=== PATIENT | female | born 1965 | race Caucasian/White ===

== ENCOUNTER 2016-04-20 17:24 | Emergency (ER) | payer OTHER ==
--- NOTE | 2016-04-20 18:55 | DIAGNOSTIC IMAGING REPORT ---
PROCEDURE: XR CHEST 1 VIEW INDICATION: CHEST PAIN, initial encounter TECHNIQUE: Portable AP view 06:23 p.m. COMPARISON: Chest x-ray 01/21/2014 FINDINGS: Lungs are clear. Heart and mediastinum are normal. Thorax is normal. No significant interval change. IMPRESSION: 1. Negative chest.
--- NOTE | 2016-04-20 20:21 | ED NURSING NOTES ---
Clinical Report - Nurses [facility] [address] [place] [address] 04/20/2016 17:28 Patient: MICHELLE JAY TRIAGE Triage time 1734 PM. Acuity: LEVEL 2. Chief Complaint: CHEST PAIN and SHORTNESS OF BREATH and DIFFICULTY BREATHING. Alert. No acute distress. SEPSIS SCREEN: Sepsis Screen. Negative (no infection suspected/documented). CALI COMA SCORE: Rawlins Coma Scale: 15- eyes open spontaneously (4); best verbal response- oriented x 4 (5); best motor response- obeys commands (6). --17:49 Caron Alvarado R.N. 17:33 04/20/16. BP: 180/74 (regular adult cuff) taken on the left arm, via an automated monitor, while sitting. HR: 74 (regular and normal rate). RR: 22. O2 saturation: 100%. Temp: 97.9 F (oral). Pain level now: 0/10. --17:49 Caron Alvarado R.N. Weight: 81.6 kg stated. Height/Length: 65 inches Per Patient. BMI: 30. --17:35 Caron Alvarado R.N. Medications Atenolol Oral 50 mg, 2x a day. --17:36 Caron Alvarado R.N. Tums Oral. --17:49 Caron Alvarado R.N. Allergies No Known Drug Allergy. --17:36 Caron Alvarado R.N. Medication/allergy information source: the patient. --17:49 Caron Alvarado R.N. History Arrived by private vehicle. Historian: patient. Accompanied by family. Primary physician (Dr. Black). Onset. (3 days). ( Pt states having these symptoms for about 5 days on and off, chest pain/right mid section, sweaty hands, and sweaty feet, denies n/v. Pt states last episode of CP about 1 hr ago, decided to come to ER to get evaluated.). She has had difficulty breathing. Reports experiencing sweating episodes. No nausea, vomiting, fever or cough. 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 PAST MEDICAL HX: Immunizations: status is unknown. ( Pt states having "fast heart rate, diagnosed in her 20's and takes Atenolol.). FAMILY HX: Heart disease in first-degree relative (mother, father and sibling); stroke in first-degree relative (mother). SOCIAL HX: Never smoker. No alcohol use. No infectious disease exposure. ABUSE ASSESSMENT: No report of abuse. SELF HARM ASSESSMENT: A self harm assessment was performed. The patient answered "no" to the question "Do you have thoughts of harming or killing yourself?" and "Have you recently had thoughts about harming or killing others?". FALL RISK ASSESSMENT: Fall risk assessment completed. No fall risk identified. NUTRITIONAL RISK ASSESSMENT: The nutritional risk assessment revealed no deficiencies. FUNCTIONAL ASSESSMENT: Functional assessment: no impairments noted. LEARNING NEEDS ASSESSMENT: The learning needs assessment revealed no barriers. SKIN INTEGRITY ASSESSMENT: Skin integrity risk assessment completed. No skin integrity risk identified. --17:49 Caron Alvarado R.N. PROBLEMS: Diarrhea. Chest Wall Pain. LNMP - Last Normal Menstrual Period. Arrhythmia. Immunizations. Palpitations. Gastroenteritis. Hypertension. --17:37 Caron Alvarado R.N. Factor IV. --17:45 Caron Alvarado R.N. Reflux. --17:49 Caron Alvarado R.N. ADDITIONAL SURGERIES: Cholecystectomy. . Ectopic . --17:37 Caron Alvarado R.N. Interventions ID band on patient. --17:49 Caron Alvarado R.N. PHYSICAL ASSESSMENT Ambulatory to room. GENERAL / NEURO / PSYCH: Alert. Oriented X 4. Appears in no acute distress. HEENT: Mucous membranes are pink. RESPIRATORY: Respirations not labored. Chest nontender. Breath sounds within normal limits. CVS: Normal sinus rhythm noted. Heart sounds within normal limits. Pulses within normal limits. Capillary refill less than 2 seconds. GI / : Abdomen soft and nontender. EXTREMITIES: No lower extremity edema. SKIN: Skin is warm and dry. Normal skin turgor. Skin is non-tender. --17:50 Caron Alvarado R.N. NURSING PROGRESS NOTES 17:47 04/20/2016 Site #1 started via IV in the left antecubital space with an 20g angiocath; one attempt. Blood drawn: rainbow set. Labeled in the presence of the patient and sent to the lab. --17:52 Caron Alvarado R.N. 17:45 04/20/16. BP: 145/75 (regular adult cuff) taken on the right arm, via an automated monitor, while lying. HR: 70. RR: 15. O2 saturation: 97% on room air. Pain level now: 0/10. --17:54 Caron Alvarado R.N. Cardiac rhythm: normal sinus rhythm. The initial plan of care for this patient has been created This plan of care was discussed with the patient. Monitoring of patient in place. EKG was performed by a fernando and shown to the ED physician. Patient gowned and refused to place gown on. Warming measures: blanket applied. Reassurance given and given. Two patient identifiers checked. Call light placed in reach. Side rails up x 1. Bed placed in lowest position. Brakes of bed on. Brakes of chair on. --17:54 Caron Alvarado R.N. 18:22 04/20/2016 Started bag #1 1000 mL IV Fluids IV NS (Saline); bolus of 1000 mL over 1 hour(s) then at 1000 mL/hr over 1 hour(s) via site #1 --18:22 Caron Alvarado R.N. 18:23 04/20/2016 Aspirin PO Tablets 325 mg given. Allergies verified and confirmed 5 rights. --18:23 Caron Alvarado R.N. Monitoring of patient in place. Portable chest x-ray performed. Reassurance given. The patient is calm. Overall patient status is improved- she states feels the same. GENERAL / NEURO / PSYCH: Denies anxiety. HEENT: Denies headache. RESPIRATORY: Denies difficulty breathing. Respiratory distress present. Breath sounds abnormal. CVS: Denies chest pain. Normal sinus rhythm noted. GI / : Denies nausea. SKIN: Skin is warm and dry. Skin color within normal limits. Two patient identifiers checked. Call light placed in reach. Side rails up x 1. Brakes of bed on. Brakes of chair on. --18:25 Caron Alvarado R.N. 18:15 04/20/16. BP: 122/78 (regular adult cuff) taken on the right arm, via an automated monitor, while lying. HR: 68 (regular). RR: 15. O2 saturation: 99% on room air. Pain level now: 010. --18:25 Caron Alvarado R.N. ( Cardiac rhythm: normal sinus rhythm. Reassurance given. Reassessment after fluids administered and medication administered. She is calm and resting quietly and has had no adverse reaction. Overall patient status is improved- she states feels better. ( Denies any CP or SOB, calm resting in bed.). GENERAL / NEURO / PSYCH: Denies pain or anxiety. RESPIRATORY: Denies difficulty breathing. No respiratory distress present. Respiratory distress present. Breath sounds normal. No decreased breath sounds. SKIN: Denies itching or swelling. Skin is warm and dry. Skin color within normal limits. Two patient identifiers checked. Call light placed in reach. Side rails up. Bed placed in lowest position. Brakes of bed on. Brakes of chair on. 19:20 Caron Alvarado R.N.). --19:22 Caron Alvarado R.N. 19:00 04/20/16. BP: 115/65. HR: 70. RR: 15. O2 saturation: 100% on room air. Temp: 97.9 F (oral). --19:23 Caron Alvarado R.N. Cardiac rhythm: normal sinus rhythm. --19:23 Caron Alvarado R.N. 19:37 04/20/2016 IV Fluids IV NS Discontinued: bag #1 completed. Total amount infused: 1000 mL. IV patency established. IV site checked: no pain, redness, or swelling. IV flushed thoroughly. --20:38 Sarahi García. DISPOSITION / DISCHARGE 20:36 04/20/16. BP: 122/71. HR: 66. RR: 20. O2 saturation: 100% on room air. Temp: deferred. Pain level now: 210. --20:37 Sarahi García 20:32 04/20/2016 Site #1 removed upon discharge. Catheter intact. Bandaid applied. --20:37 Sarahi García 20:37 04/20/16. Condition at departure: stable. No learning barriers present. Discharge instructions provided and reviewed with the patient and spouse. Patient and spouse verbalized understanding. Written instructions provided in Austrian. ( Follow up with PCP for next available appointment. Return if symptoms worsen.). The patient was discharged by the physician. She was discharged home and accompanied by spouse. She left the Emergency Department ambulatory and via private vehicle. Spouse driving. FALL RISK ASSESSMENT: Fall risk assessment completed. No fall risk identified. --20:37 Sarahi García. Locked/Released at 04/20/2016 21:08 by Sarahi García,
--- NOTE | 2016-04-20 20:21 | ED CLINICAL REPORT ---
Clinical Report - Physicians/Mid Levels [facility] [address] [place] [address] 04/20/2016 17:28 Patient: MICHELLE JAY Time Seen: 17:34. Arrived- By private vehicle. Historian- patient. HISTORY OF PRESENT ILLNESS Chief Complaint: CHEST DISCOMFORT. At its maximum, severity described as moderate. When seen in the E.D., it was almost gone. Modifying factors. Not worsened by anything. Not relieved by anything. It is described as sharp, "pain" and diffuse. No radiation. This started about 5 days ago and is still present. It has been intermittent. The patient cannot recall the circumstances at the onset. No nausea, vomiting or diaphoresis. She has had mild difficulty breathing. (Pt states she also has been having sweaty palms, but no diaphoresis otherwise. She states she saw her doctor recently, but her doctor did not seem concerned about this. Pt states she did have an in-depth cardiac work-up about 1 year ago, including CT coronary angiogram, which was negative. She sees a gui developer occasionally for dysrhythmia, but was cleared from the standpoint of CAD, she states. Pt states she is worried about blood clots, because she has a coagulopathy. However, she states she is not on anticoagulants, because she has 3 different clotting disorders that cancel each other out. Pt denies history of clots; she states she was worked up because a close relative had a clot. Pt denies pain or swelling in her lower extremities.). Similar symptoms previously: Recent medical care: The patient was seen recently at another facility in a clinic. REVIEW OF SYSTEMS No fever, chills, cough, pedal edema or calf pain. No fainting episodes, headache, sore throat, blurred vision or abdominal pain. No black stools, difficulty with urination, skin rash, enlarged lymph nodes or joint pain. No bloody stools. All systems otherwise negative, except as recorded above. PAST HISTORY Problems: Reflux. Factor IV. LNMP - Last Normal Menstrual Period. Arrhythmia. Immunizations. Palpitations. Gastroenteritis. Hypertension. Additional Surgeries: Cholecystectomy. . Ectopic . Medications: Tums Oral. Atenolol Oral 50 mg, 2x a day. Allergies: No Known Drug Allergy. SOCIAL HISTORY Never smoker. No alcohol use or drug use. ADDITIONAL NOTES The nursing notes have been reviewed. PHYSICAL EXAM Vital Signs: 04/20/2016 17:33 BP: 180/74. HR: 74. RR: 22. O2 saturation: 100%. Temp: 97.9 F. Pain level now: 0/10. Have been reviewed. Appearance: Alert. Oriented X3. No acute distress. Eyes: Pupils equal, round and reactive to light. Eyes normal inspection. ENT: Nose normal. Neck: Normal inspection. Neck supple. CVS: Normal heart rate and rhythm. Heart sounds normal. Pulses normal. Respiratory: No respiratory distress. Breath sounds normal. Chest nontender. Abdomen: Soft and nontender. Back: Normal external inspection. Skin: Skin warm and dry. Normal skin color. No rash. Normal skin turgor. Extremities: Extremities exhibit normal ROM. No calf tenderness. No lower extremity edema. (Calves are symmetrical bilaterally.). Neuro: Oriented X 3. No motor deficit. No sensory deficit. LABS, X-RAYS, AND EKG EKG: EKG time: (1740). No acute process. No acute ischemia. Normal EKG. Normal sinus rhythm. Rate: 74. Normal P waves. Normal CORKY. Normal QRS complex. Normal axis. Normal ST and T waves, QT and QTc. Prior EKG unavailable. The study has been interpreted contemporaneously by me. The study has been independently viewed by me. The EKG appears to be a good tracing. I agree with and confirm the computer reading of the EKG. Rhythm Strip #1: Time: (1747). Rate= 75. Normal sinus rhythm. Regular rhythm. Narrow QRS complexes. No ectopy. Conduction normal. Normal ST segments and T waves. The study was interpreted by me. Chest X-ray: No acute disease. Normal lung markings present. Normal heart size. Mediastinum normal. Great vessels normal. Soft tissues normal. No infiltrate. No fracture. No bony lesion present. Views: AP (portable). Technique: good. The X-rays were independently viewed by me, interpreted by the radiologist and contemporaneously by me and discussed with the radiologist. Prior films were not available for comparison. Laboratory Tests: CBC w Diff: (MARY: 04/20/2016 17:45) ( [facility] 18:22) Final results Test Result Flag Units (Reference) WHITE BLOOD COUNT 8.6 K/uL (4.5-11.5) RED BLOOD COUNT 4.57 M/uL (4.00-5.20) HEMOGLOBIN 13.7 gm/dL (12.0-16.0) HEMATOCRIT 42.0 % (36.0-46.0) MEAN CELL VOLUME 92 fL (80-100) MEAN CORPUSCULAR HGB 30 pg (26-34) MEAN CORPUSCULAR HGB CONC 33 g/dL (31-37) RED CELL DISTRIBUTION WIDTH 13.4 % (11.6-14.8) PLATELET COUNT 281 K/uL (150-400) NEUTROPHIL % 60.1 % (50-75) LYMPH % 29.4 % (25-40) MONO % 9.1 % (3-14) EOSINOPHIL % 0.9 % (0-4) BASOPHIL % 0.5 % (0-2) CHEM 13 PANEL: (MARY: 04/20/2016 17:45) ( [facility] 04/20/2016 18:48) Final results Test Result Flag Units (Reference) GLUCOSE 112 H mg/dL (70-110) BUN 18 mg/dL (7-18) CREATININE 0.9 mg/dL (0.6-1.3) Estimated GFR >60 mL/min Estimated GFR- >60 mL/min Note: Persistent reduction over 3 months in eGFR<60 mL/min/1.73 m2 defines CKD. Patients with eGFR values>=60 mL/min/1.73 m2 may also have CKD if evidence ofpersistent proteinuria. Additional information may be foundat www.kidney.org. SODIUM 142 mmol/L (136-145) POTASSIUM 3.7 mmol/L (3.5-5.1) CHLORIDE 104 mmol/L (98-107) CARBON DIOXIDE 28 mmol/L (21-32) CALCIUM 9.2 mg/dL (8.5-10.1) TOTAL PROTEIN 8.1 g/dL (6.4-8.2) ALBUMIN 3.8 g/dL (3.3-5.0) BILIRUBIN, TOTAL 0.6 mg/dL (0.0-1.0) ALKALINE PHOSPHATASE 95 U/L (46-116) AST (SGOT) 26 U/L (15-37) ALT (SGPT) 34 U/L (12-78) MAGNESIUM 2.3 mg/dL (1.8-2.4) CPK 82 U/L (24-260) TROPONIN I <0.05 L ng/mL (0.00-1.5) TROPONIN REFERENCE RANGE:<0.1 NEGATIVE0.1-1.5 INDETERMINANT>1.5 POSITIVE . Pulse Oximetry: 04/20/2016 17:33 O2 saturation: 100%. (FIO2 - room air). Interpretation: normal. PROGRESS AND PROCEDURES Course of Care: Pt was worked up for her sx, and given a liter of NS and a dose of ASA. Pt had atypical sx, which were waxing and waning, and additionally, did not have any signs or sx or DVT. However, she did have the reported history of coagulopathy (though the details were somewhat vague), and I did feel that she should have a CTA, to evaluate for a PE. I did discuss this with the pt, but she was resistant to the idea, stating that now she feels better, and does not think it is a clot, after all. After a lengthy discussion, pt declined the CTA. Pt did have a fairly recent, extensive, negative cardiac work-up, as well, and I felt that an impending coronary event was also unlikely at this time. Patient and spouse counseled in person regarding the patient's stable condition, test results, diagnosis and need for follow-up. Concerns were addressed. Old medical records reviewed. Disposition: Discharged. Condition: stable and improved. CLINICAL IMPRESSION Chest pain .12 lead EKG performed. INSTRUCTIONS Warnings: GENERAL WARNINGS: Return or contact your physician immediately if your condition worsens or changes unexpectedly, if not improving as expected, or if other problems arise. Your Current Medications: CONTINUE TAKING THE FOLLOWING MEDICATIONS: Atenolol Oral : 50 mg 2x a day. Tums Oral. Follow-up: Follow up with your doctor. Call for the next available appointment. Reason for referral: Follow up ER visit. Understanding of the discharge instructions verbalized by patient. (Electronically signed by Rebeca Schaeffer MD 04/24/2016 21:34)
--- NOTE | 2016-04-20 20:21 | ED ORDER SUMMARY ---
..... Patient: MICHELLE JAY OrderSheet [facility] VisitID: [id number] [address] [place] [address] 50y, F Registration Date/Time: 04/20/2016 ORDER SHEET Weight: 81.6 kg (stated) Allergies: No Known Drug Allergy GENERAL ORDERS: Chest 1V Urgent (18:15 04/20/2016 Katja LANZA) (Ack 18:31 LTapper) (18:56 MCampbell) Yard Spotter (Continuous) (18:15 04/20/2016 Katja LANZA) (18:16 EHassan R.N.) Cardiac Panel Stat (18:16 04/20/2016 Katja LANZA) (Ack 18:31 LTapper) (19:49 VASILEullard R.N.) Pulse oximeter (18:16 04/20/2016 Katja LANZA) (18:16 EHassan R.N.) EKG - ER Stat (18:16 04/20/2016 Katja LANZA) (18:17 EHassan R.N.) CTA Thorax w Cont (No) (Normal) Urgent (19:15 04/20/2016 Katja LANZA) (Ack 19:26 LMuller) MEDICATION ORDERS: Aspirin PO 325 mg (NOW) (18:22 04/20/2016 EHassan R.N. verbal order read back to Katja LANZA) (18:23 EHassan R.N.) IV FLUIDS: IV NS : initial bolus 1000 mL (1000 mL/hr), then none - (NOW) (18:15 04/20/2016 Katja LANZA) (18:22 EHassan R.N.) ORDER SHEET NOTES: [Electronically signed by Sarahi García (21:08 04/20/2016)] [Electronically signed by Rebeca Schaeffer MD (21:34 04/24/2016)] [Electronically locked/signed by Sarahi García (21:08 04/20/2016)]
--- NOTE | 2016-04-20 20:21 | ED ORDER SUMMARY ---
..... Patient: MICHELLE JAY OrderSheet [facility] VisitID: [id number] [address] [place] [address] 50y, F Registration Date/Time: 04/20/2016 ORDER SHEET Weight: 81.6 kg (stated) Allergies: No Known Drug Allergy GENERAL ORDERS: Chest 1V Urgent (18:15 04/20/2016 Katja LANZA) (Ack 18:31 LTapper) (18:56 MCampbell) Pedigree Tracer (Continuous) (18:15 04/20/2016 Katja LANZA) (18:16 EHassan R.N.) Cardiac Panel Stat (18:16 04/20/2016 Katja LANZA) (Ack 18:31 LTapper) (19:49 VASILEullard R.N.) Pulse oximeter (18:16 04/20/2016 Katja LANZA) (18:16 EHassan R.N.) EKG - ER Stat (18:16 04/20/2016 Katja LANZA) (18:17 EHassan R.N.) CTA Thorax w Cont (No) (Normal) Urgent (19:15 04/20/2016 Katja LANZA) (Ack 19:26 LMuller) MEDICATION ORDERS: Aspirin PO 325 mg (NOW) (18:22 04/20/2016 EHassan R.N. verbal order read back to Katja LANZA) (18:23 EHassan R.N.) IV FLUIDS: IV NS : initial bolus 1000 mL (1000 mL/hr), then none - (NOW) (18:15 04/20/2016 Katja LANZA) (18:22 EHassan R.N.) ORDER SHEET NOTES: [Electronically signed by Sarahi García (21:08 04/20/2016)] [Electronically signed by Rebeca Schaeffer MD (21:34 04/24/2016)] [Electronically locked/signed by Sarahi García (21:08 04/20/2016)]
--- NOTE | 2016-04-24 21:35 | ED MED RECONCILIATION SUMMARY ---
Patient: MICHELLE JAY Medication Reconciliation Report [facility] VisitID: [id number] [address] [place] [address] 50y, F Registration Date/Time: 04/20/2016 Weight: 81.6 kg Height/Length: 65 in. BMI: 30.0 ALLERGIES: No Known Drug Allergy The patient's Home Medications are listed below: CONTINUE TAKING THE FOLLOWING MEDICATIONS: Atenolol Oral 50 mg, 2x a day Tums Oral The source(s) of the original Home Medication information: patient The following Medications were given to the patient in the Emergency Department: IV NS IV Fluids bolus 1000 mL over 1 hour(s), then 1000 mL/hr, administered: 04/20/2016 6:22:00 PM Aspirin [PO] PO 325 mg, administered: 04/20/2016 6:23:00 PM The following Medications were prescribed to the patient: None.
--- NOTE | 2016-04-24 21:35 | ED DISCHARGE INSTRUCTIONS ---
Patient: MICHELLE JAY General Instructions [facility] VisitID: [id number] [address] [place] [address] 50y, F Registration Date/Time: 04/20/2016 Chest pain .12 lead EKG performed. INSTRUCTIONS Warnings: GENERAL WARNINGS: Return or contact your physician immediately if your condition worsens or changes unexpectedly, if not improving as expected, or if other problems arise. Your Current Medications: CONTINUE TAKING THE FOLLOWING MEDICATIONS: Atenolol Oral : 50 mg 2x a day. Tums Oral. Follow-up: Follow up with your doctor. Call for the next available appointment. Reason for referral: Follow up ER visit. Understanding of the discharge instructions verbalized by patient. ADDITIONAL INFORMATION Chest Pain, Uncertain Cause Chest pain can happen for a number of reasons. Sometimes the cause can not be determined. If yourcondition does not seem serious, and your pain does not appear to be coming from your heart, your doctor may recommend watching it closely. Sometimes the signs of a serious problem take more time to appear. Therefore, watch for the warning signs listed below. Home care After your visit, follow these recommendations: Rest today and avoid strenuous activity. Take any prescribed medicine as directed. Follow-up care Follow up with your doctor or this facility as instructed or if you do not start to feel better within 24 hours. Call 911 Get immediate medical attention if any of the following occur: A change in the type of pain: if it feels different, becomes more severe, lasts longer, or begins to spread into your shoulder, arm, neck, jaw or back Shortness of breath or increased pain with breathing Weakness, dizziness, or fainting Rapid heart beat Get prompt medical attention Call your doctor right away if any of the following occur: Cough with dark colored sputum (phlegm) or blood Fever of 100.4F(38C) or higher, or as directed by your health care provider Swelling, pain or redness in one leg You have been given the following additional information: Chest Pain, Uncertain Cause (Electronically signed by Rebeca Schaeffer MD 04/24/2016 21:34)
--- NOTE | 2016-04-24 21:35 | ED MAR SUMMARY ---
..... Medication Administration Record [facility] [address] [place] [address] Patient: MICHELLE JAY Visit ID: [id number] 50y, F Weight: 81.6 kg Height/Length: 65 in BMI: 30 ALLERGIES: No Known Drug Allergy Start 18:22 04/20/2016 Caron Alvarado R.N., Stop 19:37 04/20/2016 Sarhai García, Medication Administered: IV NS (SALINE), Dose: IV Fluids over 1 hour(s), Rate: 1000 mL/hr, Bolus: 1000 mL over 1 hour(s), Dispensed: 1000 mL bag, Site: #1 left . Medication Ordered: IV NS : initial bolus 1000 mL (1000 mL/hr), then none - (NOW). Given 18:23 04/20/2016 Caron Alvarado RTerrell Medication Administered: ASPIRIN [PO], Dose: 325 mg Tablets PO. Medication Ordered: Aspirin PO 325 mg (NOW).
--- NOTE | 2016-04-24 21:35 | ED MED RECONCILIATION SUMMARY ---
Patient: MICHELLE JAY Medication Reconciliation Report [facility] VisitID: [id number] [address] [place] [address] 50y, F Registration Date/Time: 04/20/2016 Weight: 81.6 kg Height/Length: 65 in. BMI: 30.0 ALLERGIES: No Known Drug Allergy The patient's Home Medications are listed below: CONTINUE TAKING THE FOLLOWING MEDICATIONS: Atenolol Oral 50 mg, 2x a day Tums Oral The source(s) of the original Home Medication information: patient The following Medications were given to the patient in the Emergency Department: IV NS IV Fluids bolus 1000 mL over 1 hour(s), then 1000 mL/hr, administered: 04/20/2016 6:22:00 PM Aspirin [PO] PO 325 mg, administered: 04/20/2016 6:23:00 PM The following Medications were prescribed to the patient: None.
--- NOTE | 2016-04-24 21:35 | ED MAR SUMMARY ---
..... Medication Administration Record [facility] [address] [place] [address] Patient: MICHELLE JAY Visit ID: [id number] 50y, F Weight: 81.6 kg Height/Length: 65 in BMI: 30 ALLERGIES: No Known Drug Allergy Start 18:22 04/20/2016 Caron Alvarado R.N., Stop 19:37 04/20/2016 Sarahi García, Medication Administered: IV NS (SALINE), Dose: IV Fluids over 1 hour(s), Rate: 1000 mL/hr, Bolus: 1000 mL over 1 hour(s), Dispensed: 1000 mL bag, Site: #1 left . Medication Ordered: IV NS : initial bolus 1000 mL (1000 mL/hr), then none - (NOW). Given 18:23 04/20/2016 Caron Alvarado RTerrell Medication Administered: ASPIRIN [PO], Dose: 325 mg Tablets PO. Medication Ordered: Aspirin PO 325 mg (NOW).
--- NOTE | 2016-04-24 21:35 | ED DISCHARGE INSTRUCTIONS ---
Patient: MICHELLE JAY General Instructions [facility] VisitID: [id number] [address] [place] [address] 50y, F Registration Date/Time: 04/20/2016 Chest pain .12 lead EKG performed. INSTRUCTIONS Warnings: GENERAL WARNINGS: Return or contact your physician immediately if your condition worsens or changes unexpectedly, if not improving as expected, or if other problems arise. Your Current Medications: CONTINUE TAKING THE FOLLOWING MEDICATIONS: Atenolol Oral : 50 mg 2x a day. Tums Oral. Follow-up: Follow up with your doctor. Call for the next available appointment. Reason for referral: Follow up ER visit. Understanding of the discharge instructions verbalized by patient. ADDITIONAL INFORMATION Chest Pain, Uncertain Cause Chest pain can happen for a number of reasons. Sometimes the cause can not be determined. If yourcondition does not seem serious, and your pain does not appear to be coming from your heart, your doctor may recommend watching it closely. Sometimes the signs of a serious problem take more time to appear. Therefore, watch for the warning signs listed below. Home care After your visit, follow these recommendations: Rest today and avoid strenuous activity. Take any prescribed medicine as directed. Follow-up care Follow up with your doctor or this facility as instructed or if you do not start to feel better within 24 hours. Call 911 Get immediate medical attention if any of the following occur: A change in the type of pain: if it feels different, becomes more severe, lasts longer, or begins to spread into your shoulder, arm, neck, jaw or back Shortness of breath or increased pain with breathing Weakness, dizziness, or fainting Rapid heart beat Get prompt medical attention Call your doctor right away if any of the following occur: Cough with dark colored sputum (phlegm) or blood Fever of 100.4F(38C) or higher, or as directed by your health care provider Swelling, pain or redness in one leg You have been given the following additional information: Chest Pain, Uncertain Cause (Electronically signed by Rebeca Schaeffer MD 04/24/2016 21:34)
== END 2016-04-20 20:30 | disposition home or self-care (01) ==
LOC: ED SRH 17:24
DX: R07.89 Other chest pain (principal); I10 Essential (primary) hypertension; K21.9 Gastro-esophageal reflux disease without esophagitis
CPT/HCPCS: 90100; 90616; 92610; 92720; 95059

== ENCOUNTER 2016-04-21 12:33 | Emergency (ER) | payer OTHER ==
--- NOTE | 2016-04-21 15:31 | DIAGNOSTIC IMAGING REPORT ---
PROCEDURE: CTA THORAX WITH CONTRAST INDICATION: SHORTNESS OF BREATH, initial encounter TECHNIQUE: 76 ml of Isovue 370 was injected intravenously and axial images were obtained of the entire thorax with 3D sagittal and coronal MIP reconstructions. COMPARISON: CTA thorax 01/27/2014 FINDINGS: No evidence of pulmonary emboli. Right upper lobe scarring. No adenopathy or effusion. Normal thoracic aorta without dissection or aneurysm. No coronary atherosclerosis. Mild cardiomegaly. Cholecystectomy. The bones are unremarkable. IMPRESSION: 1. No evidence of prior emboli 2. Mild cardiomegaly 3. Cholecystectomy 4. Results discussed with Dr. Mao
--- NOTE | 2016-04-21 16:15 | ED ORDER SUMMARY ---
..... Patient: MICHELLE JAY OrderSheet [facility] VisitID: [id number] [address] [place] [address] 50y, F Registration Date/Time: 04/21/2016 ORDER SHEET Weight: 81.6 kg (stated) Allergies: No Known Drug Allergy GENERAL ORDERS: Chest 1V Urgent (13:25 04/21/2016 Conor LANZA) (Ack 13:34 LTapper) (14:38 Conor LANZA) (Cancelled: Other14:38 Conor LANZA) Forklift Picker (Continuous) (13:04/21/2016 Conor LANZA) (13:57 EInderbitzen R.N.) CBC w Diff Urgent (13:04/21/2016 Conor LANZA) (Ack 13:34 LTapper) (13:57 EInderbitzen R.N.) CMP Urgent (13:04/21/2016 Conor LANZA) (Ack 13:34 LTapper) (13:57 EInderbitzen R.N.) Amylase Urgent (13:04/21/2016 Conor LANZA) (Ack 13:34 LTapper) (13:57 EInderbitzen R.N.) Lipase Urgent (13:04/21/2016 Conor LANZA) (Ack 13:34 LTapper) (13:57 EInderbitzen R.N.) CPK Urgent (13:04/21/2016 Conor LANZA) (Ack 13:34 LTapper) (13:57 EInderbitzen R.N.) Troponin-I Urgent (13:04/21/2016 Conor LANZA) (Ack 13:34 LTapper) (13:57 EInderbitzen R.N.) D-Dimer Urgent (13:04/21/2016 Conor LANZA) (Ack 13:34 LTapper) (13:57 EInderbitzen R.N.) BNP Urgent (13:04/21/2016 Conor LANZA) (Ack 13:34 LTapper) (13:57 EInderbitzen R.N.) Oxygen (2 L/min) (NC) (13:26 04/21/2016 Conor LANZA) (13:57 Ashley R.N.) Pulse oximeter (13:26 04/21/2016 Conor LANZA) (13:57 Ashley R.N.) EKG - ER Stat (13:26 04/21/2016 Conor LANZA) (Ack 13:34 LTapper) (13:37 Harris R.N.) (Cancelled: Physician Order13:38 Harris R.N.) CTA Thorax w Cont (No) (See report) Urgent (14:38 04/21/2016 Conor LANZA) (Ack 14:43 LTapper) (15:02 LTapper) PT with INR Urgent (14:45 04/21/2016 Conor LANZA) (Ack 15:03 LTapper) PTT Urgent (14:45 04/21/2016 Conor LANZA) (Ack 15:03 LTapper) MEDICATION ORDERS: IV FLUIDS: IV Saline Lock (13:26 04/21/2016 Conor LANZA) (13:58 Ashley R.N.) ORDER SHEET NOTES: [Electronically signed by Flor Hankins R.N. (00:04/22/2016)] [Electronically signed by Lalito Mao MD (17:04/28/2016)] [Electronically locked/signed by Flor Hankins R.N. (00:04/22/2016)]
--- NOTE | 2016-04-21 16:15 | ED CLINICAL REPORT ---
Clinical Report - Physicians/Mid Levels [facility] [address] [place] [address] 04/21/2016 12:33 Patient: MICHELLE JAY Time Seen: 13:25. Arrived- By private vehicle. Historian- patient. HISTORY OF PRESENT ILLNESS Chief Complaint: DYSPNEA. This started about 1 1/2 weeks ago and is still present. It was gradual in onset and has been waxing/waning. The dyspnea is described as moderate. No cough, sputum production, fever, chills or calf pain. No foot swelling. She has experienced sweating episodes (on her hands for 5 days). She has had wheezing (chronically). She has had dyspnea on exertion. She has had chest discomfort (about 1 week ago she had several events of sharp, stabbing CP that only lasted a few seconds). (the patient was seen here yesterday evening for similar symptoms. She underwent a workup and it was suggested that she have a CT scan of her chest. However, she declined it at that time. This morning she has changed her mind and would like to have this worked up further including the CT angiogram). Recent medical care: The patient was seen recently at this facility. REVIEW OF SYSTEMS No chills, fever, sweats, calf pain or pedal edema. No palpitations, abdominal pain, constipation, diarrhea or nausea. No vomiting or urinary problems. All systems otherwise negative, except as recorded above. PAST HISTORY PCP - Soraya. Problems: Prothrombin gene mutation. Protein C deficiency. Factor V Leiden mutation. Pulmonary Nodule. Chest Pain. Reflux. Diarrhea. Chest Wall Pain. Arrhythmia. Palpitations. Gastroenteritis. Hypertension. Additional Surgeries: Cholecystectomy. . Ectopic . Medications: [place]. Atenolol Oral. Allergies: No Known Drug Allergy. SOCIAL HISTORY Never smoker. FAMILY HISTORY Heart disease in multiple family members, first-degree relative (mother, father and sibling). her daughter has a history of a cardiac septal defect and clotting disorders. ADDITIONAL NOTES The nursing notes have been reviewed. PHYSICAL EXAM Vital Signs: 04/21/2016 13:21 BP: 118/87. HR: 94. RR: 16. O2 saturation: 98%. Temp: 98.1 F. Have been reviewed. Appearance: No acute distress. Eyes: Pupils equal, round and reactive to light. ENT: Pharynx normal. Neck: Normal inspection. CVS: Normal heart rate and rhythm. Respiratory: No respiratory distress. Breath sounds normal. LABS, X-RAYS, AND EKG EKG: No acute process. Rate: 58. The study has been independently viewed by me. Chest CT: No pulmonary embolism. (mild cardiomegaly status post cholecystectomy). The study was interpreted contemporaneously by me and discussed with the radiologist. Laboratory Tests: CBC w Diff: (MARY: 04/21/2016 13:50) ( MsgRcvd 04/21/2016 14:05) Final results Test Result Flag Units (Reference) WHITE BLOOD COUNT 6.8 K/uL (4.5-11.5) RED BLOOD COUNT 4.36 M/uL (4.00-5.20) HEMOGLOBIN 13.1 gm/dL (12.0-16.0) HEMATOCRIT 40.0 % (36.0-46.0) MEAN CELL VOLUME 92 fL (80-100) MEAN CORPUSCULAR HGB 30 pg (26-34) MEAN CORPUSCULAR HGB CONC 33 g/dL (31-37) RED CELL DISTRIBUTION WIDTH 13.2 % (11.6-14.8) PLATELET COUNT 271 K/uL (150-400) NEUTROPHIL % 67.3 % (50-75) LYMPH % 24.0 L % (25-40) MONO % 7.3 % (3-14) EOSINOPHIL % 1.0 % (0-4) BASOPHIL % 0.4 % (0-2) PT with INR: (MARY: 04/21/2016 13:50) ( MsgRcvd 04/21/2016 14:59) Final results Test Result Flag Units (Reference) INR 0.9 (0.8-1.2) Low Intensity Therapy: INR 1.5-2.0 PT range 18.5-23.1Mod.Intensity Therapy: INR 2.0-3.0 PT range 23.1-31.5High Intensity Therapy: INR 2.5-3.5 PT range 27.4-35.5High Intensity Therapy 2: INR 3.0-4.0 PT range 31.5-39.3 APTT 31 SECONDS (24-34) [id number]: (MARY: 04/21/2016 13:50) ( [facility] 04/21/2016 14:36) Final results Test Result Flag Units (Reference) D-DIMER QUANTITATIVE 1.21 H ug/mLFEU (0.27-0.52) The primary value of this quantitative assay relates toits negative predictive value (i.e. exclusion) of pulmonaryembolism/deep vein thrombosis/DIC.Elevated levels of d-dimer may also occur with:, age, cancer, inflammation, liver disease,post-op, infection, hematoma, coronary disease, peripheralarteriopathy, bleeding disorders and thrombolytic treatment.Results should be correlated with other clinical andradiological data.Testing Methodology: Latex Immunoassay BNP: (MARY: 04/21/2016 13:50) ( [facility] 04/21/2016 14:29) Final results Test Result Flag Units (Reference) B-TYPE NATRIURETIC PEPTIDE 116 H pg/ml (5-100) CMP: (MARY: 04/21/2016 13:50) ( [facility] [place] [place] 04/21/2016 14:36) Final results Test Result Flag Units (Reference) GLUCOSE 98 mg/dL (70-110) BUN 13 mg/dL (7-18) CREATININE 0.8 mg/dL (0.6-1.3) Estimated GFR >60 mL/min Estimated GFR- >60 mL/min Note: Persistent reduction over 3 months in eGFR<60 mL/min/1.73 m2 defines CKD. Patients with eGFR values>=60 mL/min/1.73 m2 may also have CKD if evidence ofpersistent proteinuria. Additional information may be foundat www.kidney.org. SODIUM 142 mmol/L (136-145) POTASSIUM 3.9 mmol/L (3.5-5.1) CHLORIDE 106 mmol/L (98-107) CARBON DIOXIDE 29 mmol/L (21-32) CALCIUM 9.6 mg/dL (8.5-10.1) TOTAL PROTEIN 7.8 g/dL (6.4-8.2) ALBUMIN 3.7 g/dL (3.3-5.0) BILIRUBIN, TOTAL 0.7 mg/dL (0.0-1.0) ALKALINE PHOSPHATASE 90 U/L (46-116) AST (SGOT) 25 U/L (15-37) ALT (SGPT) 32 U/L (12-78) LIPASE 140 U/L (73-393) AMYLASE 49 U/L (25-115) CPK 81 U/L (24-260) TROPONIN I <0.05 ng/mL (0.00-1.5) TROPONIN REFERENCE RANGE:<0.1 NEGATIVE0.1-1.5 INDETERMINANT>1.5 POSITIVE . PROGRESS AND PROCEDURES Course of Care: Patient is stable. Patient/family counseled. Old medical records reviewed. Disposition: Discharged. Condition: stable. CLINICAL IMPRESSION Dyspnea INSTRUCTIONS Warnings: Further evaluation is necessary. GENERAL WARNINGS: Return or contact your physician immediately if your condition worsens or changes unexpectedly, if not improving as expected, or if other problems arise. Your Current Medications: CONTINUE TAKING THE FOLLOWING MEDICATIONS: Atenolol Oral. Follow-up: Follow up with your doctor in seven days. Call for the next available appointment. Follow up with a malt liquors sales representative- as recommended by your primary care physician. Understanding of the discharge instructions verbalized by patient. (Electronically signed by Lalito Mao MD 04/28/2016 17:10)
--- NOTE | 2016-04-21 16:15 | ED NURSING NOTES ---
Clinical Report - Nurses [facility] [address] [place] [address] 04/21/2016 12:33 [id number] TRI[facility] Triage time 13:21 Apr 21 2016. Acuity: LEVEL 4. Chief Complaint: (FEELS SHORT OF BREATH, NOT FEELING RIGHT). SEPSIS SCREEN: Sepsis Screen. Negative (no infection suspected/documented). PAULO COMA SCORE: Paulo Coma Scale: 15- eyes open spontaneously (4); best verbal response- oriented x 4 (5); best motor response- obeys commands (6). --13:27 Flor Hankins R.N. 13:21 04/21/16. BP: 118/87. HR: 94. RR: 16. O2 saturation: 98%. Temp: 98.1 F. Pain level now 0/10. --13:27 Flor Hankins R.N. Weight: 81.6 kg stated. Height/Length: 65 inches Per Patient. BMI: 30. --13:21 Flor Hankins R.N. Medications Atenolol Oral. --13:22 Flor Hankins R.N. [place]. --13:22 Flor Hankins R.N. Medication/allergy information source: the patient. --13:27 Flor Hankins R.N. Allergies No Known Drug Allergy. --13:23 Flor Hankins R.N. History Arrived by private vehicle. Historian: patient. Primary physician (WILFRED NUNES). Onset. (6 DAYS AGO). She has had difficulty breathing. No fever, weakness, cough or skin rash. Denies muscle aches. Treatment HOUSING DIRECTOR: None. PAST MEDICAL HX: Immunizations: has received pneumonia vaccine. Has not received seasonal influenza immunization. SOCIAL HX: Never smoker. No alcohol use or drug use. No infectious disease exposure. ABUSE ASSESSMENT: No report of abuse. SELF HARM ASSESSMENT: A self harm assessment was performed. The patient answered "no" to the question "Have you recently felt down, depressed, or hopeless?", "Have you noticed less interest or pleasure in doing things?", "Do you have thoughts of harming or killing yourself?", "Are you here because you tried to hurt yourself?", "Have you ever tried to hurt yourself before today?", "Have you recently had thoughts about harming or killing others?" and "Do you have any dangerous items in your possession?". FALL RISK ASSESSMENT: Fall risk assessment completed. No fall risk identified. NUTRITIONAL RISK ASSESSMENT: The nutritional risk assessment revealed no deficiencies. FUNCTIONAL ASSESSMENT: Functional assessment: no impairments noted. LEARNING NEEDS ASSESSMENT: The learning needs assessment revealed no barriers. SKIN INTEGRITY ASSESSMENT: Skin integrity risk assessment completed. No skin integrity risk identified. --13:27 Flor Hankins R.N. PROBLEMS: Reflux. Arrhythmia. Palpitations. Hypertension. --13:24 Flor Hankins R.N. ADDITIONAL SURGERIES: Cholecystectomy. . Ectopic . --13:24 Flor Hankins R.N. Interventions ID band on patient. --13:27 Flor Hankins R.N. PHYSICAL ASSESSMENT 13:29 04/21/16. Ambulatory to room. GENERAL / NEURO / PSYCH: Alert. Oriented X 4. HEENT: Pupils equal, round and reactive to light. No facial asymmetry noted. Mucous membranes are pink. RESPIRATORY: Respirations not labored. CVS: Pulses within normal limits. GI / : ( normal appetite, no bowel or bladder problems). Abdomen soft. SKIN: Skin intact. Skin is warm and dry. Normal skin turgor. --13:29 Flor Hankins R.N. NURSING PROGRESS NOTES 13:21 04/21/16. The initial plan of care for this patient includes an assessment with efforts to address the patient's anxiety; impairment of the respiratory system. This plan of care was discussed with the patient. Patient gowned. Reassurance given. Two patient identifiers checked. Call light placed in reach. Bed placed in lowest position. Brakes of bed on. Patient ready for evaluation. --13:28 Flor Hankins R.N. 13:50 04/21/2016 Site #1 started via IV in the left antecubital space with an 20g angiocath, with aseptic technique and good blood return; one attempt. Blood drawn: rainbow set. Labeled in the presence of the patient and sent to the lab. Saline lock flushed with 10 mL saline. --13:56 Flor Hankins R.N. 14:57 04/21/16. ( waiting for ct scan to be completed). --14:57 Flor Hankins R.N. 14:57 04/21/16. BP: 118/58. HR: 59. RR: 16. O2 saturation: 100%. Pain level now 0/10. --14:57 Flor Hankins R.N. 15:17 04/21/16. Patient transported to CT by stretcher. (and returned). --15:17 Flor Hankins R.N. 15:24 04/21/16. The patient is calm and resting quietly. Overall patient status is the same- she states feels the same. Patient waiting for CT results and disposition. --15:24 Flor Hankins R.N. 16:33 04/21/16. BP: 123/74. HR: 68. RR: 20. O2 saturation: 100%. Temp: 98.2 F. Pain level now 0/10. --16:34 Kassi Fournier R.N. DISPOSITION / DISCHARGE 16:28 04/21/2016 Site #1 removed upon discharge. Catheter intact. Bandaid applied. --16:28 Flor Hankins R.N. 16:29 04/21/16. Condition at departure: improved and stable. The goals identified in the patient's plan of care were met. No learning barriers present. Discharge instructions provided and reviewed with the patient. Reviewed medication(s) side effects, precautions, dosing and course information. Prescription(s) given to the patient. Reviewed referral to a primary care physician for followup. Patient verbalized understanding. Written instructions provided in Hungarian. The patient was discharged home and unaccompanied at time of discharge. She left the Emergency Department ambulatory and via private vehicle. Patient driving. FALL RISK ASSESSMENT: Fall risk assessment completed. No fall risk identified. --16:29 Flor Hankins R.N. Departure time: 16:34 Apr 21 2016. --16:34 Kassi Fournier R.N. 16:33 04/21/16. BP: 123/74. HR: 68. RR: 20. O2 saturation: 100%. Temp: 98.2 F. Pain level now 0/10. --16:34 Kassi Fournier R.N. Locked/Released at 04/22/2016 0:10 by Flor Hankins R.N.
--- NOTE | 2016-04-21 16:15 | ED ORDER SUMMARY ---
..... Patient: MICHELLE JAY OrderSheet [facility] VisitID: [id number] [address] [place] [address] 50y, F Registration Date/Time: 04/21/2016 ORDER SHEET Weight: 81.6 kg (stated) Allergies: No Known Drug Allergy GENERAL ORDERS: Chest 1V Urgent (13:25 04/21/2016 Conor LANZA) (Ack 13:34 LTapper) (14:38 Conor LANZA) (Cancelled: Other14:38 Conor LANZA) Welt Cutter (Continuous) (13:04/21/2016 Conor LANZA) (13:57 EInderbitzen R.N.) CBC w Diff Urgent (13:04/21/2016 Conor LANZA) (Ack 13:34 LTapper) (13:57 EInderbitzen R.N.) CMP Urgent (13:04/21/2016 Conor LANZA) (Ack 13:34 LTapper) (13:57 EInderbitzen R.N.) Amylase Urgent (13:04/21/2016 Conor LANZA) (Ack 13:34 LTapper) (13:57 EInderbitzen R.N.) Lipase Urgent (13:04/21/2016 Conor LANZA) (Ack 13:34 LTapper) (13:57 EInderbitzen R.N.) CPK Urgent (13:04/21/2016 Conor LANZA) (Ack 13:34 LTapper) (13:57 EInderbitzen R.N.) Troponin-I Urgent (13:04/21/2016 Conor LANZA) (Ack 13:34 LTapper) (13:57 EInderbitzen R.N.) D-Dimer Urgent (13:04/21/2016 Conor LANZA) (Ack 13:34 LTapper) (13:57 EInderbitzen R.N.) BNP Urgent (13:04/21/2016 Conor LANZA) (Ack 13:34 LTapper) (13:57 EInderbitzen R.N.) Oxygen (2 L/min) (NC) (13:26 04/21/2016 Conor LANZA) (13:57 Ashley R.N.) Pulse oximeter (13:26 04/21/2016 Conor LANZA) (13:57 Ashley R.N.) EKG - ER Stat (13:26 04/21/2016 Conor LANZA) (Ack 13:34 LTapper) (13:37 Harris R.N.) (Cancelled: Physician Order13:38 Harris R.N.) CTA Thorax w Cont (No) (See report) Urgent (14:38 04/21/2016 Conor LANZA) (Ack 14:43 LTapper) (15:02 LTapper) PT with INR Urgent (14:45 04/21/2016 Conor LANZA) (Ack 15:03 LTapper) PTT Urgent (14:45 04/21/2016 Conor LANZA) (Ack 15:03 LTapper) MEDICATION ORDERS: IV FLUIDS: IV Saline Lock (13:26 04/21/2016 Conor LANZA) (13:58 Ashley R.N.) ORDER SHEET NOTES: [Electronically signed by Flor Hankins R.N. (00:04/22/2016)] [Electronically signed by Lalito Mao MD (17:04/28/2016)] [Electronically locked/signed by Flor Hankins R.N. (00:04/22/2016)]
--- NOTE | 2016-04-21 16:15 | ED NURSING NOTES ---
Clinical Report - Nurses [facility] [address] [place] [address] 04/21/2016 12:33 [id number] Triage time 13:21 Apr 21 2016. Acuity: LEVEL 4. Chief Complaint: (FEELS SHORT OF BREATH, NOT FEELING RIGHT). SEPSIS SCREEN: Sepsis Screen. Negative (no infection suspected/documented). PAULO COMA SCORE: Paulo Coma Scale: 15- eyes open spontaneously (4); best verbal response- oriented x 4 (5); best motor response- obeys commands (6). --13:27 Flor Hankins R.N. 13:21 04/21/16. BP: 118/87. HR: 94. RR: 16. O2 saturation: 98%. Temp: 98.1 F. Pain level now 0/10. --13:27 Flor Hankins R.N. Weight: 81.6 kg stated. Height/Length: 65 inches Per Patient. BMI: 30. --13:21 Flor Hankins R.N. Medications Atenolol Oral. --13:22 Flor Hankins R.N. [place]. --13:22 Flor Hankins R.N. Medication/allergy information source: the patient. --13:27 Flor Hankins R.N. Allergies No Known Drug Allergy. --13:23 Flor Hankins R.N. History Arrived by private vehicle. Historian: patient. Primary physician (WILFRED NUNES). Onset. (6 DAYS AGO). She has had difficulty breathing. No fever, weakness, cough or skin rash. Denies muscle aches. Treatment MECHANIC'S ASSISTANT: None. PAST MEDICAL HX: Immunizations: has received pneumonia vaccine. Has not received seasonal influenza immunization. SOCIAL HX: Never smoker. No alcohol use or drug use. No infectious disease exposure. ABUSE ASSESSMENT: No report of abuse. SELF HARM ASSESSMENT: A self harm assessment was performed. The patient answered "no" to the question "Have you recently felt down, depressed, or hopeless?", "Have you noticed less interest or pleasure in doing things?", "Do you have thoughts of harming or killing yourself?", "Are you here because you tried to hurt yourself?", "Have you ever tried to hurt yourself before today?", "Have you recently had thoughts about harming or killing others?" and "Do you have any dangerous items in your possession?". FALL RISK ASSESSMENT: Fall risk assessment completed. No fall risk identified. NUTRITIONAL RISK ASSESSMENT: The nutritional risk assessment revealed no deficiencies. FUNCTIONAL ASSESSMENT: Functional assessment: no impairments noted. LEARNING NEEDS ASSESSMENT: The learning needs assessment revealed no barriers. SKIN INTEGRITY ASSESSMENT: Skin integrity risk assessment completed. No skin integrity risk identified. --13:27 Flor Hankins R.N. PROBLEMS: Reflux. Arrhythmia. Palpitations. Hypertension. --13:24 Flor Hankins R.N. ADDITIONAL SURGERIES: Cholecystectomy. . Ectopic . --13:24 Flor Hankins R.N. Interventions ID band on patient. --13:27 Flor Hankins R.N. PHYSICAL ASSESSMENT 13:29 04/21/16. Ambulatory to room. GENERAL / NEURO / PSYCH: Alert. Oriented X 4. HEENT: Pupils equal, round and reactive to light. No facial asymmetry noted. Mucous membranes are pink. RESPIRATORY: Respirations not labored. CVS: Pulses within normal limits. GI / : ( normal appetite, no bowel or bladder problems). Abdomen soft. SKIN: Skin intact. Skin is warm and dry. Normal skin turgor. --13:29 Flor Hankins R.N. NURSING PROGRESS NOTES 13:21 04/21/16. The initial plan of care for this patient includes an assessment with efforts to address the patient's anxiety; impairment of the respiratory system. This plan of care was discussed with the patient. Patient gowned. Reassurance given. Two patient identifiers checked. Call light placed in reach. Bed placed in lowest position. Brakes of bed on. Patient ready for evaluation. --13:28 Flor Hankins R.N. 13:50 04/21/2016 Site #1 started via IV in the left antecubital space with an 20g angiocath, with aseptic technique and good blood return; one attempt. Blood drawn: rainbow set. Labeled in the presence of the patient and sent to the lab. Saline lock flushed with 10 mL saline. --13:56 Flor Hankins R.N. 14:57 04/21/16. ( waiting for ct scan to be completed). --14:57 Flor Hankins R.N. 14:57 04/21/16. BP: 118/58. HR: 59. RR: 16. O2 saturation: 100%. Pain level now 0/10. --14:57 Flor Hankins R.N. 15:17 04/21/16. Patient transported to CT by stretcher. (and returned). --15:17 Flor Hankins R.N. 15:24 04/21/16. The patient is calm and resting quietly. Overall patient status is the same- she states feels the same. Patient waiting for CT results and disposition. --15:24 Flor Hankins R.N. 16:33 04/21/16. BP: 123/74. HR: 68. RR: 20. O2 saturation: 100%. Temp: 98.2 F. Pain level now 0/10. --16:34 Kassi Fournier R.N. DISPOSITION / DISCHARGE 16:28 04/21/2016 Site #1 removed upon discharge. Catheter intact. Bandaid applied. --16:28 Flor Hankins R.N. 16:29 04/21/16. Condition at departure: improved and stable. The goals identified in the patient's plan of care were met. No learning barriers present. Discharge instructions provided and reviewed with the patient. Reviewed medication(s) side effects, precautions, dosing and course information. Prescription(s) given to the patient. Reviewed referral to a primary care physician for followup. Patient verbalized understanding. Written instructions provided in American. The patient was discharged home and unaccompanied at time of discharge. She left the Emergency Department ambulatory and via private vehicle. Patient driving. FALL RISK ASSESSMENT: Fall risk assessment completed. No fall risk identified. --16:29 Flor Hankins R.N. Departure time: 16:34 Apr 21 2016. --16:34 Kassi Fournier R.N. 16:33 04/21/16. BP: 123/74. HR: 68. RR: 20. O2 saturation: 100%. Temp: 98.2 F. Pain level now 0/10. --16:34 Kassi Fournier R.N. Locked/Released at 04/22/2016 0:10 by Flor Hankins R.N.
--- NOTE | 2016-04-21 16:15 | ED CLINICAL REPORT ---
Clinical Report - Physicians/Mid Levels [facility] [address] [place] [place] [address] 04/21/2016 12:33 Patient: MICHELLE JAY Time Seen: 13:25. Arrived- By private vehicle. Historian- patient. HISTORY OF PRESENT ILLNESS Chief Complaint: DYSPNEA. This started about 1 1/2 weeks ago and is still present. It was gradual in onset and has been waxing/waning. The dyspnea is described as moderate. No cough, sputum production, fever, chills or calf pain. No foot swelling. She has experienced sweating episodes (on her hands for 5 days). She has had wheezing (chronically). She has had dyspnea on exertion. She has had chest discomfort (about 1 week ago she had several events of sharp, stabbing CP that only lasted a few seconds). (the patient was seen here yesterday evening for similar symptoms. She underwent a workup and it was suggested that she have a CT scan of her chest. However, she declined it at that time. This morning she has changed her mind and would like to have this worked up further including the CT angiogram). Recent medical care: The patient was seen recently at this facility. REVIEW OF SYSTEMS No chills, fever, sweats, calf pain or pedal edema. No palpitations, abdominal pain, constipation, diarrhea or nausea. No vomiting or urinary problems. All systems otherwise negative, except as recorded above. PAST HISTORY PCP - Soraya. Problems: Prothrombin gene mutation. Protein C deficiency. Factor V Leiden mutation. Pulmonary Nodule. Chest Pain. Reflux. Diarrhea. Chest Wall Pain. Arrhythmia. Palpitations. Gastroenteritis. Hypertension. Additional Surgeries: Cholecystectomy. . Ectopic . Medications: [place]. Atenolol Oral. Allergies: No Known Drug Allergy. SOCIAL HISTORY Never smoker. FAMILY HISTORY Heart disease in multiple family members, first-degree relative (mother, father and sibling). her daughter has a history of a cardiac septal defect and clotting disorders. ADDITIONAL NOTES The nursing notes have been reviewed. PHYSICAL EXAM Vital Signs: 04/21/2016 13:21 BP: 118/87. HR: 94. RR: 16. O2 saturation: 98%. Temp: 98.1 F. Have been reviewed. Appearance: No acute distress. Eyes: Pupils equal, round and reactive to light. ENT: Pharynx normal. Neck: Normal inspection. CVS: Normal heart rate and rhythm. Respiratory: No respiratory distress. Breath sounds normal. LABS, X-RAYS, AND EKG EKG: No acute process. Rate: 58. The study has been independently viewed by me. Chest CT: No pulmonary embolism. (mild cardiomegaly status post cholecystectomy). The study was interpreted contemporaneously by me and discussed with the radiologist. Laboratory Tests: CBC w Diff: (MARY: 04/21/2016 13:50) ( MsgRcvd 04/21/2016 14:05) Final results Test Result Flag Units (Reference) WHITE BLOOD COUNT 6.8 K/uL (4.5-11.5) RED BLOOD COUNT 4.36 M/uL (4.00-5.20) HEMOGLOBIN 13.1 gm/dL (12.0-16.0) HEMATOCRIT 40.0 % (36.0-46.0) MEAN CELL VOLUME 92 fL (80-100) MEAN CORPUSCULAR HGB 30 pg (26-34) MEAN CORPUSCULAR HGB CONC 33 g/dL (31-37) RED CELL DISTRIBUTION WIDTH 13.2 % (11.6-14.8) PLATELET COUNT 271 K/uL (150-400) NEUTROPHIL % 67.3 % (50-75) LYMPH % 24.0 L % (25-40) MONO % 7.3 % (3-14) EOSINOPHIL % 1.0 % (0-4) BASOPHIL % 0.4 % (0-2) PT with INR: (MARY: 04/21/2016 13:50) ( MsgRcvd 04/21/2016 14:59) Final results Test Result Flag Units (Reference) INR 0.9 (0.8-1.2) Low Intensity Therapy: INR 1.5-2.0 PT range 18.5-23.1Mod.Intensity Therapy: INR 2.0-3.0 PT range 23.1-31.5High Intensity Therapy: INR 2.5-3.5 PT range 27.4-35.5High Intensity Therapy 2: INR 3.0-4.0 PT range 31.5-39.3 APTT 31 SECONDS (24-34) [id number]: (MARY: 04/21/2016 13:50) ( [facility] 04/21/2016 14:36) Final results Test Result Flag Units (Reference) D-DIMER QUANTITATIVE 1.21 H ug/mLFEU (0.27-0.52) The primary value of this quantitative assay relates toits negative predictive value (i.e. exclusion) of pulmonaryembolism/deep vein thrombosis/DIC.Elevated levels of d-dimer may also occur with:, age, cancer, inflammation, liver disease,post-op, infection, hematoma, coronary disease, peripheralarteriopathy, bleeding disorders and thrombolytic treatment.Results should be correlated with other clinical andradiological data.Testing Methodology: Latex Immunoassay BNP: (MARY: 04/21/2016 13:50) ( [facility] 04/21/2016 14:29) Final results Test Result Flag Units (Reference) B-TYPE NATRIURETIC PEPTIDE 116 H pg/ml (5-100) CMP: (MARY: 04/21/2016 13:50) ( [facility] [place] [place] 04/21/2016 14:36) Final results Test Result Flag Units (Reference) GLUCOSE 98 mg/dL (70-110) BUN 13 mg/dL (7-18) CREATININE 0.8 mg/dL (0.6-1.3) Estimated GFR >60 mL/min Estimated GFR- >60 mL/min Note: Persistent reduction over 3 months in eGFR<60 mL/min/1.73 m2 defines CKD. Patients with eGFR values>=60 mL/min/1.73 m2 may also have CKD if evidence ofpersistent proteinuria. Additional information may be foundat www.kidney.org. SODIUM 142 mmol/L (136-145) POTASSIUM 3.9 mmol/L (3.5-5.1) CHLORIDE 106 mmol/L (98-107) CARBON DIOXIDE 29 mmol/L (21-32) CALCIUM 9.6 mg/dL (8.5-10.1) TOTAL PROTEIN 7.8 g/dL (6.4-8.2) ALBUMIN 3.7 g/dL (3.3-5.0) BILIRUBIN, TOTAL 0.7 mg/dL (0.0-1.0) ALKALINE PHOSPHATASE 90 U/L (46-116) AST (SGOT) 25 U/L (15-37) ALT (SGPT) 32 U/L (12-78) LIPASE 140 U/L (73-393) AMYLASE 49 U/L (25-115) CPK 81 U/L (24-260) TROPONIN I <0.05 ng/mL (0.00-1.5) TROPONIN REFERENCE RANGE:<0.1 NEGATIVE0.1-1.5 INDETERMINANT>1.5 POSITIVE . PROGRESS AND PROCEDURES Course of Care: Patient is stable. Patient/family counseled. Old medical records reviewed. Disposition: Discharged. Condition: stable. CLINICAL IMPRESSION Dyspnea INSTRUCTIONS Warnings: Further evaluation is necessary. GENERAL WARNINGS: Return or contact your physician immediately if your condition worsens or changes unexpectedly, if not improving as expected, or if other problems arise. Your Current Medications: CONTINUE TAKING THE FOLLOWING MEDICATIONS: Atenolol Oral. Follow-up: Follow up with your doctor in seven days. Call for the next available appointment. Follow up with a accounting intern- as recommended by your primary care physician. Understanding of the discharge instructions verbalized by patient. (Electronically signed by Lalito Mao MD 04/28/2016 17:10)
--- NOTE | 2016-04-28 17:11 | ED DISCHARGE INSTRUCTIONS ---
Patient: MICHELLE JAY General Instructions [facility] VisitID: [id number] [address] [place] [place] [address] 50y, F Registration Date/Time: 04/21/2016 Dyspnea INSTRUCTIONS Warnings: Further evaluation is necessary. GENERAL WARNINGS: Return or contact your physician immediately if your condition worsens or changes unexpectedly, if not improving as expected, or if other problems arise. Your Current Medications: CONTINUE TAKING THE FOLLOWING MEDICATIONS: Atenolol Oral. Follow-up: Follow up with your doctor in seven days. Call for the next available appointment. Follow up with a director of content marketing- as recommended by your primary care physician. Understanding of the discharge instructions verbalized by patient. ADDITIONAL INFORMATION Dyspnea (Shortness Of Breath) Shortness of Breath (also known as "Dyspnea") is the sense that you can't catch your breath or can't get enough air. Dyspnea can be caused by many different conditions such as: Acute asthma attack Worsening of emphysema (also called "COPD") -- a lung diseasethat is caused by smoking A mucus plug blocks a large air passage in the lung -- this can occur with emphysema or chronic bronchitis Congestive Heart Failure ("CHF") -- when a weak heart muscle allows excess fluid to collect inthe lungs Panic attacks, anxiety -- fear can cause rapid breathing ("hyperventilation") Pneumonia -- infection in the lung tissue Exposure to toxic fumes or smoke Pulmonary embolus (blood clot to the lung) Based on your visit today, the exact cause of your shortness of breath is not certain. Your tests do not show any of the serious causes of dyspnea. Sometimes, further testing is needed to find out if a serious problem exists. Therefore, it is important for you to watch for any new symptoms or worsening of your condition and follow up with your doctor as directed. Home Care: When your symptoms are better, resume your usual activities. If you smoke, you need to stop. Join a stop-smoking program or ask your doctor for help. Follow Up with your doctor or as advised by our staff. Get Prompt Medical Attention if any of the following occur: Increasing shortness of breath or wheezing Redness, pain or swelling in one leg Swelling in both legs or ankles Unexpected weight gain Chest, arm, shoulder, neck or upper back pain Dizziness, weakness or fainting Palpitations (the sense that your heart is fluttering, beating fast or hard) Fever of 100.4F (38C) or higher, or as directed by your healthcare provider Cough with dark colored or bloody sputum (mucus) You have been given the following additional information: Dyspnea (Electronically signed by Lalito Mao MD 04/28/2016 17:10)
--- NOTE | 2016-04-28 17:11 | ED DISCHARGE INSTRUCTIONS ---
Patient: MICHELLE JAY General Instructions [facility] VisitID: [id number] [address] [place] [address] 50y, F Registration Date/Time: 04/21/2016 Dyspnea INSTRUCTIONS Warnings: Further evaluation is necessary. GENERAL WARNINGS: Return or contact your physician immediately if your condition worsens or changes unexpectedly, if not improving as expected, or if other problems arise. Your Current Medications: CONTINUE TAKING THE FOLLOWING MEDICATIONS: Atenolol Oral. Follow-up: Follow up with your doctor in seven days. Call for the next available appointment. Follow up with a appraiser real estate- as recommended by your primary care physician. Understanding of the discharge instructions verbalized by patient. ADDITIONAL INFORMATION Dyspnea (Shortness Of Breath) Shortness of Breath (also known as "Dyspnea") is the sense that you can't catch your breath or can't get enough air. Dyspnea can be caused by many different conditions such as: Acute asthma attack Worsening of emphysema (also called "COPD") -- a lung diseasethat is caused by smoking A mucus plug blocks a large air passage in the lung -- this can occur with emphysema or chronic bronchitis Congestive Heart Failure ("CHF") -- when a weak heart muscle allows excess fluid to collect inthe lungs Panic attacks, anxiety -- fear can cause rapid breathing ("hyperventilation") Pneumonia -- infection in the lung tissue Exposure to toxic fumes or smoke Pulmonary embolus (blood clot to the lung) Based on your visit today, the exact cause of your shortness of breath is not certain. Your tests do not show any of the serious causes of dyspnea. Sometimes, further testing is needed to find out if a serious problem exists. Therefore, it is important for you to watch for any new symptoms or worsening of your condition and follow up with your doctor as directed. Home Care: When your symptoms are better, resume your usual activities. If you smoke, you need to stop. Join a stop-smoking program or ask your doctor for help. Follow Up with your doctor or as advised by our staff. Get Prompt Medical Attention if any of the following occur: Increasing shortness of breath or wheezing Redness, pain or swelling in one leg Swelling in both legs or ankles Unexpected weight gain Chest, arm, shoulder, neck or upper back pain Dizziness, weakness or fainting Palpitations (the sense that your heart is fluttering, beating fast or hard) Fever of 100.4F (38C) or higher, or as directed by your healthcare provider Cough with dark colored or bloody sputum (mucus) You have been given the following additional information: Dyspnea (Electronically signed by Lalito Mao MD 04/28/2016 17:10)
--- NOTE | 2016-04-28 17:11 | ED MAR SUMMARY ---
..... Medication Administration Record [facility] [address] [place] [address] Patient: MICHELLE JAY Visit ID: [id number] 50y, F Weight: 81.6 kg Height/Length: 65 in BMI: 30 ALLERGIES: No Known Drug Allergy
--- NOTE | 2016-04-28 17:11 | ED MED RECONCILIATION SUMMARY ---
Patient: MICHELLE JAY Medication Reconciliation Report [facility] VisitID: [id number] [address] [place] [address] 50y, F Registration Date/Time: 04/21/2016 Weight: 81.6 kg Height/Length: 65 in. BMI: 30.0 ALLERGIES: No Known Drug Allergy The patient's Home Medications are listed below: CONTINUE TAKING THE FOLLOWING MEDICATIONS: Atenolol Oral THE FOLLOWING MEDICATIONS NEED TO BE RECONCILED: [place] The source(s) of the original Home Medication information: patient The following Medications were given to the patient in the Emergency Department: None. The following Medications were prescribed to the patient: None.
--- NOTE | 2016-04-28 17:11 | ED MAR SUMMARY ---
..... Medication Administration Record [facility] [address] [place] [address] Patient: MICHELLE JAY Visit ID: [id number] 50y, F Weight: 81.6 kg Height/Length: 65 in BMI: 30 ALLERGIES: No Known Drug Allergy
--- NOTE | 2016-04-28 17:11 | ED MED RECONCILIATION SUMMARY ---
Patient: MICHELLE JAY Medication Reconciliation Report [facility] VisitID: [id number] [address] [place] [address] 50y, F Registration Date/Time: 04/21/2016 Weight: 81.6 kg Height/Length: 65 in. BMI: 30.0 ALLERGIES: No Known Drug Allergy The patient's Home Medications are listed below: CONTINUE TAKING THE FOLLOWING MEDICATIONS: Atenolol Oral THE FOLLOWING MEDICATIONS NEED TO BE RECONCILED: [place] The source(s) of the original Home Medication information: patient The following Medications were given to the patient in the Emergency Department: None. The following Medications were prescribed to the patient: None.
== END 2016-04-21 16:34 | disposition home or self-care (01) ==
LOC: ED SRH 12:33
DX: R06.00 Dyspnea, unspecified (principal); I10 Essential (primary) hypertension; K52.9 Noninfective gastroenteritis and colitis, unspecified; Z79.899 Other long term (current) drug therapy
CPT/HCPCS: 90100; 90616; 91320; 91556; 92235; 92530; 92610; 94001; 94060; 95059

== ENCOUNTER 2016-05-05 15:20 | Emergency (ER) | payer OTHER ==
--- NOTE | 2016-05-05 17:30 | ED CLINICAL REPORT ---
Clinical Report - Physicians/Mid Levels [facility] [address] [place] [place] [address] 05/05/2016 15:20 Patient: MICHELLE JAY Time Seen: 15:34; initial patient contact. Arrived- By private vehicle. Historian- patient. HISTORY OF PRESENT ILLNESS Chief Complaint: CHEST DISCOMFORT. This started about 3 weeks ago. Onset during rest. It is described as indigestion and diffuse and it is described as located in the left chest area and epigastric area. No radiation. At its maximum, severity described as mild. When seen in the E.D., severity described as mild. Modifying factors. Not worsened by anything. Not relieved by anything. No nausea, vomiting or difficulty breathing. She has experienced diaphoresis. Similar symptoms previously: Many times. Recent medical care: The patient was seen recently at this facility in the emergency department (Neg w/u 3 weeks ago, pos D dimer, neg CTA.). REVIEW OF SYSTEMS No fever, chills, pedal edema or calf pain. All systems otherwise negative, except as recorded above. PAST HISTORY Dyspnea. Prothrombin gene mutation. Factor V Leiden mutation. Pulmonary Nodule. Chest Pain. Reflux. Diarrhea. Chest Wall Pain. Arrhythmia. Palpitations. Gastroenteritis. Hypertension. SURGERIES: Cholecystectomy. . Ectopic . Medications: Atenolol Oral. Allergies: Adhesive Tape. No Known Drug Allergy. SOCIAL HISTORY Never smoker. No alcohol use or drug use. ADDITIONAL NOTES The nursing notes have been reviewed with agreement regarding the chief complaint, PMH and patient medications and allergies. PHYSICAL EXAM Vital Signs: 05/05/2016 15:31 BP: 133/86. HR: 81. RR: 16. O2 saturation: 98%. Temp: 98.0 F. Have been reviewed as normal. Appearance: Alert. Oriented X3. No acute distress. Eyes: Eyes normal inspection. ENT: Pharynx normal. Neck: Normal inspection. No thyromegaly. CVS: Bradycardia. Heart sounds normal. Rhythm normal. Respiratory: No respiratory distress. Breath sounds normal. Chest nontender. Abdomen: Soft. Mild tenderness in the epigastric area and left upper quadrant. No guarding or rebound tenderness. Bowel sounds normal. No organomegaly. No mass. Skin: Skin warm and dry. Normal skin color. No rash. Extremities: Extremities exhibit normal ROM. No calf tenderness. No lower extremity edema. Neuro: Oriented X 3. No motor deficit. LABS, X-RAYS, AND EKG EKG: EKG time: (1634). No acute ischemia. Bradycardia (ventricular rate 56). Sinus bradycardia. Normal P waves. Normal CORKY. Normal QRS complex. Normal axis. Normal ST and T waves, QT and QTc. Prior EKG unavailable. The study has been interpreted contemporaneously by me. The study has been independently viewed by me. The EKG appears to be a good tracing. Interpretation time: 1634. Laboratory Tests: UA-Culture if indicated: (MARY: 05/05/2016 17:05) ( MsgRcvd 05/05/2016 17:23) Final results Test Result Flag Units (Reference) URINE COLOR YELLOW URINE APPEARANCE CLEAR URINE GLUCOSE NEGATIVE (NEGATIVE) URINE BILIRUBIN NEGATIVE (NEGATIVE) URINE KETONE NEGATIVE (NEGATIVE) URINE SPECIFIC GRAVITY <= 1.005 L (1.010-1.030) URINE PH 7.0 (5.0-8.0) URINE PROTEIN NEGATIVE (NEGATIVE) URINE UROBILINOGEN 0.2 EU/dL (0.2-1.0) URINE NITRITE NEGATIVE (NEGATIVE) URINE BLOOD TRACE-INTACT (NEGATIVE) URINE LEUK ESTERASE NEGATIVE (NEGATIVE) URINE RBC 1-3 rbc/hpf (0-1) URINE WBC 1-3 wbc/hpf (0-1) URINE EPITHELIAL CELLS 3-5 EPI/hpf (0-5) URINE BACTERIA TRACE (<1+) (NONE SEEN) URINE COMMENT CULT NOT INDICATED URINE CULTURES ARE SET-UP BASED ON THE FOLLOWING CRITERIA:POSITIVE NITRITEPOSITIVE LEUKOCYTE ESTERASEGREATER THAN 10 WHITE BLOOD CELLSMODERATE (2+) OR GREATER BACTERIA Monoscreen: (MARY: 05/05/2016 16:15) ( MsgRcvd 05/05/2016 17:23) Final results Test Result Flag Units (Reference) MONOSCREEN NEGATIVE (NEGATIVE) CBC w Diff: (MARY: 05/05/2016 16:15) ( MsgRcvd 05/05/2016 16:33) Final results Test Result Flag Units (Reference) WHITE BLOOD COUNT 6.3 K/uL (4.5-11.5) RED BLOOD COUNT 4.45 M/uL (4.00-5.20) HEMOGLOBIN 13.3 gm/dL (12.0-16.0) HEMATOCRIT 40.7 % (36.0-46.0) MEAN CELL VOLUME 91 fL (80-100) MEAN CORPUSCULAR HGB 30 pg (26-34) MEAN CORPUSCULAR HGB CONC 33 g/dL (31-37) RED CELL DISTRIBUTION WIDTH 12.7 % (11.6-14.8) PLATELET COUNT 268 K/uL (150-400) NEUTROPHIL % 56.1 % (50-75) LYMPH % 34.3 % (25-40) MONO % 7.7 % (3-14) EOSINOPHIL % 1.3 % (0-4) BASOPHIL % 0.6 % (0-2) CMP: (MARY: 05/05/2016 16:15) ( MsgRcvd 05/05/2016 17:01) Final results Test Result Flag Units (Reference) GLUCOSE 98 mg/dL (70-110) BUN 11 mg/dL (7-18) CREATININE 1.0 mg/dL (0.6-1.3) Estimated GFR >60 mL/min Estimated GFR- >60 mL/min Note: Persistent reduction over 3 months in eGFR<60 mL/min/1.73 m2 defines CKD. Patients with eGFR values>=60 mL/min/1.73 m2 may also have CKD if evidence ofpersistent proteinuria. Additional information may be foundat www.kidney.org. SODIUM 141 mmol/L (136-145) POTASSIUM 3.7 mmol/L (3.5-5.1) CHLORIDE 104 mmol/L (98-107) CARBON DIOXIDE 30 mmol/L (21-32) CALCIUM 9.1 mg/dL (8.5-10.1) TOTAL PROTEIN 7.6 g/dL (6.4-8.2) ALBUMIN 3.7 g/dL (3.3-5.0) BILIRUBIN, TOTAL 0.6 mg/dL (0.0-1.0) ALKALINE PHOSPHATASE 85 U/L (46-116) AST (SGOT) 21 U/L (15-37) ALT (SGPT) 28 U/L (12-78) THYROID STIMULATING HORMONE 1.298 uIU/mL (0.34-3.74) . PROGRESS AND PROCEDURES Course of Care: 05/05/2016 15:31 BP: 133/86. HR: 81. RR: 16. O2 saturation: 98%. Temp: 98.0 F. Vital Signs: have been reviewed as normal. Disposition: Discharged home in good and improved condition. Condition: good. CLINICAL IMPRESSION Gastroesophageal reflux disease with esophagitis. INSTRUCTIONS Prescription Medications: Zantac 150 mg: take 1 orally every 12 hours. Dispense sixty (60). No refills. Substitution is permissible. Follow-up: Follow up with your doctor in about three days. Call for an appointment. (Electronically signed by Nicholas Ribeiro Dr. 05/05/2016 17:44)
--- NOTE | 2016-05-05 17:30 | ED ORDER SUMMARY ---
..... Patient: MICHELLE JAY OrderSheet [facility] VisitID: [id number] [address] [place] [address] 50y, F Registration Date/Time: 05/05/2016 ORDER SHEET Weight: 81.6 kg (stated) Allergies: No Known Drug Allergy, Adhesive Tape GENERAL ORDERS: CBC w Diff Urgent (16:02 05/05/2016 Rin Medrano) (Ack 16:24 Angie) (16:58 Zuleyka Álvarez.N.) CMP Urgent (16:02 05/05/2016 Rin Medrano) (Ack 16:24 Angie) (16:58 Zuleyka Corbin.) UA-Culture if indicated Urgent (16:02 05/05/2016 Rin Medrano) (Ack 16:24 Angie) (17:10 Angie) TSH Urgent (16:02 05/05/2016 Rin Medrano) (Ack 16:24 Angie) (16:58 Zuleyka Álvarez.N.) Monoscreen Urgent (16:02 05/05/2016 Rin Medrano) (Ack 16:24 Angie) (17:00 Zuleyka De Anda) EKG - ER Stat (16:02 05/05/2016 Rin Medrano) (16:33 LTapper) MEDICATION ORDERS: IV FLUIDS: IV Saline Lock (16:02 05/05/2016 Rin Medrano) (16:19 EBonham) ORDER SHEET NOTES: [Electronically signed by Nicholas Ribeiro Dr. (17:44 05/05/2016)] [Electronically signed by Nickie Ortiz R.N. (22:45 05/05/2016)] [Electronically locked/signed by Nickie Ortiz R.N. (22:45 05/05/2016)]
--- NOTE | 2016-05-05 17:30 | ED ORDER SUMMARY ---
..... Patient: MICHELLE JAY OrderSheet [facility] VisitID: [id number] [address] [address] 50y, F Registration Date/Time: 05/05/2016 ORDER SHEET Weight: 81.6 kg (stated) Allergies: No Known Drug Allergy, Adhesive Tape GENERAL ORDERS: CBC w Diff Urgent (16:02 05/05/2016 Rin Medrano) (Ack 16:24 Angie) (16:58 Zuleyka Álvarez.N.) CMP Urgent (16:02 05/05/2016 Rin Medrano) (Ack 16:24 Angie) (16:58 Zuleyka Corbin.) UA-Culture if indicated Urgent (16:02 05/05/2016 Rin Medrano) (Ack 16:24 Angie) (17:10 Angie) TSH Urgent (16:02 05/05/2016 Rin Medrano) (Ack 16:24 Angie) (16:58 Zuleyka Álvarez.N.) Monoscreen Urgent (16:02 05/05/2016 Rin Medrano) (Ack 16:24 Angie) (17:00 Zuleyka De Anda) EKG - ER Stat (16:02 05/05/2016 Rin Medrano) (16:33 LTapper) MEDICATION ORDERS: IV FLUIDS: IV Saline Lock (16:02 05/05/2016 Rin Medrano) (16:19 EBonham) ORDER SHEET NOTES: [Electronically signed by Nicholas Ribeiro Dr. (17:44 05/05/2016)] [Electronically signed by Nickie Ortiz R.N. (22:45 05/05/2016)] [Electronically locked/signed by Nickie Ortiz R.N. (22:45 05/05/2016)]
--- NOTE | 2016-05-05 17:30 | ED NURSING NOTES ---
Clinical Report - Nurses [facility] [address] [place] [address] 05/05/2016 15:20 Patient: MICHELLE JAY TRIAGE Triage time 15:30. Acuity: LEVEL 3. Chief Complaint: ("weakness, sweaty, and shaky"). Alert. No acute distress. ( Pt. states she has an appt. with her PCP for this but she is not able to get in until 1 week.). SEPSIS SCREEN: Sepsis Screen. Negative (no infection suspected/documented). CALI COMA SCORE: [place] Coma Scale: 15- eyes open spontaneously (4); best verbal response- oriented x 4 (5); best motor response- obeys commands (6). --15:36 Nickie Ortiz R.N. 15:31 05/05/16. BP: 133/86. HR: 81. RR: 16. O2 saturation: 98%. Temp: 98.0 F. Pain level now 0/10. --15:36 Nickie Ortiz R.N. Acuity: LEVEL 4. --15:36 Nickie Ortiz R.N. Weight: 81.6 kg stated. Height/Length: 65 inches Per Patient. BMI: 30. --15:33 Nickie Ortiz R.N. Medications Atenolol Oral. --15:35 Nickie Ortiz R.N. Allergies No Known Drug Allergy. --15:35 Nickie Ortiz R.N. Adhesive Tape. --15:35 Nickie Ortiz R.N. History Arrived by private vehicle. Historian: patient. Unaccompanied. Primary physician (Arlin Ashby). Onset. (I have been suffering from this for a week and a half and it has just gotten worse). Treatment SPOOL SORTER: (none). PAST MEDICAL HX: Immunizations: up-to-date. SOCIAL HX: Never smoker. No alcohol use or drug use. She has not traveled outside the [place] ABUSE ASSESSMENT: Abuse assessment: The patient was asked "Do you feel safe in your home?" and "Has anyone hurt you or threatened to hurt you?". No report of abuse. SELF HARM ASSESSMENT: A self harm assessment was performed. The patient answered "no" to the question "Do you have thoughts of harming or killing yourself?" and "Have you recently had thoughts about harming or killing others?". NUTRITIONAL RISK ASSESSMENT: The nutritional risk assessment revealed no deficiencies. FUNCTIONAL ASSESSMENT: Functional assessment: no impairments noted. LEARNING NEEDS ASSESSMENT: The learning needs assessment revealed no barriers. --15:36 Nickie Ortiz R.N. PROBLEMS: Dyspnea. Prothrombin gene mutation. Factor V Leiden mutation. Pulmonary Nodule. Chest Pain. Reflux. Diarrhea. Chest Wall Pain. Arrhythmia. Palpitations. Gastroenteritis. Hypertension. --15:35 Nickie Ortiz R.N. ADDITIONAL SURGERIES: Cholecystectomy. . Ectopic . --15:36 Nickie Ortiz R.N. Interventions ID band on patient. Ambulatory. --15:36 Nickie Ortiz R.N. PHYSICAL ASSESSMENT Ambulatory to room. GENERAL / NEURO / PSYCH: Alert. Appears in no acute distress. HEENT: Mucous membranes are pink. RESPIRATORY: Respirations not labored. CVS: Pulses within normal limits. Capillary refill less than 2 seconds. GI / : Abdomen soft and nontender. SKIN: Skin is warm and dry. --15:36 Nickie Ortiz R.N. NURSING PROGRESS NOTES Patient gowned. Head of bed elevated. Two patient identifiers checked. Call light placed in reach. Side rails up x 2. Bed placed in lowest position. Brakes of bed on. Patient ready for evaluation- chart flagged. --15:36 Nickie Ortiz R.N. 16:19 05/05/2016 Site #1 started via IV in the left antecubital space with an 20g angiocath, with aseptic technique and good blood return; one attempt. Blood drawn: rainbow set. Labeled in the presence of the patient and sent to the lab. Saline lock flushed with 10 mL saline. --16:19 Flor Lawler EKG time: (16:34). EKG was performed by a tech and shown to the ED physician. --16:34 Gaurav [place] 17:05. Patient ID band checked for patient name and birthdate: patient confirmed urine collected with return of yellow-colored clear urine; sample sent to lab for urinalysis and culture. Specimen labeled in the presence of the patient. --17:11 Merline Wetzel. DISPOSITION / DISCHARGE Condition at departure: stable. No learning barriers present. Discharge instructions provided and reviewed with the patient. Reviewed medication(s) side effects, precautions, dosing and course information. Prescription(s) given to the patient. Reviewed referral to family practice for followup. Patient verbalized understanding. Written instructions provided in Mongolian. The patient was discharged home and unaccompanied at time of discharge. She left the Emergency Department ambulatory and via private vehicle. Patient driving. Medication list reviewed and validated. --18:07 Nickie Ortiz R.N. 18:04 05/05/16. BP: 134/80. HR: 60. RR: 16. O2 saturation: 100%. Temp: 98.7 F. Pain level now 10. --18:07 Nickie Ortiz R.N. Departure time: 18:07. --18:07 Nickie Ortiz R.N. Locked/Released at 05/05/2016 22:45 by Nickie Ortiz R.N.
--- NOTE | 2016-05-05 22:45 | ED MAR SUMMARY ---
..... Medication Administration Record [facility] [address], [place] [id number] Patient: MICHELLE JAY Visit ID: [id number] 50y, F Weight: 81.6 kg Height/Length: 65 in BMI: 30 ALLERGIES: No Known Drug Allergy, Adhesive Tape
--- NOTE | 2016-05-05 22:45 | ED MAR SUMMARY ---
..... Medication Administration Record [facility] [address], [place] [id number] Patient: MICHELLE JAY Visit ID: [id number] 50y, F Weight: 81.6 kg Height/Length: 65 in BMI: 30 ALLERGIES: No Known Drug Allergy, Adhesive Tape
--- NOTE | 2016-05-05 22:45 | ED MED RECONCILIATION SUMMARY ---
Patient: MICHELLE JAY Medication Reconciliation Report [facility] VisitID: [id number] [address] [place] [address] 50y, F Registration Date/Time: 05/05/2016 Weight: 81.6 kg Height/Length: 65 in. BMI: 30.0 ALLERGIES: Adhesive Tape, No Known Drug Allergy The patient's Home Medications are listed below: THE FOLLOWING MEDICATIONS NEED TO BE RECONCILED: Atenolol Oral The source(s) of the original Home Medication information: Not obtained. The following Medications were given to the patient in the Emergency Department: None. The following Medications were prescribed to the patient: Zantac 150 mg: take 1 orally every 12 hours. Dispense sixty (60). No refills. Substitution is permissible. -- Nicholas Ribeiro Dr.
--- NOTE | 2016-05-05 22:45 | ED DISCHARGE INSTRUCTIONS ---
Patient: MICHELLE JAY General Instructions [facility] VisitID: [id number] [place] [address] 50y, F Registration Date/Time: 05/05/2016 Gastroesophageal reflux disease with esophagitis. INSTRUCTIONS Prescription Medications: Zantac 150 mg: take 1 orally every 12 hours. Dispense sixty (60). No refills. Substitution is permissible. Follow-up: Follow up with your doctor in about three days. Call for an appointment. ADDITIONAL INFORMATION GERD (Adult) The esophagus is a tube that carries food from the mouth to the stomach. A valve at the lower end of the esophagus prevents stomach acid from flowing upward. If this valve does not work properly, acid from the stomach enters the esophagus. If this occurs over and over, the acid will injure the lining of the esophagus. This condition is called GERD (gastroesophageal reflux disease) or acid reflux. When stomach acid flows upward into the esophagus, it causes burning, pressure or sharp pain in the upper abdomen or mid to lower chest. The pain can spread to the neck, back, or shoulder, similar to heart pain (angina). There may be belching, an acid taste in the back of the throat, chronic cough, or sore throat or hoarseness. GERD symptoms often occur during the day after a big meal, but it can also occur at night when lying down. Smoking,as well as drinking alcohol, increases the risk of GERD. GERD is a chronic condition. Once it begins, it is often lifelong. Treatment includes changes in eating habits and the use of acid nehal medications to decrease the amount of acid in the stomach. Symptoms often improve with treatment, but if treatment is stopped, the symptoms usually return after a few months. So most persons with GERD will need to continue treatment. Home Care: Take the prescribed acid nehal medication for the full course of treatment even if you begin to feel better sooner. This medication can take up to several days to fully control your symptoms. If you cant afford the prescribed medication, you can try [id number]-[id number]-ghasgup acid blockers, such as Pepcid AC, Tagamet, Zantac, or Aciphex. If these do not relieve your symptoms, a stronger acid-nehal can be tried, such as Prilosec OTC. You can use antacids, such as Tums, Rolaids, Mylanta, or Maalox, for pain. This will be useful the first few days after starting acid blockers when the blockers havent started working yet. Follow the directions on the label. Liquid antacids may work better than tablets. Note that antacids can interfere with absorption of certain medications. Specifically, do not take Tagamet (cimetidine), Zantac (ranitidine), or Carafate (sucralfate) within 1 hour of taking an antacid. Talk with your pharmacist if you have any questions. Limit or avoid fatty, fried, and spicy foods, as well as coffee, chocolate, mint, and foods with high acid content such as tomatoes and citrus fruit and juices (orange, grapefruit, lemon). Avoid alcohol and smoking. Dont eat large meals, especially at night. Frequent, smaller meals are best. Do not lie down right after eating. And dont eat anything 3 hours before going to bed. If you are overweight, losing weight will reduce symptoms. Women should not wear corsets or girdles because this increases pressure on the stomach and worsens reflux. If your symptoms occur during sleep, use a foam wedge to elevate your upper body (not just your head.) Or, place 4" blocks under the head of your bed. Follow Up with your doctor or as advised by our staff. Further testing may be needed. If you do not begin to improve over the next 4 days, contact your doctor. If you had an x-ray, CT scan, or ECG (electrocardiogram), it will be reviewed by a specialist. Youll be notified of any new findings that affect your care. Get Prompt Medical Attention if any of the following occur: Stomach pain gets worse or moves to the lower right abdomen (appendix area) Chest pain appears or gets worse, or spreads to the back, neck, shoulder, or arm Frequent vomiting (cant keep down liquids) Blood in the stool or vomit (red or black in color) Feeling weak or dizzy, fainting, or trouble breathing Fever of 100.4F (38C) or higher, or as directed by your healthcare provider Ranitidine Hydrochloride Oral tablet What is this medicine? RANITIDINE (ra GIANNI gaxiola) is a type of antihistamine that blocks the release of stomach acid. It is used to treat stomach or intestinal ulcers. It can relieve ulcer pain and discomfort, and the heartburn from acid reflux. How should I use this medicine? Take this medicine by mouth with a glass of water. Follow the directions on the prescription label. If you only take this medicine once a day, take it at bedtime. Take your medicine at regular intervals. Do not take your medicine more often than directed. Do not stop taking except on your doctor's advice. Talk to your juvenile justice officer regarding the use of this medicine in children. Special care may be needed. What side effects may I notice from receiving this medicine? Side effects that you should report to your doctor or health health care facilities inspector as soon as possible: agitation, nervousness, depression, hallucinations allergic reactions like skin rash, itching or hives, swelling of the face, lips, or tongue breast enlargement in both males and females breathing problems redness, blistering, peeling or loosening of the skin, including inside the mouth unusual bleeding or bruising unusually weak or tired vomiting yellowing of the skin or eyes Side effects that usually do not require medical attention (report to your doctor or health health care facilities inspector if they continue or are bothersome): constipation or diarrhea dizziness headache nausea What may interact with this medicine? atazanavir delavirdine gefitinib glipizide ketoconazole midazolam procainamide propantheline triazolam warfarin What if I miss a dose? If you miss a dose, take it as soon as you can. If it is almost time for your next dose, take only that dose. Do not take double or extra doses. Where should I keep my medicine? Keep out of the reach of children. Store at room temperature between 15 and 30 degrees C (59 and 86 degrees F). Protect from light and moisture. Keep container tightly closed. Throw away any unused medicine after the expiration date. What should I tell my health care provider before I take this medicine? They need to know if you have any of these conditions: kidney disease liver disease porphyria an unusual or allergic reaction to ranitidine, other medicines, foods, dyes, or preservatives or trying to get breast-feeding What should I watch for while using this medicine? Tell your doctor or health health care facilities inspector if your condition does not start to get better or gets worse. You may need to take this medicine for several days as prescribed before your symptoms get better. Finish the full course of tablets prescribed, even if you feel better. Do not smoke cigarettes or drink alcohol. These increase irritation in your stomach and can lengthen the time it will take for ulcers to heal. Cigarettes and alcohol can also make acid reflux or heartburn worse. If you get black, tarry stools or vomit up what looks like coffee grounds, call your doctor or health health care facilities inspector at once. You may have a bleeding ulcer. You have been given the following additional information: GERD (Adult) Ranitidine Hydrochloride Oral tablet (Electronically signed by Nicholas Ribeiro Dr. 05/05/2016 17:44)
--- NOTE | 2016-05-05 22:45 | ED DISCHARGE INSTRUCTIONS ---
Patient: MICHELLE JAY General Instructions [facility] VisitID: [id number] [place] [address] 50y, F Registration Date/Time: 05/05/2016 Gastroesophageal reflux disease with esophagitis. INSTRUCTIONS Prescription Medications: Zantac 150 mg: take 1 orally every 12 hours. Dispense sixty (60). No refills. Substitution is permissible. Follow-up: Follow up with your doctor in about three days. Call for an appointment. ADDITIONAL INFORMATION GERD (Adult) The esophagus is a tube that carries food from the mouth to the stomach. A valve at the lower end of the esophagus prevents stomach acid from flowing upward. If this valve does not work properly, acid from the stomach enters the esophagus. If this occurs over and over, the acid will injure the lining of the esophagus. This condition is called GERD (gastroesophageal reflux disease) or acid reflux. When stomach acid flows upward into the esophagus, it causes burning, pressure or sharp pain in the upper abdomen or mid to lower chest. The pain can spread to the neck, back, or shoulder, similar to heart pain (angina). There may be belching, an acid taste in the back of the throat, chronic cough, or sore throat or hoarseness. GERD symptoms often occur during the day after a big meal, but it can also occur at night when lying down. Smoking,as well as drinking alcohol, increases the risk of GERD. GERD is a chronic condition. Once it begins, it is often lifelong. Treatment includes changes in eating habits and the use of acid nehal medications to decrease the amount of acid in the stomach. Symptoms often improve with treatment, but if treatment is stopped, the symptoms usually return after a few months. So most persons with GERD will need to continue treatment. Home Care: Take the prescribed acid nehal medication for the full course of treatment even if you begin to feel better sooner. This medication can take up to several days to fully control your symptoms. If you cant afford the prescribed medication, you can try iaye-euh-xqrzqhw acid blockers, such as Pepcid AC, Tagamet, Zantac, or Aciphex. If these do not relieve your symptoms, a stronger acid-nehal can be tried, such as Prilosec OTC. You can use antacids, such as Tums, Rolaids, Mylanta, or Maalox, for pain. This will be useful the first few days after starting acid blockers when the blockers havent started working yet. Follow the directions on the label. Liquid antacids may work better than tablets. Note that antacids can interfere with absorption of certain medications. Specifically, do not take Tagamet (cimetidine), Zantac (ranitidine), or Carafate (sucralfate) within 1 hour of taking an antacid. Talk with your pharmacist if you have any questions. Limit or avoid fatty, fried, and spicy foods, as well as coffee, chocolate, mint, and foods with high acid content such as tomatoes and citrus fruit and juices (orange, grapefruit, lemon). Avoid alcohol and smoking. Dont eat large meals, especially at night. Frequent, smaller meals are best. Do not lie down right after eating. And dont eat anything 3 hours before going to bed. If you are overweight, losing weight will reduce symptoms. Women should not wear corsets or girdles because this increases pressure on the stomach and worsens reflux. If your symptoms occur during sleep, use a foam wedge to elevate your upper body (not just your head.) Or, place 4" blocks under the head of your bed. Follow Up with your doctor or as advised by our staff. Further testing may be needed. If you do not begin to improve over the next 4 days, contact your doctor. If you had an x-ray, CT scan, or ECG (electrocardiogram), it will be reviewed by a specialist. Youll be notified of any new findings that affect your care. Get Prompt Medical Attention if any of the following occur: Stomach pain gets worse or moves to the lower right abdomen (appendix area) Chest pain appears or gets worse, or spreads to the back, neck, shoulder, or arm Frequent vomiting (cant keep down liquids) Blood in the stool or vomit (red or black in color) Feeling weak or dizzy, fainting, or trouble breathing Fever of 100.4F (38C) or higher, or as directed by your healthcare provider Ranitidine Hydrochloride Oral tablet What is this medicine? RANITIDINE (ra GIANNI gaxiola) is a type of antihistamine that blocks the release of stomach acid. It is used to treat stomach or intestinal ulcers. It can relieve ulcer pain and discomfort, and the heartburn from acid reflux. How should I use this medicine? Take this medicine by mouth with a glass of water. Follow the directions on the prescription label. If you only take this medicine once a day, take it at bedtime. Take your medicine at regular intervals. Do not take your medicine more often than directed. Do not stop taking except on your doctor's advice. Talk to your deputy director regarding the use of this medicine in children. Special care may be needed. What side effects may I notice from receiving this medicine? Side effects that you should report to your doctor or health career orientation teacher as soon as possible: agitation, nervousness, depression, hallucinations allergic reactions like skin rash, itching or hives, swelling of the face, lips, or tongue breast enlargement in both males and females breathing problems redness, blistering, peeling or loosening of the skin, including inside the mouth unusual bleeding or bruising unusually weak or tired vomiting yellowing of the skin or eyes Side effects that usually do not require medical attention (report to your doctor or health career orientation teacher if they continue or are bothersome): constipation or diarrhea dizziness headache nausea What may interact with this medicine? atazanavir delavirdine gefitinib glipizide ketoconazole midazolam procainamide propantheline triazolam warfarin What if I miss a dose? If you miss a dose, take it as soon as you can. If it is almost time for your next dose, take only that dose. Do not take double or extra doses. Where should I keep my medicine? Keep out of the reach of children. Store at room temperature between 15 and 30 degrees C (59 and 86 degrees F). Protect from light and moisture. Keep container tightly closed. Throw away any unused medicine after the expiration date. What should I tell my health care provider before I take this medicine? They need to know if you have any of these conditions: kidney disease liver disease porphyria an unusual or allergic reaction to ranitidine, other medicines, foods, dyes, or preservatives or trying to get breast-feeding What should I watch for while using this medicine? Tell your doctor or health career orientation teacher if your condition does not start to get better or gets worse. You may need to take this medicine for several days as prescribed before your symptoms get better. Finish the full course of tablets prescribed, even if you feel better. Do not smoke cigarettes or drink alcohol. These increase irritation in your stomach and can lengthen the time it will take for ulcers to heal. Cigarettes and alcohol can also make acid reflux or heartburn worse. If you get black, tarry stools or vomit up what looks like coffee grounds, call your doctor or health career orientation teacher at once. You may have a bleeding ulcer. You have been given the following additional information: GERD (Adult) Ranitidine Hydrochloride Oral tablet (Electronically signed by Nicholas Ribeiro Dr. 05/05/2016 17:44)
--- NOTE | 2016-05-05 22:45 | ED MED RECONCILIATION SUMMARY ---
Patient: MICHELLE JAY Medication Reconciliation Report [facility] VisitID: [id number] [address] [place] [address] 50y, F Registration Date/Time: 05/05/2016 Weight: 81.6 kg Height/Length: 65 in. BMI: 30.0 ALLERGIES: Adhesive Tape, No Known Drug Allergy The patient's Home Medications are listed below: THE FOLLOWING MEDICATIONS NEED TO BE RECONCILED: Atenolol Oral The source(s) of the original Home Medication information: Not obtained. The following Medications were given to the patient in the Emergency Department: None. The following Medications were prescribed to the patient: Zantac 150 mg: take 1 orally every 12 hours. Dispense sixty (60). No refills. Substitution is permissible. -- Nicholas Ribeiro Dr.
== END 2016-05-05 18:10 | disposition home or self-care (01) ==
LOC: ED SRH 15:20
DX: K21.0 Gastro-esophageal reflux disease with esophagitis (principal); I10 Essential (primary) hypertension; Z91.048 Other nonmedicinal substance allergy status
CPT/HCPCS: 90004; 90100; 93140; 95059; 98370

== ENCOUNTER 2016-05-25 19:56 | Emergency (ER) | payer OTHER ==
--- NOTE | 2016-05-25 23:42 | ED ORDER SUMMARY ---
..... Patient: MICHELLE JAY OrderSheet [facility] VisitID: [id number] [address] [place] [place] [address] 50y, F Registration Date/Time: 05/25/2016 ORDER SHEET Weight: 83.4 kg (stated) Allergies: Adhesive Tape, No Known Drug Allergy GENERAL ORDERS: US Venous Right Urgent (22:20 05/25/2016 Deandra LANZA) ([facility] 22[facility] (23:52 Fauzia) MEDICATION ORDERS: IV FLUIDS: ORDER SHEET NOTES: [Electronically signed by Yao Hsieh R.N. (23:59 05/25/2016)] [Electronically signed by Jay Cunningham MD (10:35 05/27/2016)] [Electronically locked/signed by Yao Hsieh R.N. (23:59 05/25/2016)]
--- NOTE | 2016-05-25 23:42 | ED NURSING NOTES ---
Clinical Report - Nurses [facility] [address] [place] [address] 05/25/2016 19:57 Patient: MICHELLE JAY TRIAGE Triage time 2004. Acuity: LEVEL 4. Chief Complaint: RIGHT LOWER EXTREMITY PAIN. Location of symptoms- (right calf pain x 2 days, pt worried about a DVT, states she has "3 clotting factor problems" --has not had a DVT before). --20:15 Kiki Yen R.N. 20:05 05/25/16. BP: 134/78. HR: 60. RR: 18. O2 saturation: 100%. Temp: 98.2 F. Pain level now: 07/24. --20:15 Kiki Yen R.N. Weight: 83.4 kg stated. Height/Length: 65.5 inches Per Patient. BMI: 30.2. --20:14 Kiki Yen R.N. Medications Atenolol Oral. --20:12 Kiki Yen R.N. Allergies Adhesive Tape. --20:12 Kiki Yen R.N. No Known Drug Allergy. --20:12 Kiki Yen R.N. History Arrived by private vehicle. Historian: patient. Unaccompanied. Primary physician (heidi). This occurred (2 days ago- after taking a nap). PAST MEDICAL HX: The patient is post-menopausal. SOCIAL HX: Never smoker. No alcohol use or drug use. --20:15 Kiki Yen R.N. PROBLEMS: Gastroesophageal Reflux Disease. Dyspnea. Prothrombin gene mutation. Protein C deficiency. Factor V Leiden mutation. Pulmonary Nodule. Chest Pain. Reflux. Chest Wall Pain. Arrhythmia. Gastroenteritis. Hypertension. --20:13 Kiki Yen R.N. ADDITIONAL SURGERIES: Cholecystectomy. . Ectopic . --20:13 Kiki Yen R.N. Interventions ID band on patient. To treatment room. --20:15 Kiki Yen R.N. DISPOSITION / DISCHARGE Departure time: 2353. Condition at departure: unchanged. No learning barriers present. Discharge instructions provided and reviewed with the patient. Reviewed medication(s) information. Patient verbalized understanding. Written instructions provided in Moldovan. The patient was discharged by the physician. She was discharged home. She left the Emergency Department ambulatory and via private vehicle. Patient driving. --23:58 Yao Hsieh R.N. 23:57 05/25/16. HR: 80. RR: 18. O2 saturation: 98%. --23:58 Yao Hsieh R.N. Locked/Released at 05/25/2016 23:59 by Yao Hsieh R.N.
--- NOTE | 2016-05-25 23:42 | ED NURSING NOTES ---
Clinical Report - Nurses [facility] [address] [place] [address] 05/25/2016 19:57 Patient: MICHELLE JAY TRIAGE Triage time 2004. Acuity: LEVEL 4. Chief Complaint: RIGHT LOWER EXTREMITY PAIN. Location of symptoms- (right calf pain x 2 days, pt worried about a DVT, states she has "3 clotting factor problems" --has not had a DVT before). --20:15 Kiki Yen R.N. 20:05 05/25/16. BP: 134/78. HR: 60. RR: 18. O2 saturation: 100%. Temp: 98.2 F. Pain level now: 07/24. --20:15 Kiki Yen R.N. Weight: 83.4 kg stated. Height/Length: 65.5 inches Per Patient. BMI: 30.2. --20:14 Kiki Yen R.N. Medications Atenolol Oral. --20:12 Kiki Yen R.N. Allergies Adhesive Tape. --20:12 Kiki Yen R.N. No Known Drug Allergy. --20:12 Kiki Yen R.N. History Arrived by private vehicle. Historian: patient. Unaccompanied. Primary physician (heidi). This occurred (2 days ago- after taking a nap). PAST MEDICAL HX: The patient is post-menopausal. SOCIAL HX: Never smoker. No alcohol use or drug use. --20:15 Kiki Yen R.N. PROBLEMS: Gastroesophageal Reflux Disease. Dyspnea. Prothrombin gene mutation. Protein C deficiency. Factor V Leiden mutation. Pulmonary Nodule. Chest Pain. Reflux. Chest Wall Pain. Arrhythmia. Gastroenteritis. Hypertension. --20:13 Kiki Yen R.N. ADDITIONAL SURGERIES: Cholecystectomy. . Ectopic . --20:13 Kiki Yen R.N. Interventions ID band on patient. To treatment room. --20:15 Kiki Yen R.N. DISPOSITION / DISCHARGE Departure time: 2353. Condition at departure: unchanged. No learning barriers present. Discharge instructions provided and reviewed with the patient. Reviewed medication(s) information. Patient verbalized understanding. Written instructions provided in German. The patient was discharged by the physician. She was discharged home. She left the Emergency Department ambulatory and via private vehicle. Patient driving. --23:58 Yao Hsieh R.N. 23:57 05/25/16. HR: 80. RR: 18. O2 saturation: 98%. --23:58 Yao Hsieh R.N. Locked/Released at 05/25/2016 23:59 by Yao Hsieh R.N.
--- NOTE | 2016-05-25 23:42 | ED CLINICAL REPORT ---
Clinical Report - Physicians/Mid Levels [facility] [address] [place] [address] 05/25/2016 19:57 [id number] Time Seen: 22:21 May 25 2016. Arrived- By private vehicle. Historian- patient. CPT: ER phys charges level 3 (#[id number]). HISTORY OF PRESENT ILLNESS Chief Complaint: LOWER EXTREMITY PAIN. The quality is noted to be aching and "pain". 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 Symptoms located in the area of the right leg. The patient has not had redness. No swelling. She has had difficulty walking. Patient notes the possibility of an injury. Similar symptoms previously: None. Recent medical care: Not recently seen/assessed. REVIEW OF SYSTEMS No cough, chest pain, difficulty breathing, fever or skin rash. No enlarged lymph nodes, sore throat, abdominal pain, vomiting or diarrhea. All systems otherwise negative, except as recorded above. PAST HISTORY ( hx of 2 clotting disorders. Gastroesophageal Reflux Disease. Dyspnea. Prothrombin gene mutation. Protein C deficiency. Factor V Leiden mutation. Pulmonary Nodule. Chest Pain. Reflux. Chest Wall Pain. Arrhythmia. Gastroenteritis. Hypertension. --20:13 Kiki Yen R.N. ADDITIONAL SURGERIES: Cholecystectomy. . Ectopic .). Medications: Atenolol Oral. Allergies: Adhesive Tape. No Known Drug Allergy. SOCIAL HISTORY Never smoker. No alcohol use or drug use. ADDITIONAL NOTES The nursing notes have been reviewed. PHYSICAL EXAM Vital Signs: 05/25/2016 20:05 BP: 134/78. HR: 60. RR: 18. O2 saturation: 100%. Temp: 98.2 F. Pain level now: 4/10. Appearance: Alert. Patient in mild distress. Eyes: Eyes normal inspection. ENT: Pharynx normal. CVS: Normal heart rate and rhythm. Heart sounds normal. Respiratory: No respiratory distress. Breath sounds normal. Abdomen: Soft and nontender. Back: No tenderness. Skin: Skin intact. Skin warm. Normal skin color. Extremities: Right leg: moderate tenderness located in the mid leg. Limited weight bearing secondary to pain. Neurovascular intact distally. No swelling, laceration or ecchymosis. Extremities otherwise negative. Neuro, Vascular and Tendons: No pulse deficit present. Neuro: Oriented X 3. No motor deficit. No sensory deficit. Reflexes normal. LABS, X-RAYS, AND EKG Lower Extremity Sonography: Negative study. PROGRESS AND PROCEDURES Patient/family counseled. Disposition: Discharged. Condition: stable. CLINICAL IMPRESSION Right calf strain due to plantar fasciitis and guarding. INSTRUCTIONS Apply moist heat for 15-20 minutes three times a day for five days until better. Warnings: Further evaluation is necessary. GENERAL WARNINGS: Return or contact your physician immediately if your condition worsens or changes unexpectedly, if not improving as expected, or if other problems arise. Your Current Medications: CONTINUE TAKING THE FOLLOWING MEDICATIONS: Atenolol Oral. OTC Medications: Motrin (available over the counter): take according to label instructions. Follow-up: Follow up with a casino beverage server. Call for the next available appointment. Understanding of the discharge instructions verbalized by patient. (Electronically signed by Jay Cunningham MD 05/27/2016 10:35)
--- NOTE | 2016-05-25 23:42 | ED CLINICAL REPORT ---
Clinical Report - Physicians/Mid Levels [facility] [address] [place] [address] 05/25/2016 19:57 [id number] Time Seen: 22:21 May 25 2016. Arrived- By private vehicle. Historian- patient. CPT: ER phys charges level 3 (#[id number]). HISTORY OF PRESENT ILLNESS Chief Complaint: LOWER EXTREMITY PAIN. The quality is noted to be aching and "pain". 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 Symptoms located in the area of the right leg. The patient has not had redness. No swelling. She has had difficulty walking. Patient notes the possibility of an injury. Similar symptoms previously: None. Recent medical care: Not recently seen/assessed. REVIEW OF SYSTEMS No cough, chest pain, difficulty breathing, fever or skin rash. No enlarged lymph nodes, sore throat, abdominal pain, vomiting or diarrhea. All systems otherwise negative, except as recorded above. PAST HISTORY ( hx of 2 clotting disorders. Gastroesophageal Reflux Disease. Dyspnea. Prothrombin gene mutation. Protein C deficiency. Factor V Leiden mutation. Pulmonary Nodule. Chest Pain. Reflux. Chest Wall Pain. Arrhythmia. Gastroenteritis. Hypertension. --20:13 Kiki Yen R.N. ADDITIONAL SURGERIES: Cholecystectomy. . Ectopic .). Medications: Atenolol Oral. Allergies: Adhesive Tape. No Known Drug Allergy. SOCIAL HISTORY Never smoker. No alcohol use or drug use. ADDITIONAL NOTES The nursing notes have been reviewed. PHYSICAL EXAM Vital Signs: 05/25/2016 20:05 BP: 134/78. HR: 60. RR: 18. O2 saturation: 100%. Temp: 98.2 F. Pain level now: 4/10. Appearance: Alert. Patient in mild distress. Eyes: Eyes normal inspection. ENT: Pharynx normal. CVS: Normal heart rate and rhythm. Heart sounds normal. Respiratory: No respiratory distress. Breath sounds normal. Abdomen: Soft and nontender. Back: No tenderness. Skin: Skin intact. Skin warm. Normal skin color. Extremities: Right leg: moderate tenderness located in the mid leg. Limited weight bearing secondary to pain. Neurovascular intact distally. No swelling, laceration or ecchymosis. Extremities otherwise negative. Neuro, Vascular and Tendons: No pulse deficit present. Neuro: Oriented X 3. No motor deficit. No sensory deficit. Reflexes normal. LABS, X-RAYS, AND EKG Lower Extremity Sonography: Negative study. PROGRESS AND PROCEDURES Patient/family counseled. Disposition: Discharged. Condition: stable. CLINICAL IMPRESSION Right calf strain due to plantar fasciitis and guarding. INSTRUCTIONS Apply moist heat for 15-20 minutes three times a day for five days until better. Warnings: Further evaluation is necessary. GENERAL WARNINGS: Return or contact your physician immediately if your condition worsens or changes unexpectedly, if not improving as expected, or if other problems arise. Your Current Medications: CONTINUE TAKING THE FOLLOWING MEDICATIONS: Atenolol Oral. OTC Medications: Motrin (available over the counter): take according to label instructions. Follow-up: Follow up with a line fixer. Call for the next available appointment. Understanding of the discharge instructions verbalized by patient. (Electronically signed by Jay Cunningham MD 05/27/2016 10:35)
--- NOTE | 2016-05-25 23:42 | ED ORDER SUMMARY ---
..... Patient: MICHELLE JAY OrderSheet [facility] VisitID: [id number] [address] [place] [place] [address] 50y, F Registration Date/Time: 05/25/2016 ORDER SHEET Weight: 83.4 kg (stated) Allergies: Adhesive Tape, No Known Drug Allergy GENERAL ORDERS: US Venous Right Urgent (22:20 05/25/2016 Deandra LANZA) ([facility] (23:52 Fauzia) MEDICATION ORDERS: IV FLUIDS: ORDER SHEET NOTES: [Electronically signed by Yao Hsieh R.N. (23:59 05/25/2016)] [Electronically signed by Jay Cunningham MD (10:35 05/27/2016)] [Electronically locked/signed by Yao Hsieh R.N. (23:59 05/25/2016)]
--- NOTE | 2016-05-26 00:17 | DIAGNOSTIC IMAGING REPORT ---
PROCEDURE: US VENOUS - RIGHT EXT INDICATION: Right lower extremity swelling and pain, initial encounter TECHNIQUE: Duplex sonography of the deep venous system in the right lower extremity was performed. Compression and augmentation techniques were used. COMPARISON: None. FINDINGS: Normal compression of the greater saphenous, common femoral, superficial femoral, popliteal, peroneal, and posterior tibial veins. Normal augmentation. There is no evidence of superficial or deep venous thrombosis. IMPRESSION: 1. Negative venous ultrasound of the right lower extremity.
--- NOTE | 2016-05-27 10:35 | ED MAR SUMMARY ---
..... Medication Administration Record [facility] [address], [place] [id number] Patient: MICHELLE JAY Visit ID: [id number] 50y, F Weight: 83.4 kg Height/Length: 65.5 in BMI: 30.2 ALLERGIES: No Known Drug Allergy, Adhesive Tape
--- NOTE | 2016-05-27 10:35 | ED MED RECONCILIATION SUMMARY ---
Patient: MICHELLE JAY Medication Reconciliation Report [facility] VisitID: [id number] [address] [place] [address] 50y, F Registration Date/Time: 05/25/2016 Weight: 83.4 kg Height/Length: (not available) BMI: 30.2 ALLERGIES: Adhesive Tape, No Known Drug Allergy The patient's Home Medications are listed below: CONTINUE TAKING THE FOLLOWING MEDICATIONS: Atenolol Oral The source(s) of the original Home Medication information: Not obtained. The following Medications were given to the patient in the Emergency Department: None. The following Medications were prescribed to the patient: Motrin (available over the counter): take according to label instructions. -- Jay Cunningham MD
--- NOTE | 2016-05-27 10:35 | ED DISCHARGE INSTRUCTIONS ---
Patient: MICHELLE JAY General Instructions [facility] VisitID: [id number] [address] [place] [address] 50y, F Registration Date/Time: 05/25/2016 Right calf strain due to plantar fasciitis and guarding. INSTRUCTIONS Apply moist heat for 15-20 minutes three times a day for five days until better. Warnings: Further evaluation is necessary. GENERAL WARNINGS: Return or contact your physician immediately if your condition worsens or changes unexpectedly, if not improving as expected, or if other problems arise. Your Current Medications: CONTINUE TAKING THE FOLLOWING MEDICATIONS: Atenolol Oral. OTC Medications: Motrin (available over the counter): take according to label instructions. Follow-up: Follow up with a endband cutter hand. Call for the next available appointment. Understanding of the discharge instructions verbalized by patient. (Electronically signed by Jay Cunningham MD 05/27/2016 10:35)
--- NOTE | 2016-05-27 10:35 | ED MED RECONCILIATION SUMMARY ---
Patient: MICHELLE JAY Medication Reconciliation Report [facility] VisitID: [id number] [address] [place] [address] 50y, F Registration Date/Time: 05/25/2016 Weight: 83.4 kg Height/Length: (not available) BMI: 30.2 ALLERGIES: Adhesive Tape, No Known Drug Allergy The patient's Home Medications are listed below: CONTINUE TAKING THE FOLLOWING MEDICATIONS: Atenolol Oral The source(s) of the original Home Medication information: Not obtained. The following Medications were given to the patient in the Emergency Department: None. The following Medications were prescribed to the patient: Motrin (available over the counter): take according to label instructions. -- Jay Cunningham MD
--- NOTE | 2016-05-27 10:35 | ED DISCHARGE INSTRUCTIONS ---
Patient: MICHELLE JAY General Instructions [facility] VisitID: [id number] [address] [place] [address] 50y, F Registration Date/Time: 05/25/2016 Right calf strain due to plantar fasciitis and guarding. INSTRUCTIONS Apply moist heat for 15-20 minutes three times a day for five days until better. Warnings: Further evaluation is necessary. GENERAL WARNINGS: Return or contact your physician immediately if your condition worsens or changes unexpectedly, if not improving as expected, or if other problems arise. Your Current Medications: CONTINUE TAKING THE FOLLOWING MEDICATIONS: Atenolol Oral. OTC Medications: Motrin (available over the counter): take according to label instructions. Follow-up: Follow up with a group counselor. Call for the next available appointment. Understanding of the discharge instructions verbalized by patient. (Electronically signed by Jay Cunningham MD 05/27/2016 10:35)
--- NOTE | 2016-05-27 10:35 | ED MAR SUMMARY ---
..... Medication Administration Record [facility] [address], [place] [id number] Patient: MICHELLE JAY Visit ID: [id number] 50y, F Weight: 83.4 kg Height/Length: 65.5 in BMI: 30.2 ALLERGIES: No Known Drug Allergy, Adhesive Tape
== END 2016-05-25 23:54 | disposition home or self-care (01) ==
LOC: ED SRH 19:56
DX: S86.111A Strain of other muscle(s) and tendon(s) of posterior muscle group at lower leg level, right leg, initial encounter (principal); X58.XXXA Exposure to other specified factors, initial encounter; Y92.9 Unspecified place or not applicable; Y99.9 Unspecified external cause status; M72.2 Plantar fascial fibromatosis; D68.51 Activated protein C resistance; I10 Essential (primary) hypertension; K21.9 Gastro-esophageal reflux disease without esophagitis; Z79.899 Other long term (current) drug therapy

== ENCOUNTER 2016-05-31 09:00 | Emergency (ER) | payer OTHER ==
--- NOTE | 2016-05-31 09:34 | DIAGNOSTIC IMAGING REPORT ---
PROCEDURE: XR CHEST 1 VIEW INDICATION: CHEST PAIN, initial encounter TECHNIQUE: Portable AP view 09:19 a.m. COMPARISON: Chest x-ray 04/20/2016 FINDINGS: Lungs are clear. Mild cardiomegaly. Mediastinum and pulmonary vessels are normal. Thorax is normal. IMPRESSION: 1. Mild cardiomegaly
--- NOTE | 2016-05-31 10:29 | DIAGNOSTIC IMAGING REPORT ---
PROCEDURE: US VENOUS - RIGHT EXT INDICATION: PAIN TECHNIQUE: Duplex sonography of the deep venous system in the right lower extremity was performed. Compression and augmentation techniques were used. COMPARISON: Ultrasound 05/25/2016 FINDINGS: Each interrogated segment of deep vein from the common femoral vein into the calf veins demonstrates normal compressibility, augmentation and/or color Doppler flow without filling defect. No evidence of significant soft-tissue edema, soft-tissue mass or cyst. IMPRESSION: 1. No deep venous thrombosis in the right lower extremity.
--- NOTE | 2016-05-31 15:57 | ED NURSING NOTES ---
Clinical Report - Nurses [facility] [address] [place] [address] 05/31/2016 9:00 Patient: MICHELLE JAY TRIAGE Triage time 09:04. Acuity: LEVEL 3. Chief Complaint: CHEST PAIN. 09:04 05/31/16. 09:04 05/31/16. Alert. No acute distress. SEPSIS SCREEN: Sepsis Screen. Negative (no infection suspected/documented). --09:09 Hair Hernandez R.N. 09:04 05/31/16. BP: 122/63. HR: 58. RR: 18. O2 saturation: 100% on room air. Temp: 97.8 F (oral). Pain level now: 310. --09:09 Hair Hernandez R.N. ( Chest pain that started yesterday with rapid heart rate and palpations). --09:12 Hair Hernandez R.N. Weight: 81.6 kg stated. Height/Length: 65 inches Per Patient. BMI: 30. --09:04 Hair Hernandez R.N. Medications Atenolol Oral 100 mg, daily. --09:06 Hair Hernandez R.N. Medication/allergy information source: the patient. --09:09 Hair Hernandez R.N. Allergies Adhesive Tape. --09:06 Hair Hernandez R.N. History Arrived by private vehicle. Historian: patient. Primary physician (WILFRED NUNES). 09:04 05/31/16. This started yesterday. No nausea. 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 PAST MEDICAL HX: The patient is post-menopausal. Immunizations not up to date. SOCIAL HX: Never smoker. No alcohol use or drug use. No infectious disease exposure. ABUSE ASSESSMENT: No report of abuse. FALL RISK ASSESSMENT: Fall risk assessment completed. No fall risk identified. NUTRITIONAL RISK ASSESSMENT: The nutritional risk assessment revealed no deficiencies. FUNCTIONAL ASSESSMENT: Functional assessment: no impairments noted. LEARNING NEEDS ASSESSMENT: The learning needs assessment revealed no barriers. SKIN INTEGRITY ASSESSMENT: Skin integrity risk assessment completed. No skin integrity risk identified. --09:09 Hair Hernandez R.N. PROBLEMS: Gastroesophageal Reflux Disease. Dyspnea. Prothrombin gene mutation. Protein C deficiency. Factor V Leiden mutation. Pulmonary Nodule. Chest Pain. Reflux. Diarrhea. Chest Wall Pain. Arrhythmia. Immunizations. Palpitations. Gastroenteritis. Hypertension. --09:07 Hair Hernandez R.N. ADDITIONAL SURGERIES: Cholecystectomy. . Ectopic . --09:07 Hair Hernandez R.N. Assessment 09:04 05/31/16. --09:09 Hair Hernandez R.N. Interventions 09:05/31/16. 09:05/31/16. ID and allergy band on patient. To treatment room. --09:09 Hair Hernandez R.N. PHYSICAL ASSESSMENT 09:05/31/16. Ambulatory to room. GENERAL / NEURO / PSYCH: Alert. Oriented X 4. Appears in no acute distress. RESPIRATORY: Respirations not labored. CVS: Pulses within normal limits. SKIN: Skin is warm and dry. --09:07 Hair Hernandez R.N. NURSING PROGRESS NOTES The plan of care for this patient has been created. pvc monitor, pulse oximeter and NIBP monitor placed on patient; monitor alarms on. Patient gowned. Head of bed elevated. Two patient identifiers checked. Call light placed in reach. Side rails up x 2. Bed placed in lowest position. Brakes of bed on. Brakes of chair on. --09:08 Hair Hernandez R.N. 09:08 05/31/16. Patient ready for evaluation- chart flagged and notification provided. --09:08 Hair Hernandez R.N. 09:14 05/31/2016 Aspirin PO 325 mg given. Allergies verified and confirmed 5 rights. --09:14 Hair Hernandez R.N. 09:18 05/31/16. EKG time: (0918 AM). EKG was ordered, performed by a tech and shown to the ED physician. --09:18 Hair Hernandez R.N. 09:39 05/31/2016 Site #1 started via IV in the right hand with an 22g angiocath, with aseptic technique and good blood return; two attempts. Blood drawn: rainbow set. Labeled in the presence of the patient and sent to the lab. Saline lock flushed with 10 mL saline. --09:39 Hair Hernandez R.N. 10:04 05/31/16. ( US here). --10:04 Hair Hernandez R.N. 11:04 05/31/16. ( Lab redraw). --11:04 Hair Hernandez R.N. 12:32 05/31/16. Cardiac rhythm: sinus bradycardia. --12:32 Hair Hernandez R.N. 12:32 05/31/16. BP: 118/70. HR: 56. RR: 12. O2 saturation: 100% on room air. --12:32 Hair Hernandez R.N. 13:30 05/31/16. Cardiac rhythm: sinus bradycardia. --13:30 Hair Hernandez R.N. 13:28 05/31/16. BP: 113/78. HR: 57. RR: 14. O2 saturation: 99%. --13:30 Hair Hernandez R.N. 13:48 05/31/16. Patient and family informed about reason for wait and about plan of care. --13:48 Hair Hernandez R.N. 13:48 05/31/16. Patient waiting for disposition. --13:48 Hair Hernandez R.N. ( called Dr. Castañeda - cardiology. [phone]). --14:21 Gely Deal, Tech1 14:43 05/31/16. Patient informed about reason for wait and about plan of care (Cardiology to call back for consult). --14:43 Hair Hernandez R.N. 14:43 05/31/16. Cardiac rhythm: normal sinus rhythm. --14:43 Hair Hernandez R.N. 14:43 05/31/16. BP: 119/81. HR: 68. RR: 12. O2 saturation: 98% on room air. --14:43 Hair Hernandez R.N. 15:12 05/31/16. Patient informed about reason for wait and about plan of care (Transfer). --15:12 Hair Hernandez R.N. ( face sheet faxed to Prov. Rad. sent x-ray to Prov.). --15:26 Gely Deal, ER Tech1. DISPOSITION / DISCHARGE 15:12 05/31/16. Patient's personal items include, all given to patient on transfer, purse, glasses, pants. --15:12 Hair Hernandez R.N. 15:49 05/31/2016 Site #[address] upon transfer; patent. Good blood return present; flushes easily. --15:49 Hair Hernandez R.N. 15:50 05/31/16. The goals identified in the patient's plan of care were met. Transported via ambulance. Bed obtained. FALL RISK ASSESSMENT: Fall risk assessment completed. No fall risk identified. --15:50 Hair Hernandez R.N. 15:49 05/31/16. BP: 114/72. HR: 72. RR: 14. O2 saturation: 100% on room air. Temp: 98.1 F (oral). --15:50 Hair Hernandez R.N. 16:16 05/31/16. Report was given to a nurse. Report included patient's care, treatment, medications, reviewed medication reconcilliation, and condition (including any recent changes or anticipated changes). All questions were answered. Care was transferred. ( Ambulance RN). --16:16 Hair Hernandez R.N. 16:18 05/31/16. Departure time: 16:18. --16:18 Hair Hernandez R.N. 16:30 05/31/16. Report was given to a nurse via a phone call. Report included patient's care, treatment, medications, reviewed medication reconcilliation, and condition (including any recent changes or anticipated changes). All questions were answered. Report was acknowledged and care was transferred. (Suzy RN). --16:30 Hair Hernandez R.N. Locked/Released at 05/31/2016 17:45 by Hair Hernandez R.N.
--- NOTE | 2016-05-31 15:57 | ED ORDER SUMMARY ---
..... Patient: MICHELLE JAY OrderSheet [facility] VisitID: [id number] [address] [place] [address] 50y, F Registration Date/Time: 05/31/2016 ORDER SHEET Weight: 81.6 kg (stated) Allergies: Adhesive Tape GENERAL ORDERS: Chest 1V Urgent (09:05/31/2016 JBoardley R.N. per protocol) (Ack 9:15 LNations ER Tech1) (9:18 JBoardley R.N.) Hospitality Manager (Continuous) (09:05/31/2016 JBoardley R.N. per protocol) (9:13 JBoardley R.N.) (Ack 9:14 LNations ER Tech1) Cardiac Panel Stat (:05/31/2016 JBoardley R.N. per protocol) (Ack 9:15 LNations ER Tech1) (9:39 JBoardley R.N.) Oxygen (2 L/min) (NC) (09:13 05/31/2016 JBoardley R.N. per protocol) (9:13 JBoardley R.N.) (Ack 9:14 LNations ER Tech1) Pulse oximeter (09:05/31/2016 JBoardley R.N. per protocol) (9:13 JBoardley R.N.) (Ack 9:15 LNations ER Tech1) EKG - ER Stat (09:05/31/2016 JBoardley R.N. per protocol) (Ack 9:15 LNations ER Tech1) (9:17 JBoardley R.N.) US Venous Right Urgent (09:45 05/31/2016 Deandra LANZA) (Ack 9:47 LNations ER Tech1) (10:37 JBoardley R.N.) D-Dimer Urgent (09:45 05/31/2016 Deandra LANZA) (Ack 9:47 LNations ER Tech1) (11:04 JBoardley R.N.) MEDICATION ORDERS: Aspirin PO 325 mg (Do not crush or chew, NOW) (09:05/31/2016 JBoardley R.N. per protocol) (9:14 JBoardley R.N.) IV FLUIDS: IV Saline Lock (09:13 05/31/2016 JBoardley R.N. per protocol) (Ack 9:13 JBoardley R.N.) (9:39 JBoardley R.N.) ORDER SHEET NOTES: [Electronically signed by Hair Hernandez R.N. (17:45 05/31/2016)] [Electronically signed by Jay Cunningham MD (15:51 06/01/2016)] [Electronically locked/signed by Hair Hernandez R.N. (17:45 05/31/2016)]
--- NOTE | 2016-05-31 15:57 | ED ORDER SUMMARY ---
..... Patient: MICHELLE JAY OrderSheet [facility] VisitID: [id number] [address] [place] [address] 50y, F Registration Date/Time: 05/31/2016 ORDER SHEET Weight: 81.6 kg (stated) Allergies: Adhesive Tape GENERAL ORDERS: Chest 1V Urgent (09:05/31/2016 JBoardley R.N. per protocol) (Ack 9:15 LNations ER Tech1) (9:18 JBoardley R.N.) Analysis Intern (Continuous) (09:05/31/2016 JBoardley R.N. per protocol) (9:13 JBoardley R.N.) (Ack 9:14 LNations ER Tech1) Cardiac Panel Stat (:05/31/2016 JBoardley R.N. per protocol) (Ack 9:15 LNations ER Tech1) (9:39 JBoardley R.N.) Oxygen (2 L/min) (NC) (09:13 05/31/2016 JBoardley R.N. per protocol) (9:13 JBoardley R.N.) (Ack 9:14 LNations ER Tech1) Pulse oximeter (09:05/31/2016 JBoardley R.N. per protocol) (9:13 JBoardley R.N.) (Ack 9:15 LNations ER Tech1) EKG - ER Stat (09:05/31/2016 JBoardley R.N. per protocol) (Ack 9:15 LNations ER Tech1) (9:17 JBoardley R.N.) US Venous Right Urgent (09:45 05/31/2016 Deandra LANZA) (Ack 9:47 LNations ER Tech1) (10:37 JBoardley R.N.) D-Dimer Urgent (09:45 05/31/2016 Deandra LANZA) (Ack 9:47 LNations ER Tech1) (11:04 JBoardley R.N.) MEDICATION ORDERS: Aspirin PO 325 mg (Do not crush or chew, NOW) (09:05/31/2016 JBoardley R.N. per protocol) (9:14 JBoardley R.N.) IV FLUIDS: IV Saline Lock (09:13 05/31/2016 JBoardley R.N. per protocol) (Ack 9:13 JBoardley R.N.) (9:39 JBoardley R.N.) ORDER SHEET NOTES: [Electronically signed by Hair Hernandez R.N. (17:45 05/31/2016)] [Electronically signed by Jay Cunningham MD (15:51 06/01/2016)] [Electronically locked/signed by Hair Hernandez R.N. (17:45 05/31/2016)]
--- NOTE | 2016-05-31 15:57 | ED NURSING NOTES ---
Clinical Report - Nurses [facility] [address] [place] [address] 05/31/2016 9:00 Patient: MICHELLE JAY TRIAGE Triage time 09:04. Acuity: LEVEL 3. Chief Complaint: CHEST PAIN. 09:04 05/31/16. 09:04 05/31/16. Alert. No acute distress. SEPSIS SCREEN: Sepsis Screen. Negative (no infection suspected/documented). --09:09 Hair Hernandez R.N. 09:04 05/31/16. BP: 122/63. HR: 58. RR: 18. O2 saturation: 100% on room air. Temp: 97.8 F (oral). Pain level now: 310. --09:09 Hair Hernandez R.N. ( Chest pain that started yesterday with rapid heart rate and palpations). --09:12 Hair Hernandez R.N. Weight: 81.6 kg stated. Height/Length: 65 inches Per Patient. BMI: 30. --09:04 Hair Hernandez R.N. Medications Atenolol Oral 100 mg, daily. --09:06 Hair Hernandez R.N. Medication/allergy information source: the patient. --09:09 Hair Hernandez R.N. Allergies Adhesive Tape. --09:06 Hair Hernandez R.N. History Arrived by private vehicle. Historian: patient. Primary physician (WILFRED NUNES). 09:04 05/31/16. This started yesterday. No nausea. 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 PAST MEDICAL HX: The patient is post-menopausal. Immunizations not up to date. SOCIAL HX: Never smoker. No alcohol use or drug use. No infectious disease exposure. ABUSE ASSESSMENT: No report of abuse. FALL RISK ASSESSMENT: Fall risk assessment completed. No fall risk identified. NUTRITIONAL RISK ASSESSMENT: The nutritional risk assessment revealed no deficiencies. FUNCTIONAL ASSESSMENT: Functional assessment: no impairments noted. LEARNING NEEDS ASSESSMENT: The learning needs assessment revealed no barriers. SKIN INTEGRITY ASSESSMENT: Skin integrity risk assessment completed. No skin integrity risk identified. --09:09 Hair Hernandez R.N. PROBLEMS: Gastroesophageal Reflux Disease. Dyspnea. Prothrombin gene mutation. Protein C deficiency. Factor V Leiden mutation. Pulmonary Nodule. Chest Pain. Reflux. Diarrhea. Chest Wall Pain. Arrhythmia. Immunizations. Palpitations. Gastroenteritis. Hypertension. --09:07 Hair Hernandez R.N. ADDITIONAL SURGERIES: Cholecystectomy. . Ectopic . --09:07 Hair Hernandez R.N. Assessment 09:04 05/31/16. --09:09 Hair Hernandez R.N. Interventions 09:05/31/16. 09:05/31/16. ID and allergy band on patient. To treatment room. --09:09 Hair Hernandez R.N. PHYSICAL ASSESSMENT 09:05/31/16. Ambulatory to room. GENERAL / NEURO / PSYCH: Alert. Oriented X 4. Appears in no acute distress. RESPIRATORY: Respirations not labored. CVS: Pulses within normal limits. SKIN: Skin is warm and dry. --09:07 Hair Hernandez R.N. NURSING PROGRESS NOTES The plan of care for this patient has been created. monitoring engineer, pulse oximeter and NIBP monitor placed on patient; monitor alarms on. Patient gowned. Head of bed elevated. Two patient identifiers checked. Call light placed in reach. Side rails up x 2. Bed placed in lowest position. Brakes of bed on. Brakes of chair on. --09:08 Hair Hernandez R.N. 09:08 05/31/16. Patient ready for evaluation- chart flagged and notification provided. --09:08 Hair Hernandez R.N. 09:14 05/31/2016 Aspirin PO 325 mg given. Allergies verified and confirmed 5 rights. --09:14 Hair Hernandez R.N. 09:18 05/31/16. EKG time: (0918 AM). EKG was ordered, performed by a tech and shown to the ED physician. --09:18 Hair Hernandez R.N. 09:39 05/31/2016 Site #1 started via IV in the right hand with an 22g angiocath, with aseptic technique and good blood return; two attempts. Blood drawn: rainbow set. Labeled in the presence of the patient and sent to the lab. Saline lock flushed with 10 mL saline. --09:39 Hair Hernandez R.N. 10:04 05/31/16. ( US here). --10:04 Hair Hernandez R.N. 11:04 05/31/16. ( Lab redraw). --11:04 Hair Hernandez R.N. 12:32 05/31/16. Cardiac rhythm: sinus bradycardia. --12:32 Hair Hernandez R.N. 12:32 05/31/16. BP: 118/70. HR: 56. RR: 12. O2 saturation: 100% on room air. --12:32 Hair Hernandez R.N. 13:30 05/31/16. Cardiac rhythm: sinus bradycardia. --13:30 Hair Hernandez R.N. 13:28 05/31/16. BP: 113/78. HR: 57. RR: 14. O2 saturation: 99%. --13:30 Hair Hernandez R.N. 13:48 05/31/16. Patient and family informed about reason for wait and about plan of care. --13:48 Hair Hernandez R.N. 13:48 05/31/16. Patient waiting for disposition. --13:48 Hair Hernandez R.N. ( called Dr. Castañeda - cardiology. [phone]). --14:21 Gely Deal, Tech1 14:43 05/31/16. Patient informed about reason for wait and about plan of care (Cardiology to call back for consult). --14:43 Hair Hernandez R.N. 14:43 05/31/16. Cardiac rhythm: normal sinus rhythm. --14:43 Hair Hernandez R.N. 14:43 05/31/16. BP: 119/81. HR: 68. RR: 12. O2 saturation: 98% on room air. --14:43 Hair Hernandez R.N. 15:12 05/31/16. Patient informed about reason for wait and about plan of care (Transfer). --15:12 Hair Hernandez R.N. ( face sheet faxed to Prov. Rad. sent x-ray to Prov.). --15:26 Gely Deal, ER Tech1. DISPOSITION / DISCHARGE 15:12 05/31/16. Patient's personal items include, all given to patient on transfer, purse, glasses, pants. --15:12 Hair Hernandez R.N. 15:49 05/31/2016 Site #[address] upon transfer; patent. Good blood return present; flushes easily. --15:49 Hair Hernandez R.N. 15:50 05/31/16. The goals identified in the patient's plan of care were met. Transported via ambulance. Bed obtained. FALL RISK ASSESSMENT: Fall risk assessment completed. No fall risk identified. --15:50 Hair Hernandez R.N. 15:49 05/31/16. BP: 114/72. HR: 72. RR: 14. O2 saturation: 100% on room air. Temp: 98.1 F (oral). --15:50 Hair Hernandez R.N. 16:16 05/31/16. Report was given to a nurse. Report included patient's care, treatment, medications, reviewed medication reconcilliation, and condition (including any recent changes or anticipated changes). All questions were answered. Care was transferred. ( Ambulance RN). --16:16 Hair Hernandez R.N. 16:18 05/31/16. Departure time: 16:18. --16:18 Hair Hernandez R.N. 16:30 05/31/16. Report was given to a nurse via a phone call. Report included patient's care, treatment, medications, reviewed medication reconcilliation, and condition (including any recent changes or anticipated changes). All questions were answered. Report was acknowledged and care was transferred. (Suzy RN). --16:30 Hair Hernandez R.N. Locked/Released at 05/31/2016 17:45 by Hair Hernandez R.N.
--- NOTE | 2016-05-31 15:57 | ED CLINICAL REPORT ---
Clinical Report - Physicians/Mid Levels [facility] [address] [place] [address] 05/31/2016 9:00 Patient: MICHELLE JAY Time Seen: 09:29 May 31 2016. Arrived- By private vehicle. Historian- patient. CPT: ER phys charges level 5 plus (#[id number]). EKG interpretation (#[id number]). HISTORY OF PRESENT ILLNESS Chief Complaint: CHEST PAIN. It is described as burning and "pain" and it is described as located in the right chest area and radiating to the upper back. At its maximum, severity described as moderate. When seen in the E.D., it was gone. Modifying factors. Not worsened by anything. Not relieved by anything. This started yesterday Had intermittent palpitations and right , anterior CP . The two did not necessarily happen together. Pt notes short spells of CP lasting minutes, but had several spells that in total added up to an hour of symptoms over the past 24 hours. Pt does have a hx of PSVT diagnosed 30 years ago and takes a B-nehal for this. Had an ETT 6 months ago in [place] with slight but not concerning abnormalities. Has no significant cardiovascular history. Does have protein C, 5 Leiden and prothrombin mutation resulting in hypercoagulable state but has never had a clot or DVT. and is still present. Onset during light activity. No nausea, vomiting, difficulty breathing or diaphoresis. Similar symptoms previously: None. Recent medical care: Not recently seen/assessed. REVIEW OF SYSTEMS No fever, chills, cough, pedal edema or calf pain. No headache, sore throat, abdominal pain, black stools or difficulty with urination. No skin rash, enlarged lymph nodes or bloody stools. All systems otherwise negative, except as recorded above. PAST HISTORY Gastroesophageal Reflux Disease associated with chest pain up to the throat. Dyspnea. Prothrombin gene mutation. Protein C deficiency. Factor V Leiden mutation. Pulmonary Nodule. Chest Pain. Chest Wall Pain. Arrhythmia:PSVT Palpitations. Gastroenteritis. Hypertension. ADDITIONAL SURGERIES: Cholecystectomy. . Ectopic . Hyperlipidemia. Depression. Medications: Atenolol Oral 100 mg, daily. Allergies: Adhesive Tape. SOCIAL HISTORY Never smoker. No alcohol use or drug use. ADDITIONAL NOTES The nursing notes have been reviewed. PHYSICAL EXAM Vital Signs: 05/31/2016 09:04 BP: 122/63. HR: 58. RR: 18. O2 saturation: 100%. Temp: 97.8 F. Pain level now: 3/10. Appearance: Alert. No acute distress. Anxious. Eyes: Pupils equal, round and reactive to light. Eyes normal inspection. ENT: Ears normal. Nose normal. Pharynx normal. Neck: Normal inspection. Neck supple. CVS: Normal heart rate and rhythm. Heart sounds normal. Pulses normal. Respiratory: No respiratory distress. Breath sounds normal. Chest nontender. Abdomen: Soft and nontender. Bowel sounds normal. Back: Normal external inspection. Skin: Skin warm. Normal skin color. No rash. Extremities: Moderate right-sided calf tenderness. Extremities exhibit normal ROM. No lower extremity edema. Neuro: Oriented X 3. No motor deficit. No sensory deficit. Reflexes normal. LABS, X-RAYS, AND EKG EKG: Normal sinus rhythm. Rate: 58. Bradycardia. Normal P waves. Decreased QRS voltage in the limb leads. Moderate T wave inversion in lead I, II, V1, V2 and V3. Changes present when compared to prior EKG. The study has been interpreted contemporaneously. The study has been independently viewed by me. The EKG appears to be a good tracing. Chest X-ray: Borderline cardiomegaly. Views: AP (portable). Technique: good. The X-rays were independently viewed by me and interpreted by the radiologist. Lower Extremity Sonography: Negative study. Laboratory Tests: CBC w Diff: (MARY: 05/31/2016 09:30) ( MsgRcvd 05/31/2016 09:51) Final results Test Result Flag Units (Reference) WHITE BLOOD COUNT 5.6 K/uL (4.5-11.5) RED BLOOD COUNT 4.28 M/uL (4.00-5.20) HEMOGLOBIN 12.9 gm/dL (12.0-16.0) HEMATOCRIT 38.7 % (36.0-46.0) MEAN CELL VOLUME 91 fL (80-100) MEAN CORPUSCULAR HGB 30 pg (26-34) MEAN CORPUSCULAR HGB CONC 33 g/dL (31-37) RED CELL DISTRIBUTION WIDTH 12.7 % (11.6-14.8) PLATELET COUNT 269 K/uL (150-400) NEUTROPHIL % 55.8 % (50-75) LYMPH % 31.9 % (25-40) MONO % 9.2 % (3-14) EOSINOPHIL % 2.6 % (0-4) BASOPHIL % 0.5 % (0-2) [id number]: (MARY: 05/31/2016 09:30) ( MsgRcvd 05/31/2016 10:20) Final results Test Result Flag Units (Reference) D-DIMER QUANTITATIVE 1.14 H ug/mLFEU (0.27-0.52) The primary value of this quantitative assay relates toits negative predictive value (i.e. exclusion) of pulmonaryembolism/deep vein thrombosis/DIC.Elevated levels of d-dimer may also occur with:, age, cancer, inflammation, liver disease,post-op, infection, hematoma, coronary disease, peripheralarteriopathy, bleeding disorders and thrombolytic treatment.Results should be correlated with other clinical andradiological data.Testing Methodology: Latex Immunoassay CHEM 13 PANEL: (MARY: 05/31/2016 09:30) ( MsgRcvd 05/31/2016 10:28) Final results Test Result Flag Units (Reference) GLUCOSE 105 mg/dL (70-110) BUN 16 mg/dL (7-18) CREATININE 0.9 mg/dL (0.6-1.3) Estimated GFR >60 mL/min Estimated GFR- >60 mL/min Note: Persistent reduction over 3 months in eGFR<60 mL/min/1.73 m2 defines CKD. Patients with eGFR values>=60 mL/min/1.73 m2 may also have CKD if evidence ofpersistent proteinuria. Additional information may be foundat [email or web address].org. SODIUM 139 mmol/L (136-145) POTASSIUM 4.1 mmol/L (3.5-5.1) CHLORIDE 104 mmol/L (98-107) CARBON DIOXIDE 26 mmol/L (21-32) CALCIUM 10.0 mg/dL (8.5-10.1) TOTAL PROTEIN 7.7 g/dL (6.4-8.2) ALBUMIN 3.7 g/dL (3.3-5.0) BILIRUBIN, TOTAL 0.5 mg/dL (0.0-1.0) ALKALINE PHOSPHATASE 86 U/L (46-116) AST (SGOT) 27 U/L (15-37) ALT (SGPT) 29 U/L (12-78) MAGNESIUM 2.1 mg/dL (1.8-2.4) CPK 86 U/L (24-260) TROPONIN I <0.05 ng/mL (0.00-1.5) TROPONIN REFERENCE RANGE:<0.1 NEGATIVE0.1-1.5 INDETERMINANT>1.5 POSITIVE . PROGRESS AND PROCEDURES Course of Care: Heplock ASA 325 mg po Pt had a D-dimer of 1.21 on Apr 20 of this year and a negative CTA on the same day. Pt D-dimer today is 1.14 so will not pursue that level. records from the patient's attending physician, Dr. Lira and salesperson children's shoes Dr. Castañeda, are reviewed and show that the patient had an abnormal Lit protocol exercise treadmill in July 2015. This was followed up by cardiology consults a echocardiogram which was found to be normal and a subsequent ER visit and hospitalization for chest pain at [facility]. Hospitalization included CTA angiogram to rule out PE which was normal. In addition she had a CT coronary angiogram which showed less than 50% obstruction. No cardiac catheterization was done. Last office visit August 2015 at the PCP outlined above plan for the coronary artery disease that only involved medical management. Discussed case with on-call health care provider, (Kathleen: Cardiology production miner for Dr Castañeda. Recommends admission to r/o cardiac injury or unstable angina.). Reviewed test results. Agreed upon treatment plan and decision to admit. Patient/family counseled. Disposition: Transferred to [facility]. CLINICAL IMPRESSION Precordial chest pain characterized as "pressure" .12 lead EKG performed. (Electronically signed by Jay Cunningham MD 06/01/2016 15:51)
--- NOTE | 2016-05-31 15:57 | ED CLINICAL REPORT ---
Clinical Report - Physicians/Mid Levels [facility] [address] [place] [address] 05/31/2016 9:00 Patient: MICHELLE JAY Time Seen: 09:29 May 31 2016. Arrived- By private vehicle. Historian- patient. CPT: ER phys charges level 5 plus (#[id number]). EKG interpretation (#[id number]). HISTORY OF PRESENT ILLNESS Chief Complaint: CHEST PAIN. It is described as burning and "pain" and it is described as located in the right chest area and radiating to the upper back. At its maximum, severity described as moderate. When seen in the E.D., it was gone. Modifying factors. Not worsened by anything. Not relieved by anything. This started yesterday Had intermittent palpitations and right , anterior CP . The two did not necessarily happen together. Pt notes short spells of CP lasting minutes, but had several spells that in total added up to an hour of symptoms over the past 24 hours. Pt does have a hx of PSVT diagnosed 30 years ago and takes a B-nehal for this. Had an ETT 6 months ago in [place] with slight but not concerning abnormalities. Has no significant cardiovascular history. Does have protein C, 5 Leiden and prothrombin mutation resulting in hypercoagulable state but has never had a clot or DVT. and is still present. Onset during light activity. No nausea, vomiting, difficulty breathing or diaphoresis. Similar symptoms previously: None. Recent medical care: Not recently seen/assessed. REVIEW OF SYSTEMS No fever, chills, cough, pedal edema or calf pain. No headache, sore throat, abdominal pain, black stools or difficulty with urination. No skin rash, enlarged lymph nodes or bloody stools. All systems otherwise negative, except as recorded above. PAST HISTORY Gastroesophageal Reflux Disease associated with chest pain up to the throat. Dyspnea. Prothrombin gene mutation. Protein C deficiency. Factor V Leiden mutation. Pulmonary Nodule. Chest Pain. Chest Wall Pain. Arrhythmia:PSVT Palpitations. Gastroenteritis. Hypertension. ADDITIONAL SURGERIES: Cholecystectomy. . Ectopic . Hyperlipidemia. Depression. Medications: Atenolol Oral 100 mg, daily. Allergies: Adhesive Tape. SOCIAL HISTORY Never smoker. No alcohol use or drug use. ADDITIONAL NOTES The nursing notes have been reviewed. PHYSICAL EXAM Vital Signs: 05/31/2016 09:04 BP: 122/63. HR: 58. RR: 18. O2 saturation: 100%. Temp: 97.8 F. Pain level now: 3/10. Appearance: Alert. No acute distress. Anxious. Eyes: Pupils equal, round and reactive to light. Eyes normal inspection. ENT: Ears normal. Nose normal. Pharynx normal. Neck: Normal inspection. Neck supple. CVS: Normal heart rate and rhythm. Heart sounds normal. Pulses normal. Respiratory: No respiratory distress. Breath sounds normal. Chest nontender. Abdomen: Soft and nontender. Bowel sounds normal. Back: Normal external inspection. Skin: Skin warm. Normal skin color. No rash. Extremities: Moderate right-sided calf tenderness. Extremities exhibit normal ROM. No lower extremity edema. Neuro: Oriented X 3. No motor deficit. No sensory deficit. Reflexes normal. LABS, X-RAYS, AND EKG EKG: Normal sinus rhythm. Rate: 58. Bradycardia. Normal P waves. Decreased QRS voltage in the limb leads. Moderate T wave inversion in lead I, II, V1, V2 and V3. Changes present when compared to prior EKG. The study has been interpreted contemporaneously. The study has been independently viewed by me. The EKG appears to be a good tracing. Chest X-ray: Borderline cardiomegaly. Views: AP (portable). Technique: good. The X-rays were independently viewed by me and interpreted by the radiologist. Lower Extremity Sonography: Negative study. Laboratory Tests: CBC w Diff: (MARY: 05/31/2016 09:30) ( MsgRcvd 05/31/2016 09:51) Final results Test Result Flag Units (Reference) WHITE BLOOD COUNT 5.6 K/uL (4.5-11.5) RED BLOOD COUNT 4.28 M/uL (4.00-5.20) HEMOGLOBIN 12.9 gm/dL (12.0-16.0) HEMATOCRIT 38.7 % (36.0-46.0) MEAN CELL VOLUME 91 fL (80-100) MEAN CORPUSCULAR HGB 30 pg (26-34) MEAN CORPUSCULAR HGB CONC 33 g/dL (31-37) RED CELL DISTRIBUTION WIDTH 12.7 % (11.6-14.8) PLATELET COUNT 269 K/uL (150-400) NEUTROPHIL % 55.8 % (50-75) LYMPH % 31.9 % (25-40) MONO % 9.2 % (3-14) EOSINOPHIL % 2.6 % (0-4) BASOPHIL % 0.5 % (0-2) [id number]: (MARY: 05/31/2016 09:30) ( MsgRcvd 05/31/2016 10:20) Final results Test Result Flag Units (Reference) D-DIMER QUANTITATIVE 1.14 H ug/mLFEU (0.27-0.52) The primary value of this quantitative assay relates toits negative predictive value (i.e. exclusion) of pulmonaryembolism/deep vein thrombosis/DIC.Elevated levels of d-dimer may also occur with:, age, cancer, inflammation, liver disease,post-op, infection, hematoma, coronary disease, peripheralarteriopathy, bleeding disorders and thrombolytic treatment.Results should be correlated with other clinical andradiological data.Testing Methodology: Latex Immunoassay CHEM 13 PANEL: (MARY: 05/31/2016 09:30) ( MsgRcvd 05/31/2016 10:28) Final results Test Result Flag Units (Reference) GLUCOSE 105 mg/dL (70-110) BUN 16 mg/dL (7-18) CREATININE 0.9 mg/dL (0.6-1.3) Estimated GFR >60 mL/min Estimated GFR- >60 mL/min Note: Persistent reduction over 3 months in eGFR<60 mL/min/1.73 m2 defines CKD. Patients with eGFR values>=60 mL/min/1.73 m2 may also have CKD if evidence ofpersistent proteinuria. Additional information may be foundat [email or web address].org. SODIUM 139 mmol/L (136-145) POTASSIUM 4.1 mmol/L (3.5-5.1) CHLORIDE 104 mmol/L (98-107) CARBON DIOXIDE 26 mmol/L (21-32) CALCIUM 10.0 mg/dL (8.5-10.1) TOTAL PROTEIN 7.7 g/dL (6.4-8.2) ALBUMIN 3.7 g/dL (3.3-5.0) BILIRUBIN, TOTAL 0.5 mg/dL (0.0-1.0) ALKALINE PHOSPHATASE 86 U/L (46-116) AST (SGOT) 27 U/L (15-37) ALT (SGPT) 29 U/L (12-78) MAGNESIUM 2.1 mg/dL (1.8-2.4) CPK 86 U/L (24-260) TROPONIN I <0.05 ng/mL (0.00-1.5) TROPONIN REFERENCE RANGE:<0.1 NEGATIVE0.1-1.5 INDETERMINANT>1.5 POSITIVE . PROGRESS AND PROCEDURES Course of Care: Heplock ASA 325 mg po Pt had a D-dimer of 1.21 on Apr 20 of this year and a negative CTA on the same day. Pt D-dimer today is 1.14 so will not pursue that level. records from the patient's attending physician, Dr. Lira and septic tank service technician Dr. Castañeda, are reviewed and show that the patient had an abnormal Lit protocol exercise treadmill in July 2015. This was followed up by cardiology consults a echocardiogram which was found to be normal and a subsequent ER visit and hospitalization for chest pain at [facility]. Hospitalization included CTA angiogram to rule out PE which was normal. In addition she had a CT coronary angiogram which showed less than 50% obstruction. No cardiac catheterization was done. Last office visit August 2015 at the PCP outlined above plan for the coronary artery disease that only involved medical management. Discussed case with on-call health care provider, (Kathleen: Cardiology clinical admissions manager for Dr Castañeda. Recommends admission to r/o cardiac injury or unstable angina.). Reviewed test results. Agreed upon treatment plan and decision to admit. Patient/family counseled. Disposition: Transferred to [facility]. CLINICAL IMPRESSION Precordial chest pain characterized as "pressure" .12 lead EKG performed. (Electronically signed by Jay Cunningham MD 06/01/2016 15:51)
--- NOTE | 2016-06-01 15:51 | ED MAR SUMMARY ---
..... Medication Administration Record [facility] [address] [place] [address] Patient: MICHELLE JAY Visit ID: [id number] 50y, F Weight: 81.6 kg Height/Length: 65 in BMI: 30 ALLERGIES: Adhesive Tape Given 09:14 05/31/2016 Hair Hernandez R.N. Medication Administered: ASPIRIN [PO], Dose: 325 mg PO. Medication Ordered: Aspirin PO 325 mg (Do not crush or chew, NOW).
--- NOTE | 2016-06-01 15:51 | ED MED RECONCILIATION SUMMARY ---
Patient: MICHELLE JAY Medication Reconciliation Report [facility] VisitID: [id number] [address] [place] [place] [address] 50y, F Registration Date/Time: 05/31/2016 Weight: 81.6 kg Height/Length: 65 in. BMI: 30.0 ALLERGIES: Adhesive Tape The patient's Home Medications are listed below: THE FOLLOWING MEDICATIONS NEED TO BE RECONCILED: Atenolol Oral 100 mg, daily The source(s) of the original Home Medication information: patient The following Medications were given to the patient in the Emergency Department: Aspirin [PO] PO 325 mg, administered: 05/31/2016 9:14:00 AM The following Medications were prescribed to the patient: None.
--- NOTE | 2016-06-01 15:51 | ED MAR SUMMARY ---
..... Medication Administration Record [facility] [address] [place] [address] Patient: MICHELLE JAY Visit ID: [id number] 50y, F Weight: 81.6 kg Height/Length: 65 in BMI: 30 ALLERGIES: Adhesive Tape Given 09:14 05/31/2016 Hair Hernandez R.N. Medication Administered: ASPIRIN [PO], Dose: 325 mg PO. Medication Ordered: Aspirin PO 325 mg (Do not crush or chew, NOW).
--- NOTE | 2016-06-01 15:51 | ED DISCHARGE INSTRUCTIONS ---
Patient: MICHELLE JAY General Instructions [facility] VisitID: [id number] [address] [address] 50y, F Registration Date/Time: 05/31/2016 Precordial chest pain characterized as "pressure" .12 lead EKG performed. ADDITIONAL INFORMATION Chest Pain, Uncertain Cause Chest pain can happen for a number of reasons. Sometimes the cause can not be determined. If yourcondition does not seem serious, and your pain does not appear to be coming from your heart, your doctor may recommend watching it closely. Sometimes the signs of a serious problem take more time to appear. Therefore, watch for the warning signs listed below. Home care After your visit, follow these recommendations: Rest today and avoid strenuous activity. Take any prescribed medicine as directed. Follow-up care Follow up with your doctor or this facility as instructed or if you do not start to feel better within 24 hours. Call 911 Get immediate medical attention if any of the following occur: A change in the type of pain: if it feels different, becomes more severe, lasts longer, or begins to spread into your shoulder, arm, neck, jaw or back Shortness of breath or increased pain with breathing Weakness, dizziness, or fainting Rapid heart beat Get prompt medical attention Call your doctor right away if any of the following occur: Cough with dark colored sputum (phlegm) or blood Fever of 100.4F(38C) or higher, or as directed by your health care provider Swelling, pain or redness in one leg You have been given the following additional information: Chest Pain, Uncertain Cause (Electronically signed by Jay Cunningham MD 06/01/2016 15:51)
--- NOTE | 2016-06-01 15:51 | ED DISCHARGE INSTRUCTIONS ---
Patient: MICHELLE JAY General Instructions [facility] VisitID: [id number] [address] [place] [address] 50y, F Registration Date/Time: 05/31/2016 Precordial chest pain characterized as "pressure" .12 lead EKG performed. ADDITIONAL INFORMATION Chest Pain, Uncertain Cause Chest pain can happen for a number of reasons. Sometimes the cause can not be determined. If yourcondition does not seem serious, and your pain does not appear to be coming from your heart, your doctor may recommend watching it closely. Sometimes the signs of a serious problem take more time to appear. Therefore, watch for the warning signs listed below. Home care After your visit, follow these recommendations: Rest today and avoid strenuous activity. Take any prescribed medicine as directed. Follow-up care Follow up with your doctor or this facility as instructed or if you do not start to feel better within 24 hours. Call 911 Get immediate medical attention if any of the following occur: A change in the type of pain: if it feels different, becomes more severe, lasts longer, or begins to spread into your shoulder, arm, neck, jaw or back Shortness of breath or increased pain with breathing Weakness, dizziness, or fainting Rapid heart beat Get prompt medical attention Call your doctor right away if any of the following occur: Cough with dark colored sputum (phlegm) or blood Fever of 100.4F(38C) or higher, or as directed by your health care provider Swelling, pain or redness in one leg You have been given the following additional information: Chest Pain, Uncertain Cause (Electronically signed by Jay Cunningham MD 06/01/2016 15:51)
--- NOTE | 2016-06-01 15:51 | ED MED RECONCILIATION SUMMARY ---
Patient: MICHELLE JAY Medication Reconciliation Report [facility] VisitID: [id number] [address] [place] [place] [address] 50y, F Registration Date/Time: 05/31/2016 Weight: 81.6 kg Height/Length: 65 in. BMI: 30.0 ALLERGIES: Adhesive Tape The patient's Home Medications are listed below: THE FOLLOWING MEDICATIONS NEED TO BE RECONCILED: Atenolol Oral 100 mg, daily The source(s) of the original Home Medication information: patient The following Medications were given to the patient in the Emergency Department: Aspirin [PO] PO 325 mg, administered: 05/31/2016 9:14:00 AM The following Medications were prescribed to the patient: None.
== END 2016-05-31 16:18 | disposition other institution (70) ==
LOC: ED SRH 09:00
DX: R07.2 Precordial pain (principal); K21.9 Gastro-esophageal reflux disease without esophagitis; I10 Essential (primary) hypertension; Z79.899 Other long term (current) drug therapy; Z91.048 Other nonmedicinal substance allergy status

== ENCOUNTER 2016-06-15 09:31 | Emergency (ER) | payer OTHER ==
--- NOTE | 2016-06-15 10:45 | DIAGNOSTIC IMAGING REPORT ---
PROCEDURE: XR ABD SERIES 2V ABD/1V CHEST INDICATION: POST-ENDOSCOPY ABDOMINAL PAIN TECHNIQUE: AP supine and upright views with PA view chest. COMPARISON: None. FINDINGS: ABDOMEN: Bowel pattern is normal. No evidence of free air. Soft tissues and osseous structures are normal. CHEST: Lungs are clear. Heart and mediastinum are normal. Thorax is normal. IMPRESSION: 1. Negative acute abdomen series.
--- NOTE | 2016-06-15 12:40 | ED CLINICAL REPORT ---
Clinical Report - Physicians/Mid Levels [facility] [address] [place] [place] [address] 06/15/2016 9:33 [id number] Time Seen: 10:10. Arrived- By private vehicle. Historian- patient. HISTORY OF PRESENT ILLNESS Chief Complaint: CRAMPS chills. This started last night and is still present. At its maximum, severity described as mild. When seen in the E.D., severity described as mild. Modifying factors. Not worsened by anything. Not relieved by anything. It is described as cramping and it is described as generalized in location. No nausea, loss of appetite, vomiting or diarrhea. Similar symptoms previously: None. Recent medical care: ( PT had an endoscopy a couple of days ago.). REVIEW OF SYSTEMS No constipation, black stools, hematemesis, difficulty with urination or pain with urination. No urinary frequency, bloody stools, fever, headache or sore throat. No blurred vision, chest pain, difficulty breathing, cough or joint pain. No skin rash or back pain. The patient has had chills. All systems otherwise negative, except as recorded above. PAST HISTORY Problems: Depression. Hyperlipidemia. Gastroesophageal Reflux Disease. Dyspnea. Prothrombin gene mutation. Protein C deficiency. Factor V Leiden mutation. Pulmonary Nodule. Reflux. LNMP - Last Normal Menstrual Period. Arrhythmia. Immunizations. Palpitations. Gastroenteritis. Hypertension. Additional Surgeries: Cholecystectomy. . Ectopic . Endoscopy. Medications: Atenolol Oral 100 mg, daily. Allergies: Adhesive Tape. SOCIAL HISTORY Smoker- current status unknown. No alcohol use or drug use. ADDITIONAL NOTES The nursing notes have been reviewed. PHYSICAL EXAM Vital Signs: 06/15/2016 09:42 BP: 124/76. HR: 79. RR: 16. O2 saturation: 100%. Temp: 98.6 F. Pain level now: 04/25. Have been reviewed. Appearance: Alert. Oriented X3. No acute distress. Eyes: Pupils equal, round and reactive to light. Eyes normal inspection. ENT: Nose normal. Neck: Normal inspection. Neck supple. CVS: Normal heart rate and rhythm. Heart sounds normal. Pulses normal. Respiratory: No respiratory distress. Breath sounds normal. Abdomen: Soft. Mild tenderness. No guarding or rebound tenderness. Back: Normal inspection. No CVA tenderness. Skin: Skin warm and dry. Normal skin color. No rash. Normal skin turgor. Extremities: Extremities exhibit normal ROM. No lower extremity edema. Neuro: Oriented X 3. No motor deficit. No sensory deficit. LABS, X-RAYS, AND EKG KUB: No acute disease. Gas pattern normal. Psoas shadows normal. Soft tissues normal. No mass effect. No organomegaly present. No fracture or bony lesion present. Views: two-view AP. Technique: good. The X-rays were independently viewed by me, interpreted by the radiologist and contemporaneously by me and discussed with the radiologist. Prior films were not available for comparison. Laboratory Tests: UA-Culture if indicated: (MARY: 06/15/2016 11:05) ( [facility] 06/15/2016 12:29) Final results Test Result Flag Units (Reference) URINE COLOR YELLOW URINE APPEARANCE CLEAR URINE GLUCOSE NEGATIVE (NEGATIVE) URINE BILIRUBIN NEGATIVE (NEGATIVE) URINE KETONE NEGATIVE (NEGATIVE) URINE SPECIFIC GRAVITY <= 1.005 L (1.010-1.030) URINE PH 6.0 (5.0-8.0) URINE PROTEIN NEGATIVE (NEGATIVE) URINE UROBILINOGEN 0.2 EU/dL (0.2-1.0) URINE NITRITE NEGATIVE (NEGATIVE) URINE BLOOD TRACE-INTACT (NEGATIVE) URINE LEUK ESTERASE POSITIVE (NEGATIVE) URINE RBC NONE SEEN rbc/hpf (0-1) URINE WBC 0-1 wbc/hpf (0-1) URINE EPITHELIAL CELLS 0-1 EPI/hpf (0-5) URINE BACTERIA NONE SEEN (NONE SEEN) URINE COMMENT CULTURE INDICATED URINE CULTURES ARE SET-UP BASED ON THE FOLLOWING CRITERIA:POSITIVE NITRITEPOSITIVE LEUKOCYTE ESTERASEGREATER THAN 10 WHITE BLOOD CELLSMODERATE (2+) OR GREATER BACTERIA CBC w Diff: (MARY: 06/15/2016 10:20) ( [facility] 06/15/2016 10:43) Final results Test Result Flag Units (Reference) WHITE BLOOD COUNT 6.3 K/uL (4.5-11.5) RED BLOOD COUNT 4.49 M/uL (4.00-5.20) HEMOGLOBIN 13.4 gm/dL (12.0-16.0) HEMATOCRIT 40.3 % (36.0-46.0) MEAN CELL VOLUME 90 fL (80-100) MEAN CORPUSCULAR HGB 30 pg (26-34) MEAN CORPUSCULAR HGB CONC 33 g/dL (31-37) RED CELL DISTRIBUTION WIDTH 12.8 % (11.6-14.8) PLATELET COUNT 264 K/uL (150-400) NEUTROPHIL % 64.9 % (50-75) LYMPH % 22.0 L % (25-40) MONO % 10.9 % (3-14) EOSINOPHIL % 1.9 % (0-4) BASOPHIL % 0.3 % (0-2) CMP: (MARY: 06/15/2016 10:20) ( MsgRcvd 06/15/2016 10:57) Final results Test Result Flag Units (Reference) GLUCOSE 111 H mg/dL (70-110) BUN 11 mg/dL (7-18) CREATININE 0.9 mg/dL (0.6-1.3) Estimated GFR >60 mL/min Estimated GFR- >60 mL/min Note: Persistent reduction over 3 months in eGFR<60 mL/min/1.73 m2 defines CKD. Patients with eGFR values>=60 mL/min/1.73 m2 may also have CKD if evidence ofpersistent proteinuria. Additional information may be foundat www.kidney.org. SODIUM 139 mmol/L (136-145) POTASSIUM 4.0 mmol/L (3.5-5.1) CHLORIDE 101 mmol/L (98-107) CARBON DIOXIDE 28 mmol/L (21-32) CALCIUM 9.8 mg/dL (8.5-10.1) TOTAL PROTEIN 8.3 H g/dL (6.4-8.2) ALBUMIN 3.9 g/dL (3.3-5.0) BILIRUBIN, TOTAL 0.5 mg/dL (0.0-1.0) ALKALINE PHOSPHATASE 94 U/L (46-116) AST (SGOT) 24 U/L (15-37) ALT (SGPT) 30 U/L (12-78) Culture, Urine: (MARY: 06/15/2016 11:05) ( MsgRcvd 06/17/2016 10:06) Final results . Pulse Oximetry: 06/15/2016 09:42 O2 saturation: 100%. (FIO2 - room air). Interpretation: normal. PROGRESS AND PROCEDURES Course of Care: Pt was worked up for her sx, and found to have a mildly positive UA. Pt stated she did not feel as though she had a UTI, and did not want to take abx unless she was confirmed by cx to have one. I did state that I would give her an antibiotic prescription. If the cx is positive, she should start the abx (she will be notified by staff if this is the case). Work-up was otherwise unremarkable. No emergent condition identified. Patient counseled in person regarding the patient's stable condition, test results, diagnosis and need for follow-up. Concerns were addressed. Old medical records reviewed. Disposition: Discharged. Condition: stable. CLINICAL IMPRESSION Possible acute urinary tract infection with cystitis. Post-operative complication from gastrointestinal surgery (discomfort). INSTRUCTIONS Drink plenty of fluids. (All of your labs and studies look fairly good. You have a mildly positive urinalysis. If you would prefer to wait to fill the antibiotic until the culture comes back (unless you develop symptoms specific to a UTI), you may do so. We will contact you if your culture is positive.). Warnings: GENERAL WARNINGS: Return or contact your physician immediately if your condition worsens or changes unexpectedly, if not improving as expected, or if other problems arise. Your Current Medications: CONTINUE TAKING THE FOLLOWING MEDICATIONS: Atenolol Oral : 100 mg daily. Prescription Medications: Trimethoprim-Sulfamethoxazole (regular strength): take 1 tablet orally every 12 hours for 7 days. No refill. Follow-up: Follow up with your doctor as needed. Understanding of the discharge instructions verbalized by patient. (Electronically signed by Rebeca Schaeffer MD 06/19/2016 7:09)
--- NOTE | 2016-06-15 12:41 | ED ORDER SUMMARY ---
..... Patient: MICHELLE JAY OrderSheet [facility] VisitID: [id number] [address] [place] [address] 50y, F Registration Date/Time: 06/15/2016 ORDER SHEET Weight: 83.9 kg (stated) Allergies: Adhesive Tape GENERAL ORDERS: Abd Series 2V Abd/1V Chest Urgent (09:44 06/15/2016 Katja LANZA) (Ack 9:47 Angie) (10:00 Angie) CBC w Diff Urgent (:45 06/15/2016 Katja LANZA) (Ack 9:47 Angie) (10:15 LWhalen R.N.) CMP Urgent (:06/15/2016 Katja LANZA) (Ack 9:47 Angie) (10:15 LWhalen R.N.) UA-Culture if indicated Urgent (:06/15/2016 Katja LANZA) (Ack 9:47 Angie) (12:57 SRoberts R.N.) MEDICATION ORDERS: IV FLUIDS: IV NS : initial bolus 1000 mL (1000 mL/hr), then none - (NOW) (:45 06/15/2016 Katja LANZA) (10:15 LWhalen R.N.) ORDER SHEET NOTES: [Electronically signed by Mer Vuong R.N. (13:06/15/2016)] [Electronically signed by Rebeca Schaeffer MD (07:09 06/19/2016)] [Electronically locked/signed by Mer Vuong R.N. (13:06/15/2016)]
--- NOTE | 2016-06-15 12:41 | ED ORDER SUMMARY ---
..... Patient: MICEHLLE JAY OrderSheet [facility] VisitID: [id number] [address] [place] [address] 50y, F Registration Date/Time: 06/15/2016 ORDER SHEET Weight: 83.9 kg (stated) Allergies: Adhesive Tape GENERAL ORDERS: Abd Series 2V Abd/1V Chest Urgent (09:44 06/15/2016 Katja LANZA) (Ack 9:47 Angie) (10:00 Angie) CBC w Diff Urgent (:45 06/15/2016 Katja LANZA) (Ack 9:47 Angie) (10:15 LWhalen R.N.) CMP Urgent (:06/15/2016 Katja LANZA) (Ack 9:47 Angie) (10:15 LWhalen R.N.) UA-Culture if indicated Urgent (:06/15/2016 Katja LANZA) (Ack 9:47 Angie) (12:57 SRoberts R.N.) MEDICATION ORDERS: IV FLUIDS: IV NS : initial bolus 1000 mL (1000 mL/hr), then none - (NOW) (:45 06/15/2016 Katja LANZA) (10:15 LWhalen R.N.) ORDER SHEET NOTES: [Electronically signed by Mer Vuong R.N. (13:06/15/2016)] [Electronically signed by Rebeca Schaeffer MD (07:09 06/19/2016)] [Electronically locked/signed by Mer Vuong R.N. (13:06/15/2016)]
--- NOTE | 2016-06-15 12:41 | ED NURSING NOTES ---
Clinical Report - Nurses [facility] [address] [place] [address] 06/15/2016 9:33 Patient: MICHELLE JAY TRIAGE Triage time 09:42. Acuity: LEVEL 3. Chief Complaint: FEVER, CHILLS and "NOT FEELING WELL". Alert. No acute distress. PAULO COMA SCORE: Paulo Coma Scale: 15- eyes open spontaneously (4); best verbal response- oriented x 4 (5); best motor response- obeys commands (6). --09:48 Patsy Cooper R.N. 09:42 06/15/16. BP: 124/76. HR: 79. RR: 16. O2 saturation: 100% on room air. Temp: 98.6 F (oral). Pain level now: 04/25. --09:48 Patsy Cooper R.N. Weight: 83.9 kg stated. Height/Length: 65 inches Per Patient. BMI: 30.8. --09:45 Patsy Cooper R.N. Medications Atenolol Oral 100 mg, daily. --09:43 Patsy Cooper R.N. Medication/allergy information source: the patient. --09:48 Patsy Cooper R.N. Allergies Adhesive Tape. --09:43 Patsy Cooper R.N. History Arrived by private vehicle. Historian: patient. Unaccompanied. Primary physician (Soraya). This started yesterday. ( endoscopy on Sunday). PAST MEDICAL HX: The patient is post-menopausal. SOCIAL HX: Smoker- current status unknown (no). No alcohol use or drug use. FALL RISK ASSESSMENT: Fall risk assessment completed. No fall risk identified. FUNCTIONAL ASSESSMENT: Functional assessment: no impairments noted. LEARNING NEEDS ASSESSMENT: The learning needs assessment revealed no barriers. --09:48 Patsy Cooper R.N. PROBLEMS: Depression. Hyperlipidemia. Gastroesophageal Reflux Disease. Dyspnea. Prothrombin gene mutation. Protein C deficiency. Factor V Leiden mutation. Pulmonary Nodule. Chest Pain. Diarrhea. Chest Wall Pain. Arrhythmia. Immunizations. Palpitations. Gastroenteritis. Hypertension. --09:44 Patsy Cooper R.N. ADDITIONAL SURGERIES: Cholecystectomy. . Ectopic . Endoscopy. --09:44 Patsy Cooper R.N. Assessment GENERAL / NEURO / PSYCH: Alert. Oriented X 4. Appears in no acute distress. Patient appears calm and cooperative. RESPIRATORY: Respirations not labored. SKIN: Skin is warm and dry. --09:48 Patsy Cooper R.N. Interventions ID and allergy band on patient. To treatment room. --09:48 Patsy Cooper R.N. PHYSICAL ASSESSMENT 09:45. Ambulatory to room. Patient gowned. GENERAL / NEURO / PSYCH: Alert. Oriented X 4. Appears in no acute distress. RESPIRATORY: Respirations not labored. SKIN: Skin is warm and dry. --11:20 Patsy Cooper R.N. NURSING PROGRESS NOTES ( Pt transported to [facility] and back). --10:01 Merline Wetzel 10:15 06/15/2016 Site #1 started via IV in the left antecubital space with an 20g angiocath, with aseptic technique and good blood return; one attempt. Blood drawn: rainbow set. Labeled in the presence of the patient and sent to the lab. Saline lock flushed with 10 mL saline. --10:15 Kassi Fournier R.N. 10:15 06/15/2016 Started bag #1 1000 mL IV Fluids IV NS (Saline); at 1000 mL/hr over 1 hour(s) via site #1 via dial-a-flow. Allergies verified and confirmed 5 rights. IV patency established. IV site checked: no pain, redness, or swelling. IV flushed thoroughly pre- and post-medication administration. --10:15 Kassi Fournier R.N. ( requested urine from patient and patient asked why. I stated most likely to r/o UTI and patient said she does not have one she knows. I explained that the MD ordered it and we would like to fulfill our orders. Patient said she has had over 100 bladder infections and she doesn't have one. I reviewed where she can collect her sample and how.). --10:23 Kassi Fournier R.N. 09:45. Patient gowned. Head of bed elevated. Call light placed in reach. Side rails up x 1. Bed placed in lowest position. Brakes of bed on. --11:20 Patsy Cooper R.N. 11:21 06/15/2016 Site #[address] Converted to saline lock and flushed with 10 mL saline; flushes easily. --11:21 Patsy Cooper R.N. 11:21 06/15/2016 IV Fluids IV NS Discontinued: bag #1 completed. Total amount infused: 1000 mL. --11:21 Patsy Cooper R.N. 11:22. The patient is calm and resting quietly. Overall patient status is the same- she states feels the same (pt states she gave a urine specimen). GENERAL / NEURO / PSYCH: Alert. Oriented X 4. RESPIRATORY: No respiratory distress. SKIN: Skin is warm and dry. --11:22 Patsy Cooper R.N. DISPOSITION / DISCHARGE Condition at departure: improved. No learning barriers present. Reviewed medication(s) side effects, precautions, dosing and course information. Prescription(s) given to the patient. Patient verbalized understanding. Written instructions provided in [place]. The patient was discharged home and accompanied by gardening instructor. She left the Emergency Department ambulatory and via private vehicle. Airport Engineer driving. Medication list reviewed and validated. --13:25 Mer Vuong R.N. 12:59 06/15/16. BP: 119/72. HR: 71. RR: 18. O2 saturation: 98% on room air. Temp: deferred. Pain level now: 0. 11:45 06/15/16. BP: 119/69. HR: 68. RR: 18. O2 saturation: 99%. Pain level now: 04/25. 09:42 06/15/16. BP: 124/76. HR: 79. RR: 16. O2 saturation: 100% on room air. Temp: 98.6 F (oral). Pain level now: 04/25. --13:25 Mer Vuong R.N. Locked/Released at 06/15/2016 13:27 by Mer Vuong R.N.
--- NOTE | 2016-06-15 12:41 | ED NURSING NOTES ---
Clinical Report - Nurses [facility] [address] [place] [address] 06/15/2016 9:33 Patient: MICHELLE JAY TRIAGE Triage time 09:42. Acuity: LEVEL 3. Chief Complaint: FEVER, CHILLS and "NOT FEELING WELL". Alert. No acute distress. PAULO COMA SCORE: Paulo Coma Scale: 15- eyes open spontaneously (4); best verbal response- oriented x 4 (5); best motor response- obeys commands (6). --09:48 Patsy Cooper R.N. 09:42 06/15/16. BP: 124/76. HR: 79. RR: 16. O2 saturation: 100% on room air. Temp: 98.6 F (oral). Pain level now: 04/25. --09:48 Patsy Cooper R.N. Weight: 83.9 kg stated. Height/Length: 65 inches Per Patient. BMI: 30.8. --09:45 Patsy Cooper R.N. Medications Atenolol Oral 100 mg, daily. --09:43 Patsy Cooper R.N. Medication/allergy information source: the patient. --09:48 Patsy Cooper R.N. Allergies Adhesive Tape. --09:43 Patsy Cooper R.N. History Arrived by private vehicle. Historian: patient. Unaccompanied. Primary physician (Soraya). This started yesterday. ( endoscopy on Sunday). PAST MEDICAL HX: The patient is post-menopausal. SOCIAL HX: Smoker- current status unknown (no). No alcohol use or drug use. FALL RISK ASSESSMENT: Fall risk assessment completed. No fall risk identified. FUNCTIONAL ASSESSMENT: Functional assessment: no impairments noted. LEARNING NEEDS ASSESSMENT: The learning needs assessment revealed no barriers. --09:48 Patsy Cooper R.N. PROBLEMS: Depression. Hyperlipidemia. Gastroesophageal Reflux Disease. Dyspnea. Prothrombin gene mutation. Protein C deficiency. Factor V Leiden mutation. Pulmonary Nodule. Chest Pain. Diarrhea. Chest Wall Pain. Arrhythmia. Immunizations. Palpitations. Gastroenteritis. Hypertension. --09:44 Patsy Cooper R.N. ADDITIONAL SURGERIES: Cholecystectomy. . Ectopic . Endoscopy. --09:44 Patsy Cooper R.N. Assessment GENERAL / NEURO / PSYCH: Alert. Oriented X 4. Appears in no acute distress. Patient appears calm and cooperative. RESPIRATORY: Respirations not labored. SKIN: Skin is warm and dry. --09:48 Patsy Cooper R.N. Interventions ID and allergy band on patient. To treatment room. --09:48 Patsy Cooper R.N. PHYSICAL ASSESSMENT 09:45. Ambulatory to room. Patient gowned. GENERAL / NEURO / PSYCH: Alert. Oriented X 4. Appears in no acute distress. RESPIRATORY: Respirations not labored. SKIN: Skin is warm and dry. --11:20 Patsy Cooper R.N. NURSING PROGRESS NOTES ( Pt transported to [facility] and back). --10:01 Merline Wetzel 10:15 06/15/2016 Site #1 started via IV in the left antecubital space with an 20g angiocath, with aseptic technique and good blood return; one attempt. Blood drawn: rainbow set. Labeled in the presence of the patient and sent to the lab. Saline lock flushed with 10 mL saline. --10:15 Kassi Fournier R.N. 10:15 06/15/2016 Started bag #1 1000 mL IV Fluids IV NS (Saline); at 1000 mL/hr over 1 hour(s) via site #1 via dial-a-flow. Allergies verified and confirmed 5 rights. IV patency established. IV site checked: no pain, redness, or swelling. IV flushed thoroughly pre- and post-medication administration. --10:15 Kassi Fournier R.N. ( requested urine from patient and patient asked why. I stated most likely to r/o UTI and patient said she does not have one she knows. I explained that the MD ordered it and we would like to fulfill our orders. Patient said she has had over 100 bladder infections and she doesn't have one. I reviewed where she can collect her sample and how.). --10:23 Kassi Fournier R.N. 09:45. Patient gowned. Head of bed elevated. Call light placed in reach. Side rails up x 1. Bed placed in lowest position. Brakes of bed on. --11:20 Patsy Cooper R.N. 11:21 06/15/2016 Site #[address] Converted to saline lock and flushed with 10 mL saline; flushes easily. --11:21 Patsy Cooper R.N. 11:21 06/15/2016 IV Fluids IV NS Discontinued: bag #1 completed. Total amount infused: 1000 mL. --11:21 Patsy Cooper R.N. 11:22. The patient is calm and resting quietly. Overall patient status is the same- she states feels the same (pt states she gave a urine specimen). GENERAL / NEURO / PSYCH: Alert. Oriented X 4. RESPIRATORY: No respiratory distress. SKIN: Skin is warm and dry. --11:22 Patsy Cooper R.N. DISPOSITION / DISCHARGE Condition at departure: improved. No learning barriers present. Reviewed medication(s) side effects, precautions, dosing and course information. Prescription(s) given to the patient. Patient verbalized understanding. Written instructions provided in [place]. The patient was discharged home and accompanied by mask layout designer. She left the Emergency Department ambulatory and via private vehicle. Event Host driving. Medication list reviewed and validated. --13:25 Mer Vuong R.N. 12:59 06/15/16. BP: 119/72. HR: 71. RR: 18. O2 saturation: 98% on room air. Temp: deferred. Pain level now: 0. 11:45 06/15/16. BP: 119/69. HR: 68. RR: 18. O2 saturation: 99%. Pain level now: 04/25. 09:42 06/15/16. BP: 124/76. HR: 79. RR: 16. O2 saturation: 100% on room air. Temp: 98.6 F (oral). Pain level now: 04/25. --13:25 Mer Vuong R.N. Locked/Released at 06/15/2016 13:27 by Mer Vuong R.N.
--- NOTE | 2016-06-19 07:10 | ED MAR SUMMARY ---
..... Medication Administration Record [facility] [address] [place] [address] Patient: MICHELLE JAY Visit ID: [id number] 50y, F Weight: 83.9 kg Height/Length: 65 in BMI: 30.8 ALLERGIES: Adhesive Tape Start 10:15 06/15/2016 Kassi Fournier RTerrell, Stop 11:21 06/15/2016 Patsy Cooper R.N. Medication Administered: IV NS (SALINE), Dose: IV Fluids over 1 hour(s), Rate: 1000 mL/hr, Dispensed: 1000 mL bag, Site: #1 left AC. Medication Ordered: IV NS : initial bolus 1000 mL (1000 mL/hr), then none - (NOW).
--- NOTE | 2016-06-19 07:10 | ED MED RECONCILIATION SUMMARY ---
Patient: MICHELLE JAY Medication Reconciliation Report [facility] VisitID: [id number] [address] [place] [address] 50y, F Registration Date/Time: 06/15/2016 Weight: 83.9 kg Height/Length: 65 in. BMI: 30.8 ALLERGIES: Adhesive Tape The patient's Home Medications are listed below: CONTINUE TAKING THE FOLLOWING MEDICATIONS: Atenolol Oral 100 mg, daily The source(s) of the original Home Medication information: patient The following Medications were given to the patient in the Emergency Department: IV NS IV Fluids bolus 0, then 1000 mL/hr, administered: 06/15/2016 10:15:00 AM The following Medications were prescribed to the patient: Trimethoprim-Sulfamethoxazole (regular strength): take 1 tablet orally every 12 hours for 7 days. No refill. -- Rebeca Schaeffer MD
--- NOTE | 2016-06-19 07:10 | ED MAR SUMMARY ---
..... Medication Administration Record [facility] [address] [place] [address] Patient: MICHELLE JAY Visit ID: [id number] 50y, F Weight: 83.9 kg Height/Length: 65 in BMI: 30.8 ALLERGIES: Adhesive Tape Start 10:15 06/15/2016 Kassi Fournier RTerrell, Stop 11:21 06/15/2016 Patsy Cooper R.N. Medication Administered: IV NS (SALINE), Dose: IV Fluids over 1 hour(s), Rate: 1000 mL/hr, Dispensed: 1000 mL bag, Site: #1 left AC. Medication Ordered: IV NS : initial bolus 1000 mL (1000 mL/hr), then none - (NOW).
--- NOTE | 2016-06-19 07:10 | ED MED RECONCILIATION SUMMARY ---
Patient: MICHELLE JAY Medication Reconciliation Report [facility] VisitID: [id number] [address] [place] [address] 50y, F Registration Date/Time: 06/15/2016 Weight: 83.9 kg Height/Length: 65 in. BMI: 30.8 ALLERGIES: Adhesive Tape The patient's Home Medications are listed below: CONTINUE TAKING THE FOLLOWING MEDICATIONS: Atenolol Oral 100 mg, daily The source(s) of the original Home Medication information: patient The following Medications were given to the patient in the Emergency Department: IV NS IV Fluids bolus 0, then 1000 mL/hr, administered: 06/15/2016 10:15:00 AM The following Medications were prescribed to the patient: Trimethoprim-Sulfamethoxazole (regular strength): take 1 tablet orally every 12 hours for 7 days. No refill. -- Rebeca Schaeffer MD
--- NOTE | 2016-06-19 07:10 | ED DISCHARGE INSTRUCTIONS ---
Patient: MICHELLE JAY General Instructions [facility] VisitID: [id number] [address] [place] [address] 50y, F Registration Date/Time: 06/15/2016 Post-operative complication from gastrointestinal surgery (discomfort). INSTRUCTIONS Drink plenty of fluids. (All of your labs and studies look fairly good. You have a mildly positive urinalysis. If you would prefer to wait to fill the antibiotic until the culture comes back (unless you develop symptoms specific to a UTI), you may do so. We will contact you if your culture is positive.). Warnings: GENERAL WARNINGS: Return or contact your physician immediately if your condition worsens or changes unexpectedly, if not improving as expected, or if other problems arise. Your Current Medications: CONTINUE TAKING THE FOLLOWING MEDICATIONS: Atenolol Oral : 100 mg daily. Prescription Medications: Trimethoprim-Sulfamethoxazole (regular strength): take 1 tablet orally every 12 hours for 7 days. No refill. Follow-up: Follow up with your doctor as needed. Understanding of the discharge instructions verbalized by patient. ADDITIONAL INFORMATION Bladder Infection,Female (Adult) A bladder infection ("cystitis" or "UTI") usually causes a constant urge to urinate and a burning when passing urine. Urine may be cloudy, smelly or dark. There may be pain in the lower abdomen. A bladder infection occurs when bacteria from the vaginal area enter the bladder opening (urethra). This can occur from sexual intercourse, wearing tight clothing, dehydration and other factors. Home Care: Drink lots of fluids (at least 6-8 glasses a day, unless you must restrict fluids for other medical reasons). This will force the medicine into your urinary system and flush the bacteria out of your body. Avoid sexual intercourse until your symptoms are gone. Avoid caffeine, alcohol and spicy foods. These can irritate the bladder. A bladder infection is treated with antibiotics. You may also be given Pyridium (generic = phenazopyridine) to reduce the burning sensation. This medicine will cause your urine to become a bright orange color. The orange urine may stain clothing. You may wear a pad or panty-liner to protect clothing. Preventing Future Infections: Always wipe from front to back after a bowel movement. Keep the genital area clean and dry. Drink plenty of fluids each day to avoid dehydration. Both sexual partners should wash before intercourse. Urinate right after intercourse to flush out the bladder. Wear cotton underwear and cotton-lined panty hose; avoid tight-fitting pants. If you are on control pills and are having frequent bladder infections, discuss with your doctor. Follow Up: Return to this facility or see your doctor if ALL symptoms are not gone after three days of treatment. Get Prompt Medical Attention if any of the following occur: Fever of 100.4F (38C) or higher, or as directed by your healthcare provider No improvement by the third day of treatment Increasing back or abdominal pain Repeated vomiting; unable to keep medicine down Weakness, dizziness or fainting Vaginal discharge Pain, redness or swelling in the labia (outer vaginal area) You have been given the following additional information: Bladder Infection, Female (Adult) (Electronically signed by Rebeca Schaeffer MD 06/19/2016 7:09)
== END 2016-06-15 12:50 | disposition home or self-care (01) ==
LOC: ED SRH 09:31
DX: K91.89 Other postprocedural complications and disorders of digestive system (principal); K21.9 Gastro-esophageal reflux disease without esophagitis; K52.9 Noninfective gastroenteritis and colitis, unspecified; I10 Essential (primary) hypertension; D68.51 Activated protein C resistance; D68.52 Prothrombin gene mutation; D68.59 Other primary thrombophilia
CPT/HCPCS: 90004; 90100; 90469; 95059

== ENCOUNTER 2016-08-16 00:26 | Emergency (ER) | payer OTHER ==
--- NOTE | 2016-08-16 00:57 | ED CLINICAL REPORT ---
Clinical Report - Physicians/Mid Levels [facility] [address] [place] [place] [address] 08/16/2016 0:27 Patient: MICHELLE JAY Time Seen: 00:37. Arrived- By private vehicle. Historian- patient. HISTORY OF PRESENT ILLNESS Chief Complaint: BLOOD PRESSURE CHECK and ELEVATED. This started just prior to arrival. No headache, fatigue or weakness. (patient was concerned because "the bottom number' on her home blood pressure monitor was elevated.). REVIEW OF SYSTEMS No chills, fever, sweats, calf pain or chest pain. No cough, difficulty breathing, pedal edema, palpitations or abdominal pain. No constipation, diarrhea, nausea, vomiting or urinary problems. All systems otherwise negative, except as recorded above. PAST HISTORY Problems: Depression. Hyperlipidemia. Gastroesophageal Reflux Disease. Dyspnea. Prothrombin gene mutation. Protein C deficiency. Factor V Leiden mutation. Pulmonary Nodule. Chest Pain. Reflux. Diarrhea. Chest Wall Pain. Arrhythmia. Palpitations. Gastroenteritis. Hypertension. Additional Surgeries: Cholecystectomy. . Ectopic . Endoscopy. Medications: Atenolol Oral 100 mg, daily. Allergies: Adhesive Tape. No Known Drug Allergy. SOCIAL HISTORY Never smoker. No alcohol use or drug use. FAMILY HISTORY Denies family medical history. ADDITIONAL NOTES The nursing notes have been reviewed. PHYSICAL EXAM Vital Signs: 08/16/2016 00:29 BP: 133/98. HR: 73. RR: 20. O2 saturation: 100%. Temp: 97.8 F. Pain level now: 0/10. Have been reviewed. Appearance: Alert. No acute distress. Eyes: Pupils equal, round and reactive to light. Funduscopic exam normal. ENT: Pharynx normal. Neck: Normal inspection. Neck supple. No JVD or carotid bruit. CVS: Normal heart rate and rhythm. Heart sounds normal. Respiratory: No respiratory distress. Breath sounds normal. Abdomen: No visible injury. Soft and nontender. Bowel sounds normal. No organomegaly. No mass. Back: Normal inspection. Skin: Skin warm and dry. Normal skin color. Normal skin turgor. Extremities: Extremities exhibit normal ROM. No calf tenderness. No lower extremity edema. PROGRESS AND PROCEDURES Course of Care: Patient is stable. Patient/family counseled. Old medical records reviewed. Disposition: Discharged. Condition: stable. CLINICAL IMPRESSION Normal exam. INSTRUCTIONS Warnings: Further evaluation is necessary. GENERAL WARNINGS: Return or contact your physician immediately if your condition worsens or changes unexpectedly, if not improving as expected, or if other problems arise. Follow-up: Follow up with your doctor in seven days. Call for the next available appointment. Understanding of the discharge instructions verbalized by patient. (Electronically signed by Lalito Mao MD 08/16/2016 6:00)
--- NOTE | 2016-08-16 00:57 | ED NURSING NOTES ---
Clinical Report - Nurses [facility] [address] [place] [address] 08/16/2016 0:27 Patient: MICHELLE JAY TRIAGE Triage time 00:29. Acuity: LEVEL 4. Chief Complaint: ("high blood pressure" at home). Alert. No acute distress. PAULO COMA SCORE: Paulo Coma Scale: 15- eyes open spontaneously (4); best verbal response- oriented x 4 (5); best motor response- obeys commands (6). --00:34 Fred Nielsen R.N. 00:29 08/16/16. BP: 133/98 taken on the left arm, while sitting. HR: 73. RR: 20. O2 saturation: 100% on room air. Temp: 97.8 F (oral). Pain level now: 0/10. --00:34 Fred Nielsen R.N. Weight: 86.1 kg stated. Height/Length: 65 inches Per Patient. BMI: 31.6. --00:29 Fred Nielsen R.N. Medications Atenolol Oral 100 mg, daily. --00:30 Fred Nielsen R.N. Allergies No Known Drug Allergy. --00:30 Fred Nielsen R.N. Adhesive Tape. --00:30 Fred Nielsen R.N. History Arrived by private vehicle. Historian: patient. Unaccompanied. This started just prior to arrival. PAST MEDICAL HX: Denies current : pt denies . SOCIAL HX: Never smoker. No alcohol use or drug use. ( Denies HI/SI). ABUSE ASSESSMENT: No report of abuse. SELF HARM ASSESSMENT: A self harm assessment was performed. The patient answered "no" to the question "Do you have thoughts of harming or killing yourself?" and "Are you here because you tried to hurt yourself?". FALL RISK ASSESSMENT: Fall risk assessment completed. No fall risk identified. NUTRITIONAL RISK ASSESSMENT: The nutritional risk assessment revealed no deficiencies. FUNCTIONAL ASSESSMENT: Functional assessment: no impairments noted. LEARNING NEEDS ASSESSMENT: The learning needs assessment revealed no barriers. SKIN INTEGRITY ASSESSMENT: Skin integrity risk assessment completed. No skin integrity risk identified. --00:34 Fred Nielsen R.N. PROBLEMS: Depression. Hyperlipidemia. Gastroesophageal Reflux Disease. Dyspnea. Prothrombin gene mutation. Protein C deficiency. Factor V Leiden mutation. Pulmonary Nodule. Chest Pain. Reflux. Diarrhea. Chest Wall Pain. LNMP - Last Normal Menstrual Period. Arrhythmia. Immunizations. Palpitations. Gastroenteritis. Hypertension. --00:31 Fred Nielsen R.N. ADDITIONAL SURGERIES: Cholecystectomy. . Ectopic . Endoscopy. --00:31 Fred Nielsen R.N. Interventions ID band on patient. To treatment room. --00:34 Fred Nielsen R.N. PHYSICAL ASSESSMENT Ambulatory to room. GENERAL / NEURO / PSYCH: Alert. Oriented X 4. Appears in no acute distress. RESPIRATORY: Respirations not labored. Breath sounds within normal limits. CVS: Normal sinus rhythm noted. No abnormal heart sounds. SKIN: Skin is warm and dry. Normal skin turgor. --00:35 Fred Nielsen R.N. NURSING PROGRESS NOTES Pulse oximeter and NIBP monitor placed on patient. Reassurance given. Two patient identifiers checked. Call light placed in reach. Side rails up x 1. Bed placed in lowest position. Brakes of bed on. Patient ready for evaluation- chart flagged. Patient waiting for evaluation. --00:35 Fred Nielsen R.N. DISPOSITION / DISCHARGE Departure time: 01:10. Condition at departure: stable. No learning barriers present. Discharge instructions provided and reviewed with the patient. Reviewed referrals for followup. Verbalized understanding. Written instructions provided in Occitan. No note given. The patient was discharged home and unaccompanied at time of discharge. She left the Emergency Department ambulatory and via private vehicle. Patient driving. --01:10 Fred Nielsen R.N. 01:09 08/16/16. BP: 123/74. HR: 59. RR: 18. O2 saturation: 100% on room air. Pain level now: 0/10. --01:10 Fred Nielsen R.N. Locked/Released at 08/16/2016 1:10 by Fred Nielsen R.N.
--- NOTE | 2016-08-16 00:57 | ED CLINICAL REPORT ---
Clinical Report - Physicians/Mid Levels [facility] [address] [place] [place] [address] 08/16/2016 0:27 Patient: MICHELLE JAY Time Seen: 00:37. Arrived- By private vehicle. Historian- patient. HISTORY OF PRESENT ILLNESS Chief Complaint: BLOOD PRESSURE CHECK and ELEVATED. This started just prior to arrival. No headache, fatigue or weakness. (patient was concerned because "the bottom number' on her home blood pressure monitor was elevated.). REVIEW OF SYSTEMS No chills, fever, sweats, calf pain or chest pain. No cough, difficulty breathing, pedal edema, palpitations or abdominal pain. No constipation, diarrhea, nausea, vomiting or urinary problems. All systems otherwise negative, except as recorded above. PAST HISTORY Problems: Depression. Hyperlipidemia. Gastroesophageal Reflux Disease. Dyspnea. Prothrombin gene mutation. Protein C deficiency. Factor V Leiden mutation. Pulmonary Nodule. Chest Pain. Reflux. Diarrhea. Chest Wall Pain. Arrhythmia. Palpitations. Gastroenteritis. Hypertension. Additional Surgeries: Cholecystectomy. . Ectopic . Endoscopy. Medications: Atenolol Oral 100 mg, daily. Allergies: Adhesive Tape. No Known Drug Allergy. SOCIAL HISTORY Never smoker. No alcohol use or drug use. FAMILY HISTORY Denies family medical history. ADDITIONAL NOTES The nursing notes have been reviewed. PHYSICAL EXAM Vital Signs: 08/16/2016 00:29 BP: 133/98. HR: 73. RR: 20. O2 saturation: 100%. Temp: 97.8 F. Pain level now: 0/10. Have been reviewed. Appearance: Alert. No acute distress. Eyes: Pupils equal, round and reactive to light. Funduscopic exam normal. ENT: Pharynx normal. Neck: Normal inspection. Neck supple. No JVD or carotid bruit. CVS: Normal heart rate and rhythm. Heart sounds normal. Respiratory: No respiratory distress. Breath sounds normal. Abdomen: No visible injury. Soft and nontender. Bowel sounds normal. No organomegaly. No mass. Back: Normal inspection. Skin: Skin warm and dry. Normal skin color. Normal skin turgor. Extremities: Extremities exhibit normal ROM. No calf tenderness. No lower extremity edema. PROGRESS AND PROCEDURES Course of Care: Patient is stable. Patient/family counseled. Old medical records reviewed. Disposition: Discharged. Condition: stable. CLINICAL IMPRESSION Normal exam. INSTRUCTIONS Warnings: Further evaluation is necessary. GENERAL WARNINGS: Return or contact your physician immediately if your condition worsens or changes unexpectedly, if not improving as expected, or if other problems arise. Follow-up: Follow up with your doctor in seven days. Call for the next available appointment. Understanding of the discharge instructions verbalized by patient. (Electronically signed by Lalito Mao MD 08/16/2016 6:00)
--- NOTE | 2016-08-16 06:00 | ED MAR SUMMARY ---
..... Medication Administration Record [facility] [address], [place] [id number] Patient: MICHELLE JAY Visit ID: [id number] 50y, F Weight: 86.1 kg Height/Length: 65 in BMI: 31.6 ALLERGIES: Adhesive Tape, No Known Drug Allergy
--- NOTE | 2016-08-16 06:00 | ED MED RECONCILIATION SUMMARY ---
Patient: MICHELLE JAY Medication Reconciliation Report [facility] VisitID: [id number] [address] [place] [address] 50y, F Registration Date/Time: 08/16/2016 Weight: 86.1 kg Height/Length: 65 in. BMI: 31.6 ALLERGIES: Adhesive Tape, No Known Drug Allergy The patient's Home Medications are listed below: THE FOLLOWING MEDICATIONS NEED TO BE RECONCILED: Atenolol Oral 100 mg, daily The source(s) of the original Home Medication information: Not obtained. The following Medications were given to the patient in the Emergency Department: None. The following Medications were prescribed to the patient: None.
--- NOTE | 2016-08-16 06:00 | ED DISCHARGE INSTRUCTIONS ---
Patient: MICHELLE JAY General Instructions [facility] VisitID: [id number] [address] [place] [address] 50y, F Registration Date/Time: 08/16/2016 Normal exam. INSTRUCTIONS Warnings: Further evaluation is necessary. GENERAL WARNINGS: Return or contact your physician immediately if your condition worsens or changes unexpectedly, if not improving as expected, or if other problems arise. Follow-up: Follow up with your doctor in seven days. Call for the next available appointment. Understanding of the discharge instructions verbalized by patient. ADDITIONAL INFORMATION Normal Exam [6Yr - Adult] Based on your or your child's exam today, there are no signs of illness or injury. Be assured that the symptoms that worried you are normal. They do not suggest any illness requiring testing or treatment at this time. Home Care: You (or your child) can return to normal activities and diet. If you or your child have new or unusual symptoms not already discussed today, contact the doctor. Follow Up with the doctor for the next routine appointment. For more information: For childrens health information: www.kidshealth.org For adult health information: www.[facility].org You have been given the following additional information: Normal Exam, (Child) (Adult) (Electronically signed by Lalito Mao MD 08/16/2016 6:00)
--- NOTE | 2016-08-16 06:00 | ED MAR SUMMARY ---
..... Medication Administration Record [facility] [address], [place] [id number] Patient: MICHELLE JAY Visit ID: [id number] 50y, F Weight: 86.1 kg Height/Length: 65 in BMI: 31.6 ALLERGIES: Adhesive Tape, No Known Drug Allergy
--- NOTE | 2016-08-16 06:00 | ED DISCHARGE INSTRUCTIONS ---
Patient: MICHELLE JAY General Instructions [facility] VisitID: [id number] [address] [place] [address] 50y, F Registration Date/Time: 08/16/2016 Normal exam. INSTRUCTIONS Warnings: Further evaluation is necessary. GENERAL WARNINGS: Return or contact your physician immediately if your condition worsens or changes unexpectedly, if not improving as expected, or if other problems arise. Follow-up: Follow up with your doctor in seven days. Call for the next available appointment. Understanding of the discharge instructions verbalized by patient. ADDITIONAL INFORMATION Normal Exam [6Yr - Adult] Based on your or your child's exam today, there are no signs of illness or injury. Be assured that the symptoms that worried you are normal. They do not suggest any illness requiring testing or treatment at this time. Home Care: You (or your child) can return to normal activities and diet. If you or your child have new or unusual symptoms not already discussed today, contact the doctor. Follow Up with the doctor for the next routine appointment. For more information: For childrens health information: www.kidshealth.org For adult health information: www.[facility]org You have been given the following additional information: Normal Exam, (Child) (Adult) (Electronically signed by Lalito Mao MD 08/16/2016 6:00)
--- NOTE | 2016-08-16 06:00 | ED MED RECONCILIATION SUMMARY ---
Patient: MICHELLE JAY Medication Reconciliation Report [facility] VisitID: [id number] [address] [place] [place] [address] 50y, F Registration Date/Time: 08/16/2016 Weight: 86.1 kg Height/Length: 65 in. BMI: 31.6 ALLERGIES: Adhesive Tape, No Known Drug Allergy The patient's Home Medications are listed below: THE FOLLOWING MEDICATIONS NEED TO BE RECONCILED: Atenolol Oral 100 mg, daily The source(s) of the original Home Medication information: Not obtained. The following Medications were given to the patient in the Emergency Department: None. The following Medications were prescribed to the patient: None.
== END 2016-08-16 01:08 | disposition home or self-care (01) ==
LOC: ED SRH 00:26
DX: Z03.89 Encounter for observation for other suspected diseases and conditions ruled out (principal); I10 Essential (primary) hypertension; Z79.899 Other long term (current) drug therapy

== ENCOUNTER 2016-08-21 11:23 | Emergency (ER) | payer OTHER ==
--- NOTE | 2016-08-21 12:13 | DIAGNOSTIC IMAGING REPORT ---
PROCEDURE: XR CHEST 1 VIEW INDICATION: CHEST PAIN TECHNIQUE: Single view chest. 1203 hours COMPARISON: 05/31/2016 FINDINGS: The heart size at the upper limits of normal. Normal aortic contour. No central vascular congestion. Mildly hyperlucent lungs in the upper lobes bilaterally. No focal consolidation, pleural effusion, or pneumothorax. Intact osseous structures. IMPRESSION: 1. No acute process. 2. Upper lobe lucency suggestive of mild emphysema. Correlate clinically.
--- NOTE | 2016-08-21 14:18 | ED NURSING NOTES ---
Clinical Report - Nurses [facility] [address] [place] [address] 08/21/2016 11:24 Patient: MICHELLE JAY TRIAGE Triage time 11:35. Acuity: LEVEL 3. Chief Complaint: CHEST PAIN and DISCOMFORT. 11:36 08/21/16. 11:35 08/21/16. Alert. No acute distress. SEPSIS SCREEN: Sepsis Screen. Negative (no infection suspected/documented). --11:39 Hair Hernandez R.N. 11:35 08/21/16. BP: 114/65. HR: 64. RR: 18. O2 saturation: 100% on room air. Temp: 98.1 F (oral). Pain level now: 310. --11:39 Hair Hernandez R.N. Weight: 86.1 kg stated. Height/Length: 65 inches Per Patient. BMI: 31.6. --11:35 Hair Hernandez R.N. Medications Atenolol Oral 100 mg, daily. --11:37 Hair Hernandez R.N. Medication/allergy information source: the patient. --11:39 Hair Hernandez R.N. Allergies Adhesive Tape. --11:37 Hair Hernandez R.N. History Arrived by private vehicle. Historian: patient. Accompanied by family. Primary physician (WILFRED NUNES). 11:36 08/21/16. Onset. (2 days ago). She has had mild difficulty breathing. The patient has also had dyspnea on exertion. Treatment VEGETABLE GROWER: None. PAST MEDICAL HX: The patient is post-menopausal. Immunizations not up to date. SOCIAL HX: Never smoker. No alcohol use or drug use. No infectious disease exposure. ABUSE ASSESSMENT: No report of abuse. FALL RISK ASSESSMENT: Fall risk assessment completed. No fall risk identified. NUTRITIONAL RISK ASSESSMENT: The nutritional risk assessment revealed no deficiencies. FUNCTIONAL ASSESSMENT: Functional assessment: no impairments noted. LEARNING NEEDS ASSESSMENT: The learning needs assessment revealed no barriers. SKIN INTEGRITY ASSESSMENT: Skin integrity risk assessment completed. No skin integrity risk identified. --11:39 Hair Hernandez R.N. PROBLEMS: Depression. Hyperlipidemia. Gastroesophageal Reflux Disease. Dyspnea. Prothrombin gene mutation. Protein C deficiency. Factor V Leiden mutation. Pulmonary Nodule. Chest Pain. Reflux. Diarrhea. Chest Wall Pain. Arrhythmia. Immunizations. Palpitations. Gastroenteritis. Hypertension. --11:37 Hair Hernandez R.N. ADDITIONAL SURGERIES: Cholecystectomy. . Ectopic . Endoscopy. --11:37 Hair Henrandez R.N. Assessment 11:36 08/21/16. --11:39 Hair Hernandez R.N. Interventions 11:35 08/21/16. 11:36 08/21/16. ID and allergy band on patient. To treatment room. --11:39 Hair Hernandez R.N. PHYSICAL ASSESSMENT 11:38 08/21/16. Ambulatory to room. GENERAL / NEURO / PSYCH: Alert. Oriented X 4. Appears in no acute distress. RESPIRATORY: Respirations not labored. Chest nontender. CVS: Capillary refill less than 2 seconds. SKIN: Skin is warm and dry. --11:38 Hair Hernandez R.N. NURSING PROGRESS NOTES 11:38 08/21/16. The plan of care for this patient has been created. athletic monitor, pulse oximeter and NIBP monitor placed on patient; monitor alarms on. Patient gowned. Head of bed elevated. Two patient identifiers checked. Call light placed in reach. Side rails up x 2. Bed placed in lowest position. Brakes of bed on. --11:38 Hair Hernandez R.N. 11:38 08/21/16. Patient ready for evaluation- chart flagged and notification provided. --11:38 Hair Hernandez R.N. 11:41 08/21/16. EKG time: (1144 AM). EKG was ordered, performed by a tech and shown to the ED physician. --11:41 Hair Hernandez R.N. 11:42 08/21/16. Cardiac rhythm: normal sinus rhythm. --11:42 Hair Hernandez R.N. 11:42 08/21/16. athletic monitor, pulse oximeter and NIBP monitor placed on patient; monitor alarms on. --11:42 Hair Hernandez R.N. 11:48 08/21/2016 Aspirin PO 325 mg given. Allergies verified and confirmed 5 rights. --12:13 Hair Hernandez R.N. 13:05 08/21/16. BP: 114/76. HR: 72. RR: 14. O2 saturation: 100% on room air. --13:05 Hair Hernandez R.N. 12:41 08/21/2016 Site #1 started via IV in the right antecubital space with an 22g angiocath; two attempts. --13:06 Hair Hernandez R.N. 13:08/21/16. Cardiac rhythm: normal sinus rhythm. --13:05 Hair Hernandez R.N. 13:06 08/21/2016 Site #1 removed (Painful DC'd IV intact). --13:06 Hair Hernandez R.N. 13:18 08/21/16. ( US at bedside to place US Guided IV). --13:18 Hair Hernandez R.N. Cardiac rhythm: normal sinus rhythm. --14:04 Hair Hernandez R.N. 13:02 08/21/16. BP: 107/48. HR: 68. RR: 12. O2 saturation: 100% on room air. --14:04 Hair Hrenandez R.N. 14:05 08/21/16. Cardiac rhythm: normal sinus rhythm. --14:05 Hair Hernandez R.N. 14:08/21/16. BP: 126/75. HR: 68. RR: 13. O2 saturation: 99%. --14:05 Hair Hernandez R.N. 14:17 08/21/16. ( Pt if refusing CT scan, pt also refusing V;Q scan and anticoagulation, pt does not want any further treatment, told by MD to sign pt out AMA and to follow up with PCP). --14:18 Hair Hernandez R.N. DISPOSITION / DISCHARGE 14:18 08/21/16. Condition at departure: improved. The goals identified in the patient's plan of care were met. No learning barriers present. Discharge instructions provided and reviewed with the patient. Reviewed warnings. Reviewed medication(s). Treatments reviewed. Patient verbalized understanding. Written instructions provided in Cuban. The patient left the Emergency Department against medical advice and without completion of treatment. The patient appears to be alert and oriented x4. She stated is leaving the ED to go to their primary care physician. Notified the ED physician of patient departure. Patient signed form prior to leaving. She left the Emergency Department ambulatory and via private vehicle. The patient was discharged by the physician. She was discharged home. She left the Emergency Department ambulatory and via private vehicle. Patient driving. FALL RISK ASSESSMENT: Fall risk assessment completed. No fall risk identified. --14:18 Hair Hernandez R.N. 14:04 08/21/16. BP: 126/75. HR: 68. RR: 13. O2 saturation: 99%. --14:18 Hair Hernandez R.N. 14:18 08/21/16. Departure time: 14:18. --14:18 Hair Hernandez R.N. 14:27 08/21/16. ( Pt states she will follow up with her PCP today or tomorrow). --14:27 Hair Hernandez R.N. Locked/Released at 08/21/2016 14:27 by Hair Hernandez R.N.
--- NOTE | 2016-08-21 14:18 | ED CLINICAL REPORT ---
Clinical Report - Physicians/Mid Levels [facility] [address] [place] [address] 08/21/2016 11:24 Patient: MICHELLE JAY Time Seen: 11:46. Arrived- By private vehicle. Historian- patient. HISTORY OF PRESENT ILLNESS Chief Complaint: CHEST PAIN. At its maximum, severity described as 3 / 10. When seen in the E.D., it was gone. Modifying factors- worsened by exertion. Relieved by rest. This started about 1 week ago and is now gone. It was abrupt in onset and has been intermittent. Onset during light activity and moderate exertion. It is described as tightness and burning and it is described as located in the right chest and central chest area. No radiation. No nausea, vomiting or diaphoresis. She has had moderate difficulty breathing on exertion. REVIEW OF SYSTEMS No chills, fever, sweats, calf pain or pedal edema. No palpitations, abdominal pain, constipation, diarrhea or nausea. No vomiting or urinary problems. She had a stress test at [place] in April of this year. All systems otherwise negative, except as recorded above. PAST HISTORY PCP - WILFRED NUNES SOCIAL HISTORY Never smoker. No alcohol use or drug use. FAMILY HISTORY Premature onset heart disease in first-degree relative (mother, father and sibling). ADDITIONAL NOTES The nursing notes have been reviewed. PHYSICAL EXAM Vital Signs: 08/21/2016 11:35 BP: 114/65. HR: 64. RR: 18. O2 saturation: 100%. Temp: 98.1 F. Pain level now: 3/10. Have been reviewed. Appearance: Alert. Eyes: Pupils equal, round and reactive to light. ENT: Pharynx normal. Neck: Normal inspection. Neck supple. No JVD. CVS: Normal heart rate and rhythm. Heart sounds normal. Respiratory: No respiratory distress. Breath sounds normal. Abdomen: Soft and nontender. Bowel sounds normal. No organomegaly. No mass. Back: Normal external inspection. Skin: Skin warm and dry. Normal skin color. No rash. Normal skin turgor. Extremities: Extremities exhibit normal ROM. No calf tenderness. No lower extremity edema. LABS, X-RAYS, AND EKG EKG: Rate: 68. Non-specific ST segment / T wave abnormalities. Changes present when compared to prior EKG. (31 May 2016). Chest X-ray: (MPRESSION: 1. No acute process. 2. Upper lobe lucency suggestive of mild emphysema. Correlate clinically.). The X-rays were interpreted by the radiologist and contemporaneously by me. Laboratory Tests: CBC w Diff: (MARY: 08/21/2016 12:19) ( MsgRcvd 08/21/2016 12:33) Final results Test Result Flag Units (Reference) WHITE BLOOD COUNT 6.5 K/uL (4.5-11.5) RED BLOOD COUNT 4.19 M/uL (4.00-5.20) HEMOGLOBIN 12.5 gm/dL (12.0-16.0) HEMATOCRIT 37.8 % (36.0-46.0) MEAN CELL VOLUME 90 fL (80-100) MEAN CORPUSCULAR HGB 30 pg (26-34) MEAN CORPUSCULAR HGB CONC 33 g/dL (31-37) RED CELL DISTRIBUTION WIDTH 13.0 % (11.6-14.8) PLATELET COUNT 247 K/uL (150-400) NEUTROPHIL % 67.2 % (50-75) LYMPH % 24.1 L % (25-40) MONO % 7.4 % (3-14) EOSINOPHIL % 0.9 % (0-4) BASOPHIL % 0.4 % (0-2) PT with INR: (MARY: 08/21/2016 12:19) ( MsgRcvd 08/21/2016 12:46) Final results Test Result Flag Units (Reference) INR 0.9 (0.8-1.2) Low Intensity Therapy: INR 1.5-2.0 PT range 18.5-23.1Mod.Intensity Therapy: INR 2.0-3.0 PT range 23.1-31.5High Intensity Therapy: INR 2.5-3.5 PT range 27.4-35.5High Intensity Therapy 2: INR 3.0-4.0 PT range 31.5-39.3 APTT 30 SECONDS (24-34) D-DIMER QUANTITATIVE 1.11 H ug/mLFEU (0.27-0.52) The primary value of this quantitative assay relates toits negative predictive value (i.e. exclusion) of pulmonaryembolism/deep vein thrombosis/DIC.Elevated levels of d-dimer may also occur with:, age, cancer, inflammation, liver disease,post-op, infection, hematoma, coronary disease, peripheralarteriopathy, bleeding disorders and thrombolytic treatment.Results should be correlated with other clinical andradiological data.Testing Methodology: Latex Immunoassay BNP: (MARY: 08/21/2016 12:19) ( MegRcvd 08/21/2016 12:48) Final results Test Result Flag Units (Reference) B-TYPE NATRIURETIC PEPTIDE 55.5 pg/ml (5-100) CHEM 13 PANEL: (MARY: 08/21/2016 12:19) ( MegRcvd 08/21/2016 12:55) Final results Test Result Flag Units (Reference) GLUCOSE 103 mg/dL (70-110) BUN 17 mg/dL (7-18) CREATININE 1.0 mg/dL (0.6-1.3) Estimated GFR >60 mL/min Estimated GFR- >60 mL/min Note: Persistent reduction over 3 months in eGFR<60 mL/min/1.73 m2 defines CKD. Patients with eGFR values>=60 mL/min/1.73 m2 may also have CKD if evidence ofpersistent proteinuria. Additional information may be foundat www.kidney.org. SODIUM 141 mmol/L (136-145) POTASSIUM 3.9 mmol/L (3.5-5.1) CHLORIDE 103 mmol/L (98-107) CARBON DIOXIDE 26 mmol/L (21-32) CALCIUM 9.0 mg/dL (8.5-10.1) TOTAL PROTEIN 7.6 g/dL (6.4-8.2) ALBUMIN 3.5 g/dL (3.3-5.0) BILIRUBIN, TOTAL 0.5 mg/dL (0.0-1.0) ALKALINE PHOSPHATASE 78 U/L (46-116) AST (SGOT) 23 U/L (15-37) ALT (SGPT) 31 U/L (12-78) MAGNESIUM 1.9 mg/dL (1.8-2.4) CPK 105 U/L (24-260) TROPONIN I <0.05 ng/mL (0.00-1.5) TROPONIN REFERENCE RANGE:<0.1 NEGATIVE0.1-1.5 INDETERMINANT>1.5 POSITIVE . PROGRESS AND PROCEDURES Course of Care: I had an extended discussion with the patient regarding the significance of her elevated d-dimer. I explained that I could not exclude a pulmonary embolism as the cause of her chest pain or trouble breathing without further imaging. She has had several CAT scan images performed in the not too distant past, she says. She would prefer not to have a CTA today. I suggested that we could treat her in the interim with Lovenox and arrange for a V/Q scan. She states that she does not want to pursue either of these. She says that she has been worked up for "clots" before and that that is not what is going on. She acknowledges the risk of a missed or erroneous diagnosis without further workup. She departed against medical advice. Patient/family counseled. Old medical records reviewed. CLINICAL IMPRESSION Chest pain. Dyspnea (Electronically signed by Lalito Mao MD 08/23/2016 1:57)
--- NOTE | 2016-08-21 14:18 | ED ORDER SUMMARY ---
..... Patient: MICHELLE JAY OrderSheet [facility] VisitID: [id number] [address] [place] [address] 50y, F Registration Date/Time: 08/21/2016 ORDER SHEET Weight: 86.1 kg (stated) Allergies: Adhesive Tape GENERAL ORDERS: Chest 1V Urgent (11:40 08/21/2016 JBoardley R.N. per protocol) (Ack 11:41 Saleem) (12:04 JBoardley R.N.) [place] (Continuous) (11:40 08/21/2016 JBoardley R.N. per protocol) (11:40 JBoardley R.N.) Cardiac Panel Stat (11:40 08/21/2016 JBoardley R.N. per protocol) (Ack 11:41 Saleem) (12:22 JBoardley R.N.) Pulse oximeter (11:40 08/21/2016 JBoardley R.N. per protocol) (11:40 JBoardley R.N.) EKG - ER Stat (11:40 08/21/2016 JBoardley R.N. per protocol) (11:40 JBoardley R.N.) PT with INR Urgent (11:47 08/21/2016 Conor LANZA) (Ack 11:49 Saleem) (12:22 JBoardley R.N.) PTT Urgent (11:47 08/21/2016 Conor LANZA) (Ack 11:49 Saleem) (12:22 JBoardley R.N.) D-Dimer Urgent (11:47 08/21/2016 Conor LANZA) (Ack 11:49 Saleem) (12:22 JBoardley R.N.) BNP Urgent (11:47 08/21/2016 Conor LANZA) (Ack 11:49 Saleem) (12:22 JBoardley R.N.) MEDICATION ORDERS: Aspirin PO 325 mg (NOW) (11:51 08/21/2016 Conor LANZA) (Ack 12:04 JBoardley R.N.) (12:13 JBoardley R.N.) IV FLUIDS: IV Saline Lock (11:40 08/21/2016 Yudi De Anda per protocol) (Ack 11:40 Yudi De Anda) ORDER SHEET NOTES: [Electronically signed by Hair Hernandez R.N. (08/21/2016)] [Electronically signed by Lalito Mao MD (01:57 08/23/2016)] [Electronically locked/signed by Hair Hernandez R.N. (08/21/2016)]
--- NOTE | 2016-08-21 14:18 | ED ORDER SUMMARY ---
..... Patient: MICHELLE JAY OrderSheet [facility] VisitID: [id number] [address] [place] [address] 50y, F Registration Date/Time: 08/21/2016 ORDER SHEET Weight: 86.1 kg (stated) Allergies: Adhesive Tape GENERAL ORDERS: Chest 1V Urgent (11:40 08/21/2016 JBoardley R.N. per protocol) (Ack 11:41 Saleem) (12:04 JBoardley R.N.) House Furnishings Supervisor (Continuous) (11:40 08/21/2016 JBoardley R.N. per protocol) (11:40 JBoardley R.N.) Cardiac Panel Stat (11:40 08/21/2016 JBoardley R.N. per protocol) (Ack 11:41 Saleem) (12:22 JBoardley R.N.) Pulse oximeter (11:40 08/21/2016 JBoardley R.N. per protocol) (11:40 JBoardley R.N.) EKG - ER Stat (11:40 08/21/2016 JBoardley R.N. per protocol) (11:40 JBoardley R.N.) PT with INR Urgent (11:47 08/21/2016 Conor LANZA) (Ack 11:49 Saleem) (12:22 JBoardley R.N.) PTT Urgent (11:47 08/21/2016 Conor LANZA) (Ack 11:49 Saleem) (12:22 JBoardley R.N.) D-Dimer Urgent (11:47 08/21/2016 Conor LANZA) (Ack 11:49 Saleem) (12:22 JBoardley R.N.) BNP Urgent (11:47 08/21/2016 Conor LANZA) (Ack 11:49 Saleem) (12:22 JBoardley R.N.) MEDICATION ORDERS: Aspirin PO 325 mg (NOW) (11:51 08/21/2016 Conor LANZA) (Ack 12:04 JBoardley R.N.) (12:13 JBoardley R.N.) IV FLUIDS: IV Saline Lock (11:40 08/21/2016 Yudi De Anda per protocol) (Ack 11:40 Yudi De Anda) ORDER SHEET NOTES: [Electronically signed by Hair Hernandez R.N. (08/21/2016)] [Electronically signed by Lalito Mao MD (01:57 08/23/2016)] [Electronically locked/signed by Hair Hernandez R.N. (08/21/2016)]
--- NOTE | 2016-08-21 14:18 | ED NURSING NOTES ---
Clinical Report - Nurses [facility] [address] [place] [address] 08/21/2016 11:24 Patient: MICHELLE JAY TRIAGE Triage time 11:35. Acuity: LEVEL 3. Chief Complaint: CHEST PAIN and DISCOMFORT. 11:36 08/21/16. 11:35 08/21/16. Alert. No acute distress. SEPSIS SCREEN: Sepsis Screen. Negative (no infection suspected/documented). --11:39 Hair Hernandez R.N. 11:35 08/21/16. BP: 114/65. HR: 64. RR: 18. O2 saturation: 100% on room air. Temp: 98.1 F (oral). Pain level now: 310. --11:39 Hair Hernandez R.N. Weight: 86.1 kg stated. Height/Length: 65 inches Per Patient. BMI: 31.6. --11:35 Hair Hernandez R.N. Medications Atenolol Oral 100 mg, daily. --11:37 Hair Hernandez R.N. Medication/allergy information source: the patient. --11:39 Hair Hernandez R.N. Allergies Adhesive Tape. --11:37 Hair Hernandez R.N. History Arrived by private vehicle. Historian: patient. Accompanied by family. Primary physician (WILFRED NUNES). 11:36 08/21/16. Onset. (2 days ago). She has had mild difficulty breathing. The patient has also had dyspnea on exertion. Treatment DIRECT CARE STAFFER: None. PAST MEDICAL HX: The patient is post-menopausal. Immunizations not up to date. SOCIAL HX: Never smoker. No alcohol use or drug use. No infectious disease exposure. ABUSE ASSESSMENT: No report of abuse. FALL RISK ASSESSMENT: Fall risk assessment completed. No fall risk identified. NUTRITIONAL RISK ASSESSMENT: The nutritional risk assessment revealed no deficiencies. FUNCTIONAL ASSESSMENT: Functional assessment: no impairments noted. LEARNING NEEDS ASSESSMENT: The learning needs assessment revealed no barriers. SKIN INTEGRITY ASSESSMENT: Skin integrity risk assessment completed. No skin integrity risk identified. --11:39 Hair Hernandez R.N. PROBLEMS: Depression. Hyperlipidemia. Gastroesophageal Reflux Disease. Dyspnea. Prothrombin gene mutation. Protein C deficiency. Factor V Leiden mutation. Pulmonary Nodule. Chest Pain. Reflux. Diarrhea. Chest Wall Pain. Arrhythmia. Immunizations. Palpitations. Gastroenteritis. Hypertension. --11:37 Hair Hernandez R.N. ADDITIONAL SURGERIES: Cholecystectomy. . Ectopic . Endoscopy. --11:37 Hair Hernandez R.N. Assessment 11:36 08/21/16. --11:39 Hair Hernandez R.N. Interventions 11:35 08/21/16. 11:36 08/21/16. ID and allergy band on patient. To treatment room. --11:39 Hair Hernandez R.N. PHYSICAL ASSESSMENT 11:38 08/21/16. Ambulatory to room. GENERAL / NEURO / PSYCH: Alert. Oriented X 4. Appears in no acute distress. RESPIRATORY: Respirations not labored. Chest nontender. CVS: Capillary refill less than 2 seconds. SKIN: Skin is warm and dry. --11:38 Hair Hernandez R.N. NURSING PROGRESS NOTES 11:38 08/21/16. The plan of care for this patient has been created. vehicle monitor technician, pulse oximeter and NIBP monitor placed on patient; monitor alarms on. Patient gowned. Head of bed elevated. Two patient identifiers checked. Call light placed in reach. Side rails up x 2. Bed placed in lowest position. Brakes of bed on. --11:38 Hair Hernandez R.N. 11:38 08/21/16. Patient ready for evaluation- chart flagged and notification provided. --11:38 Hair Hernandez R.N. 11:41 08/21/16. EKG time: (1144 AM). EKG was ordered, performed by a tech and shown to the ED physician. --11:41 Hair Hernandez R.N. 11:42 08/21/16. Cardiac rhythm: normal sinus rhythm. --11:42 Hair Hernandez R.N. 11:42 08/21/16. vehicle monitor technician, pulse oximeter and NIBP monitor placed on patient; monitor alarms on. --11:42 Hair Hernandez R.N. 11:48 08/21/2016 Aspirin PO 325 mg given. Allergies verified and confirmed 5 rights. --12:13 Hair Hernandez R.N. 13:05 08/21/16. BP: 114/76. HR: 72. RR: 14. O2 saturation: 100% on room air. --13:05 Hair Hernandez R.N. 12:41 08/21/2016 Site #1 started via IV in the right antecubital space with an 22g angiocath; two attempts. --13:06 Hair Hernandez R.N. 13:08/21/16. Cardiac rhythm: normal sinus rhythm. --13:05 Hair Hernandez R.N. 13:06 08/21/2016 Site #1 removed (Painful DC'd IV intact). --13:06 Hair Hernandez R.N. 13:18 08/21/16. ( US at bedside to place US Guided IV). --13:18 Hair Hernandez R.N. Cardiac rhythm: normal sinus rhythm. --14:04 Hair Hernandez R.N. 13:02 08/21/16. BP: 107/48. HR: 68. RR: 12. O2 saturation: 100% on room air. --14:04 Hair Hernandez R.N. 14:05 08/21/16. Cardiac rhythm: normal sinus rhythm. --14:05 Hair Hernandez R.N. 14:08/21/16. BP: 126/75. HR: 68. RR: 13. O2 saturation: 99%. --14:05 Hair Hernandez R.N. 14:17 08/21/16. ( Pt if refusing CT scan, pt also refusing V;Q scan and anticoagulation, pt does not want any further treatment, told by MD to sign pt out AMA and to follow up with PCP). --14:18 Hair Hernandez R.N. DISPOSITION / DISCHARGE 14:18 08/21/16. Condition at departure: improved. The goals identified in the patient's plan of care were met. No learning barriers present. Discharge instructions provided and reviewed with the patient. Reviewed warnings. Reviewed medication(s). Treatments reviewed. Patient verbalized understanding. Written instructions provided in Colombian. The patient left the Emergency Department against medical advice and without completion of treatment. The patient appears to be alert and oriented x4. She stated is leaving the ED to go to their primary care physician. Notified the ED physician of patient departure. Patient signed form prior to leaving. She left the Emergency Department ambulatory and via private vehicle. The patient was discharged by the physician. She was discharged home. She left the Emergency Department ambulatory and via private vehicle. Patient driving. FALL RISK ASSESSMENT: Fall risk assessment completed. No fall risk identified. --14:18 Hair Hernandez R.N. 14:04 08/21/16. BP: 126/75. HR: 68. RR: 13. O2 saturation: 99%. --14:18 Hair Hernandez R.N. 14:18 08/21/16. Departure time: 14:18. --14:18 Hair Hernandez R.N. 14:27 08/21/16. ( Pt states she will follow up with her PCP today or tomorrow). --14:27 Hair Hernandez R.N. Locked/Released at 08/21/2016 14:27 by Hair Hernandez R.N.
--- NOTE | 2016-08-23 01:57 | ED MAR SUMMARY ---
..... Medication Administration Record [facility] [address] [place] [address] Patient: MICHELLE JAY Visit ID: [id number] 50y, F Weight: 86.1 kg Height/Length: 65 in BMI: 31.6 ALLERGIES: Adhesive Tape Given 11:48 08/21/2016 Hair Hernandez R.N. Medication Administered: ASPIRIN [PO], Dose: 325 mg PO. Medication Ordered: Aspirin PO 325 mg (NOW).
--- NOTE | 2016-08-23 01:57 | ED DISCHARGE INSTRUCTIONS ---
Patient: MICHELLE JAY General Instructions [facility] VisitID: [id number] [address] [place] [address] 50y, F Registration Date/Time: 08/21/2016 Chest pain. Dyspnea ADDITIONAL INFORMATION Chest Pain, Uncertain Cause Chest pain can happen for a number of reasons. Sometimes the cause can not be determined. If yourcondition does not seem serious, and your pain does not appear to be coming from your heart, your doctor may recommend watching it closely. Sometimes the signs of a serious problem take more time to appear. Therefore, watch for the warning signs listed below. Home care After your visit, follow these recommendations: Rest today and avoid strenuous activity. Take any prescribed medicine as directed. Follow-up care Follow up with your doctor or this facility as instructed or if you do not start to feel better within 24 hours. Call 911 Get immediate medical attention if any of the following occur: A change in the type of pain: if it feels different, becomes more severe, lasts longer, or begins to spread into your shoulder, arm, neck, jaw or back Shortness of breath or increased pain with breathing Weakness, dizziness, or fainting Rapid heart beat Get prompt medical attention Call your doctor right away if any of the following occur: Cough with dark colored sputum (phlegm) or blood Fever of 100.4F(38C) or higher, or as directed by your health care provider Swelling, pain or redness in one leg Dyspnea (Shortness Of Breath) Shortness of Breath (also known as "Dyspnea") is the sense that you can't catch your breath or can't get enough air. Dyspnea can be caused by many different conditions such as: Acute asthma attack Worsening of emphysema (also called "COPD") -- a lung diseasethat is caused by smoking A mucus plug blocks a large air passage in the lung -- this can occur with emphysema or chronic bronchitis Congestive Heart Failure ("CHF") -- when a weak heart muscle allows excess fluid to collect inthe lungs Panic attacks, anxiety -- fear can cause rapid breathing ("hyperventilation") Pneumonia -- infection in the lung tissue Exposure to toxic fumes or smoke Pulmonary embolus (blood clot to the lung) Based on your visit today, the exact cause of your shortness of breath is not certain. Your tests do not show any of the serious causes of dyspnea. Sometimes, further testing is needed to find out if a serious problem exists. Therefore, it is important for you to watch for any new symptoms or worsening of your condition and follow up with your doctor as directed. Home Care: When your symptoms are better, resume your usual activities. If you smoke, you need to stop. Join a stop-smoking program or ask your doctor for help. Follow Up with your doctor or as advised by our staff. Get Prompt Medical Attention if any of the following occur: Increasing shortness of breath or wheezing Redness, pain or swelling in one leg Swelling in both legs or ankles Unexpected weight gain Chest, arm, shoulder, neck or upper back pain Dizziness, weakness or fainting Palpitations (the sense that your heart is fluttering, beating fast or hard) Fever of 100.4F (38C) or higher, or as directed by your healthcare provider Cough with dark colored or bloody sputum (mucus) You have been given the following additional information: Chest Pain, Uncertain Cause Dyspnea (Electronically signed by Lalito Mao MD 08/23/2016 1:57)
--- NOTE | 2016-08-23 01:57 | ED MED RECONCILIATION SUMMARY ---
Patient: MICHELLE JAY Medication Reconciliation Report [facility] VisitID: [id number] [address] [place] [address] 50y, F Registration Date/Time: 08/21/2016 Weight: 86.1 kg Height/Length: 65 in. BMI: 31.6 ALLERGIES: Adhesive Tape The patient's Home Medications are listed below: THE FOLLOWING MEDICATIONS NEED TO BE RECONCILED: Atenolol Oral 100 mg, daily The source(s) of the original Home Medication information: patient The following Medications were given to the patient in the Emergency Department: Aspirin [PO] PO 325 mg, administered: 08/21/2016 11:48:00 AM The following Medications were prescribed to the patient: None.
--- NOTE | 2016-08-23 01:57 | ED MAR SUMMARY ---
..... Medication Administration Record [facility] [address] [place] [address] Patient: MICHELLE JYA Visit ID: [id number] 50y, F Weight: 86.1 kg Height/Length: 65 in BMI: 31.6 ALLERGIES: Adhesive Tape Given 11:48 08/21/2016 Hair Hernandez R.N. Medication Administered: ASPIRIN [PO], Dose: 325 mg PO. Medication Ordered: Aspirin PO 325 mg (NOW).
--- NOTE | 2016-08-23 01:57 | ED MED RECONCILIATION SUMMARY ---
Patient: MICHELLE JAY Medication Reconciliation Report [facility] VisitID: [id number] [address] [place] [address] 50y, F Registration Date/Time: 08/21/2016 Weight: 86.1 kg Height/Length: 65 in. BMI: 31.6 ALLERGIES: Adhesive Tape The patient's Home Medications are listed below: THE FOLLOWING MEDICATIONS NEED TO BE RECONCILED: Atenolol Oral 100 mg, daily The source(s) of the original Home Medication information: patient The following Medications were given to the patient in the Emergency Department: Aspirin [PO] PO 325 mg, administered: 08/21/2016 11:48:00 AM The following Medications were prescribed to the patient: None.
== END 2016-08-21 14:18 | disposition left against medical advice (07) ==
LOC: ED SRH 11:23
DX: R07.89 Other chest pain (principal); R06.00 Dyspnea, unspecified; I10 Essential (primary) hypertension; K21.9 Gastro-esophageal reflux disease without esophagitis; E78.5 Hyperlipidemia, unspecified; Z79.899 Other long term (current) drug therapy; Z88.8 Allergy status to other drugs, medicaments and biological substances
CPT/HCPCS: 90074; 90100; 90616; 91320; 91556; 92610; 92720; 94001; 94060; 95059